=== PATIENT | female | born 1975 | race Caucasian/White ===

== ENCOUNTER 2024-03-24 14:30 | Outpatient (CLI) | payer BC, SELFPAY | END 2024-03-24 14:31 | disposition home or self-care (01) | PROVIDERS: Visit Provider Family Medicine | DX: R10.11 Right upper quadrant pain (principal) | CPT/HCPCS: 80053; 83690 ==

== ENCOUNTER 2024-03-24 15:25 | Outpatient (CLI) | payer BC, SELFPAY ==
--- NOTE | 2024-03-24 16:00 | CRLHL7_ITS ---
For Patients: As a result of the Century Cures Act, medical imaging exams and procedure reports are released immediately into your electronic medical record. You may view this report before your referring provider. If you have questions, please contact your health care provider. INDICATION: Right upper quadrant pain. TECHNIQUE: Ultrasound abdomen limited. Sonographic images of the right upper quadrant were obtained using perez-scale and color Doppler images. COMPARISON: None. FINDINGS: Technically difficult/limited exam due to bowel gas and tenderness. Liver: Mildly echogenic solid lesion in the left lobe with mass effect on the capsule measures up to 1.5 cm. Possible additional smaller echogenic lesion in the right lobe. No evidence of intrahepatic biliary ductal dilatation. Normal directional flow is present in the main portal vein. Main portal vein measures 13 mm. Gallbladder: There is a 2 mm echogenic focus associated with the wall. No shadowing stones, wall thickening or pericholecystic fluid. Common bile duct: 4 mm. Pancreas: Unremarkable as imaged. Right kidney: 10.6 cm in pole to pole length. No evidence of hydronephrosis, stone or solid mass. Vasculature: Visualized aorta and IVC are normal. No free fluid evident. IMPRESSION: 1. Left hepatic lobe 1.5 cm solid lesion is incompletely characterized. Possible additional smaller lesion in the right lobe. Follow-up MRI liver protocol is recommended for further evaluation. 2. Small (2 mm) polyp, adherent sludge ball or nonshadowing stone associated with the gallbladder wall. 3. No biliary ductal dilatation. 4. No ascites. Dictated by Rayshawn Liang MD @ 03/24/2024 4:58:32 PM Dictated by: Rayshawn Liang MD @ 03/24/2024 16:58:51 (Electronically Signed)
== END 2024-03-24 15:26 | disposition home or self-care (01) ==
LOC: US 15:27
PROVIDERS: PCP Family Medicine; Visit Provider Family Medicine
DX: R10.11 Right upper quadrant pain (principal); K76.9 Liver disease, unspecified; K82.9 Disease of gallbladder, unspecified
CPT/HCPCS: 76705; 80053; 83690

== ENCOUNTER 2024-04-01 07:44 | Outpatient (CLI) | payer BC, SELFPAY | END 2024-04-01 07:45 | disposition home or self-care (01) | LOC: MRI 07:45 | PROVIDERS: PCP Family Medicine; Visit Provider Family Medicine | DX: R16.0 Hepatomegaly, not elsewhere classified (principal); K44.9 Diaphragmatic hernia without obstruction or gangrene; R93.89 Abnormal findings on diagnostic imaging of other specified body structures; R10.11 Right upper quadrant pain | CPT/HCPCS: 74183; A9575 ==

== ENCOUNTER 2024-04-26 10:19 | Emergency (ER) | payer BC, SELFPAY ==
[2024-04-26] VITALS (13 sets, daily range): BP systolic 130–134; BP diastolic 78–93; PULSE 60–89; RESP 11–16; TEMP 36.7; O2SAT 96–100; BMI 43.1
--- NOTE | 2024-04-26 11:03 | ED.GENADULT ---
HPI - General Adult General Chief complaint: Weakness Stated complaint: leg pain, weakness Time Seen by Provider: 04/26/24 11:03 History of Present Illness HPI narrative: Pt reports 3-4 days ago noticed a heaviness in her Right leg. The next day, felt more tingling in Right leg, then more tingling in Left leg. Has a feeling of cramping now in legs and arms. Unable to sleep last night due to discomfort. Feels as if she is having pinpricks of pain throughout her body now, face, arms, etc . Reports weakness/ fatigue. Has a history of vitamin deficiencies. Pt is scheduled for gallbladder removal on May 05. Reports reduced dietary intake due to discomfort with eating. 49-year-old woman presenting to the emergency department with concern of maybe 5 days of a heaviness in her right leg. She is felt than increased tingling there are and then some tingling in her left leg. Has tingling elsewhere in her body and sensation of pinpricks rather diffusely. Increasingly just fatigued with a sense of ?malaise?. She does report history of vitamin deficiency specifically B12 for which she receives injections including yesterday and having felt similar symptoms in the past with abnormalities of potassium as well. She does not have a history of gastric bypass. Has struggled for some time with gallbladder problems and is pending cholecystectomy on May 05. This heaviness in her right leg though as the new or sensation. It has not left her discoordinated. She has had a history of low vitamin-D as well. Apparently sees provider manages various vitamin levels. With this gallbladder discomfort/pain has been decreasing oral intake and is worried that this has destabilized vitamins Seen for preop yesterday in primary care and had unremarkable lumbar spine x-ray. While being triaged began to notice a more heaviness in her chest. No noted family history of neuromuscular disorders. She does not however know her paternal side. Further questioning regarding chest pain notes that she associates this with her gallbladder discomfort. It it hurts into her shoulder blades and then causes chest discomfort. When she is arching back it is exacerbating the chest discomfort as anticipated. 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 No alcohol use. What is your current living situation?: I presently have a place to live Problems where you live: no known problems In the past 12 months, utilities in danger of being shut off: no In past 12 months, lack of transportation kept you from medical appts, meetings, work, or getting things needed for daily living: no In the past 12 mos, have been you worried that your food would run out before you had money to buy more?: never true In the past 12 mos, the food you bought just didn't last and you didn't have money to buy more?: never true Smoking Status: Unknown if ever smoked Non-prescribed substance use: denies use How often does anyone, including family, friends and others, physically hurt you: never How often does anyone, including family, friends and others, insult or talk down to you: never How often does anyone, including family, friends and others, threaten you with harm: never How often does anyone, including family, friends and others, scream or curse at you: never Exam Narrative: Exam Narrative: Pleasant. NAD. Just looks as though she does does not feel very well. Moving all extremities without difficulty. Subjectively strange heaviness though in the right leg. Sensation intact throughout. No weakness is appreciated. Intact and equal DTRs in lower extremities. Cranial nerves 2-12 are intact. Normal [id number]. Const: Vital Signs, click to edit/add: Vital Signs - 24 hr 04/26/24 10:39 04/26/24 11:04 04/26/24 11:34 Temperature 98.1 F Pulse Rate 69 64 Pulse Rate [Pulse Oximeter] 89 Respiratory Rate 16 Blood Pressure 134/91 H 134/80 Blood Pressure [Ri ght Upper Arm] 130/93 H Pulse Oximetry 96 99 98 Oxygen Delivery Me thod Room Air 04/26/24 12:01 04/26/24 13:02 04/26/24 13:03 Temperature Pulse Rate 62 62 Pulse Rate [Pulse Oximeter] Respiratory Rate 11 L 12 Blood Pressure 131/82 130/78 Blood Pressure [Ri ght Upper Arm] Pulse Oximetry 98 99 Oxygen Delivery Me thod 04/26/24 13:15 04/26/24 13:30 04/26/24 13:45 Temperature Pulse Rate 61 60 61 Pulse Rate [Pulse Oximeter] Respiratory Rate Blood Pressure Blood Pressure [Ri ght Upper Arm] Pulse Oximetry 97 99 97 Oxygen Delivery Me thod 04/26/24 14:00 04/26/24 14:01 04/26/24 14:15 Temperature Pulse Rate 69 68 73 Pulse Rate [Pulse Oximeter] Respiratory Rate 12 Blood Pressure 130/86 Blood Pressure [Ri ght Upper Arm] Pulse Oximetry 98 98 98 Oxygen Delivery Me thod 04/26/24 14:29 Temperature Pulse Rate 68 Pulse Rate [Pulse Oximeter] Respiratory Rate 16 Blood Pressure 130/86 Blood Pressure [Ri ght Upper Arm] Pulse Oximetry 100 Oxygen Delivery Me thod Room Air Documenting provider has reviewed patient's vital signs: yes Course Vital Signs Vital signs: Initial Vital Signs Temperature 98.1 F 04/26/24 10:39 Temperature Source Temporal Artery Scan 04/26/24 10:39 Pulse Rate 89 04/26/24 10:39 Respiratory Rate 16 04/26/24 10:39 Blood Pressure 130/93 H 04/26/24 10:39 Blood Pressure Mean 105 04/26/24 10:39 Blood Pressure Position Sitting 04/26/24 10:39 Pulse Oximetry 96 04/26/24 10:39 Oxygen Delivery Method Room Air 04/26/24 10:39 Vital Signs Temperature 98.1 F 04/26/24 10:39 Pulse Rate 89 04/26/24 10:39 Respiratory Rate 16 04/26/24 10:39 Blood Pressure 130/93 H 04/26/24 10:39 Pulse Oximetry 96 04/26/24 10:39 Oxygen Delivery Method Room Air 04/26/24 10:39 Temperature 98.1 F 04/26/24 10:39 Pulse Rate 68 04/26/24 14:29 Respiratory Rate 16 04/26/24 14:29 Blood Pressure 130/86 04/26/24 14:29 Pulse Oximetry 100 04/26/24 14:29 Oxygen Delivery Method Room Air 04/26/24 14:29 Medications Administered Medications: Discontinued Medications Generic Name Dose Route Start Last Admin Trade Name Stephanie PRN Reason Stop Dose Admin Aspirin 324 mg 04/26/24 11:01 04/26/24 11:05 Aspirin 81 Mg Tab.Chew PO 04/26/24 11:02 324 mg ONCE ONE Administration Sodium Chloride 1,000 mls @ 1,000 mls/hr 04/26/24 12:45 04/26/24 14:25 0.9 % Sodium Chloride 1000 Ml IV 04/26/24 13:44 Infused .Q1H ONE Infusion Ondansetron HCl 4 mg 04/26/24 11:01 04/26/24 13:43 Ondansetron 2 Mg/Ml Inj IVP 04/26/24 11:02 Not Given ONCE ONE Medical Decision Making MDM Narrative Medical decision making narrative: Prior to my seeing Ms. Dunn, Had been ordered aspirin by other provider. Limited potential to evaluate for electrolyte abnormalities. Differential does include stroke though this is markedly subacute I do not appreciate any abnormality other than just sensory at this point. Would also have concerns over potential neuromuscular disorder, MS. Does not appear to be vascular in origin. Well-perfused and without pain. Do not have ability to do MRI here today on the weekend. Her primary concern is electrolyte abnormalities given history. labs reviewed. Reassuring. elevated B12 not inconsistent with recent injection I think. TSH is normal. per concerns vitamin-D and B6 are still pending. Given IV hydration here in the ER. Monitored over time here in the emergency department without further event. Might benefit from daily aspirin. See patient discharge plan for further discussion I would continue to focus on hydration. Yes, perhaps some of your symptoms are related to an inflammatory state. Pending yet are vitamin-D and vitamin B6 levels. I would message your primary for follow-up. You may want to pursue further imaging pending improvement of symptoms. Be seen for marked increase in focal numbness but especially isolated weakness. Medical Records Medical records reviewed: Yes I reviewed the patient's medical records Lab Data Lab results reviewed: Yes I reviewed the patient's lab results Labs: Lab Results 04/26/24 04/26/24 04/26/24 Range/Units 10:51 11:07 11:30 WBC 6.97 (4.50-11.00) K/uL RBC 5.00 (4.00-5.20) m/uL Hgb 15.3 (12.0-16.0) gm/dL Hct 45.6 (33.0-51.0) % MCV 91 (80-100) fL MCH 31 (26-34) pg MCHC 34 (32-36) gm/dL RDW Coeff of Keanu 12.5 (11.5-15.5) % Plt Count 260 (140-440) K/uL Neut % (Auto) 65.9 (42.0-72.0) % Lymph % (Auto) 23.5 (20-44) % Cook % (Auto) 8.3 (0.0-11.0) % Eos % (Auto) 1.6 (0.0-7.0) % Baso % (Auto) 0.6 (0.0-3.0) % Neut # (Auto) 4.59 (1.7-7.0) K/uL Lymph # (Auto) 1.64 (0.90-2.90) K/uL Cook # (Auto) 0.60 (0.00-0.90) K/UL Eos # (Auto) 0.11 (0.00-0.50) K/uL Baso # (Auto) 0.04 (0.00-0.30) K/uL Abs Immat Gran (auto) 0.01 (0.00-0.30) K/uL Imm/Tot Granulo (auto) 0.1 % Sodium 139 (135-149) mmol/L Potassium 3.9 (3.6-5.1) mmol/L Chloride 104 (96-114) mmol/L Carbon Dioxide 27 (20-32) mmol/L Anion Gap 8 (7-15) mEq/L BUN 15 (7-30) mg/dL Creatinine 1.0 (0.5-1.5) mg/dL Estimated Creat Clear 60.56 Estimated GFR 69 ml/min Glucose 98 (60-115) mg/dL Calcium 9.3 (8.4-10.6) mg/dL Magnesium 2.3 (1.5-2.6) mg/dL Vitamin B12 > 1000 H (243-894) pg/mL 25-OH Vitamin D Total 79 (30-80) ng/mL TSH 5.410 H (0.270-4.20) uIU/mL Lab Acknowledgement Test Added POC Troponin I 0.00 L (0.01-0.04) ng/ml 04/26/24 04/26/24 Range/Units 11:31 13:04 WBC (4.50-11.00) K/uL RBC (4.00-5.20) m/uL Hgb (12.0-16.0) gm/dL Hct (33.0-51.0) % MCV (80-100) fL MCH (26-34) pg MCHC (32-36) gm/dL RDW Coeff of Keanu (11.5-15.5) % Plt Count (140-440) K/uL Neut % (Auto) (42.0-72.0) % Lymph % (Auto) (20-44) % Cook % (Auto) (0.0-11.0) % Eos % (Auto) (0.0-7.0) % Baso % (Auto) (0.0-3.0) % Neut # (Auto) (1.7-7.0) K/uL Lymph # (Auto) (0.90-2.90) K/uL Cook # (Auto) (0.00-0.90) K/UL Eos # (Auto) (0.00-0.50) K/uL Baso # (Auto) (0.00-0.30) K/uL Abs Immat Gran (auto) (0.00-0.30) K/uL Imm/Tot Granulo (auto) % Sodium (135-149) mmol/L Potassium (3.6-5.1) mmol/L Chloride (96-114) mmol/L Carbon Dioxide (20-32) mmol/L Anion Gap (7-15) mEq/L BUN (7-30) mg/dL Creatinine (0.5-1.5) mg/dL Estimated Creat Clear Estimated GFR ml/min Glucose (60-115) mg/dL Calcium (8.4-10.6) mg/dL Magnesium (1.5-2.6) mg/dL Vitamin B12 (243-894) pg/mL 25-OH Vitamin D Total (30-80) ng/mL TSH (0.270-4.20) uIU/mL Lab Acknowledgement Test Added POC Troponin I 0.00 L (0.01-0.04) ng/ml ECG Data Attestation: I personally reviewed and interpreted this ECG as follows: (Normal sinus rhythm. Generally lower amplitude. Rate 67. EKG 2. Is also in sinus at a rate of 59. Otherwise unchanged.) Discharge Plan Discharge Clinical Impression: Neuropathy, Malaise and fatigue Patient Disposition: Home w/ Parent or Adult Condition: Improved Additional Instructions: I would continue to focus on hydration. Yes, perhaps some of your symptoms are related to an inflammatory state. Pending yet are vitamin-D and vitamin B6 levels. I would message your primary for follow-up. You may want to pursue further imaging pending improvement of symptoms. Be seen for marked increase in focal numbness but especially isolated weakness. Prescriptions: No Action levothyroxine 88 mcg capsule 88 mcg PO QDAY epinephrine [EpiPen] 0.3 mg/0.3 mL auto-injector 0.3 mg IM Q5-15M PRN Rx Instructions: do not exceed 3 doses per episode Follow Up/Referrals: Veronica Estevez MD [Primary Care Provider] - Stand Alone Forms: [employer] Info Instructions
[2024-04-26] MEDS: ASPIRIN 81 MG TAB.CHEW 324 MG PO (11:05)
[2024-04-26 11:22] LABS: Basophils Absolute Auto 0.04 K/uL (0.00-0.30); Basophils Percent Auto 0.6 % (0.0-3.0); Eosinophils Absolute Auto 0.11 K/uL (0.00-0.50); Eosinophils Percent Auto 1.6 % (0.0-7.0); Hematocrit 45.6 % (33.0-51.0); Hemoglobin* 15.3 gm/dL (12.0-16.0); Immature Granulocytes Abs Auto 0.01 K/uL (0.00-0.30); Immature Granulocytes Pct Auto 0.1 %; Lymphocytes Absolute Auto 1.64 K/uL (0.90-2.90); Lymphocytes Percent Auto 23.5 % (20-44); Mean Corpuscular HGB Conc 34 gm/dL (32-36); Mean Corpuscular Hemoglobin 31 pg (26-34); Mean Corpuscular Volume 91 fL (80-100); Monocytes Percent Auto 8.3 % (0.0-11.0); Neutrophils Absolute Auto 4.59 K/uL (1.7-7.0); Neutrophils Percent Auto 65.9 % (42.0-72.0); Platelet Count* 260 K/uL (140-440); RDW Coefficient of Variation % 12.5 % (11.5-15.5); White Blood Count* 6.97 K/uL (4.50-11.00)
[2024-04-26 11:23] LABS: Slide Review Reflex No
[2024-04-26 11:32] LABS: Chloride* 104 mmol/L (96-114); Sodium* 139 mmol/L (135-149)
[2024-04-26 11:33] LABS: Potassium* 3.9 mmol/L (3.6-5.1)
[2024-04-26 11:35] LABS: Anion Gap 8 mEq/L (7-15); Blood Urea Nitrogen* 15 mg/dL (7-30); Carbon Dioxide* 27 mmol/L (20-32); Est. Creatinine Clearance* 60.56; Estimated Glomerular Filt Rate 69 ml/min
[2024-04-26 11:36] LABS: Calcium* 9.3 mg/dL (8.4-10.6); Glucose* 98 mg/dL (60-115)
--- OUTSIDE RECORDS SUMMARY | 2024-04-26 11:41 | XMS_ITS ---
Author Organization [facility] Address [address] [place] [address] Care Team Providers Care Ship/Rec/Doc Control Name Role Phone Juliocesar June Primary Care Provider Unavailab FIDEL Javed Unavailable [phone] Corine Bullard Unavailable Unavailable Allergies Allergen (clinical drug ingredient) Drug/Non Drug Allergy documented on EMR Reaction Allergy Type Onset Date Status piperacillin / tazobactam Zosyn Unknown Drug Allergy Active ciprofloxacin Ciprofloxacin Unknown Drug Allergy Active REASON FOR VISIT ENT Follow Up Medications Medication SIG (Take, Route, Frequency, Duration) Notes Start Date End Date Status Doxycycline Active Citalopram Hydrobromide Active Mometasone Furoate 50 MCG/ACT 2 sprays in each nostril Nasally Twice a day for 30 day(s) 04/11/2013 Active Social History Tobacco Use: Social History Observation Description Date Details (start date - stop date) Never Smoker NA - NA Tobacco Control (Standard) Question Answer Notes Tobacco use: Nonsmoker Encounters Encounter Location Date Provider Diagnosis [facility] [address] [place] [address] 11/08/2023 FIDEL GREENE Plan Of Treatment No Information Progress Notes * Carmelita DUNN MDOB: [birth year] (49 yo F)Acc No.[id number]:11/08/2023 Patient: Ashok Carmelita TRAORE Provider: Kathy GREENE MD :1975 A ge:48 Y S ex:Female Date:11/08/2023 Address:[address] [facility] Pcp:Juliocesar June Subjective: * Chief Complaints: * 1 . ENT Follow Up. * Medical History: C hronic rhinitis and recurrent nose sinus troubles, Low thyroid, Anxiety. * Family History: N o Family History documented.. * Social History: T obacco Use: T obacco use/smoking A re you a: nonsmoker. Tobacco Control (Standard) T obacco use: N onsmoker * Medications: T aking Doxycycline , Taking Citalopram Hydrobromide , Taking Mometasone Furoate 50 MCG/ACT Suspension 2 sprays in each nostril Nasally Twice a day , Medication List reviewed and reconciled with the patient * Allergies: Z osyn, Ciprofloxacin. Objective: * Vitals: Assessment: Plan: * Treatment: * * Electronic signature of JERRI GREENE MD on 04/26/2024 at 11:41 AM FASHION CONSULTANT Sign off status: Pending * Provider: Kathy GREENE MD Date: 0 11/08/2023 Generated for Chirag kohler/Farhat/Claraitting on: 0 04/26/2024 11:41 AM FASHION CONSULTANT
--- OUTSIDE RECORDS SUMMARY | 2024-04-26 11:41 | XMS_ITS | Patient Health Record ---
Author Organization [facility] Address [address] [place] [address] Care Team Providers Care Sash Maker Name Role Phone Juliocesar June Primary Care Provider Unavailab FIDEL Javed Unavailable [phone] Corine Bullard Unavailable Unavailable Allergies Allergen (clinical drug ingredient) Drug/Non Drug Allergy documented on EMR Reaction Allergy Type Onset Date Status piperacillin / tazobactam Zosyn Unknown Drug Allergy Active ciprofloxacin Ciprofloxacin Unknown Drug Allergy Active Reason For Referral No Information Medications Medication SIG (Take, Route, Frequency, Duration) [...] (Standard) Question Answer Notes Tobacco use: Nonsmoker Problems Problem Type SNOMED Code ICD Code Onset Dates Problem Status W/U Status Risk Notes Problem 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 Problem Nasal Raul/Perf/Ob struction/Ab scess (478.19) Active confirmed Problem Deviated nasal septum (937094171) Nasal septum, deviated, acquired (470) Active confirmed Problem Nasal polyp (60850249) Nasal polyps (471.0) Active confirmed Problem Chronic rhinitis (99763501) Rhinitis, chronic (472.0) Active confirmed Problem 491237550 Nasal polyp (J33.9) Active confirmed Problem 689740920 Left chronic serous otitis media (H65.22) Active confirmed Problem 4312950392398784 ETD (Eustachian tube dysfunction) , left (H69.92) Active confirmed Vital Signs Temperature 97.8 degrees Fahrenheit 07/17/2023 Height-cm 165.1 cm 07/17/2023 Weight-kg 108.41 kg 07/17/2023 Height 65 in 07/17/2023 Weight 239 lbs 07/17/2023 BMI 39.77 kg/m2 07/17/2023 Encounters Encounter Location Date Provider Diagnosis [facility] [place] [address] [place] [address] 07/17/2023 FIDEL GREENE Left chronic serous otitis media H65.22 ; Nasal polyp J33.9 and ETD (Eustachian tube dysfunction), left H69.92 [facility] [address] [place] [address] 07/18/2023 FIDEL GREENE Assessments Encounter Date Diagnosis (ICD Code) Assessment Notes Treatment Notes Treatment Clinical Notes Section Notes 07/17/2023 Nasal polyp (ICD-10 - J33.9) He has a long history of a nasal polyp in the right which has been present for some time. Recent CT scan was reviewed I do not see any evidence of sinusitis on the scan. Skin was not dedicated to the sinuses not complete but maxillary sinus appear to be aerated. She could have polypectomy if not improved. In office polypectomy might be the best approach. Course of prednisone should help the polyp. If she is minimally symptomatic after treatment medications can hold off on polypectomy. Recommend using Flonase daily basis to help control nasal polyps also improve Eustachian tube function. 07/17/2023 Left chronic serous otitis media (ICD-10 - H65.22) Reviewed the CT temporal bones from [facility] (images and report) and no masses, + fluid in left ear and mastoid - no evidence of CHILD WELFARE CASEWORKER mass. Recommend course of prednisone, follow up 3-4 weeks. If the fluid does not clear then will recommend placement of a PE tube at the visit. We will get an audiogram at the next visit. 07/17/2023 ETD (Eustachian tube dysfunction), left (ICD-10 - H69.92) Plan Of Treatment No Information Insurance Providers Payer Name Payer Address Payer Phone Subscriber Number Group Number Insured Name Patient Relationship to Insured Coverage Start Date Coverage End Date [facility] [address] [address] [place] [address] [id number] Carmelita Dunn Self - patient is the insured 2 Medical (General) History Medical History History ICD Code chronic rhinitis and recurrent nose sinu s troubles low thyroid anxiety
--- OUTSIDE RECORDS SUMMARY | 2024-04-26 11:41 | XMS_ITS ---
Author Organization [facility] Address [address] [place] [address] Care Team Providers Care Sterilizer Operator Name Role Phone Juliocesar June Primary Care Provider Unavailab FIDEL Javed Unavailable [phone] Corine Bullard Unavailable Unavailable Allergies Allergen (clinical drug ingredient) Drug/Non Drug Allergy documented on EMR Reaction Allergy Type Onset Date Status piperacillin / tazobactam Zosyn Unknown Drug Allergy Active ciprofloxacin Ciprofloxacin Unknown Drug Allergy Active REASON FOR VISIT Follow-up ears/nasal polyp Medications Medication SIG (Take, Route, Frequency, Duration) Notes Start Date End Date Status Mometasone Furoate 50 MCG/ACT 2 sprays in each nostril Nasally Twice a day for 30 day(s) 04/11/2013 Active Citalopram Hydrobromide Active Doxycycline Active Social History Tobacco Use: Social History Observation Description Date Details (start date - stop date) Never Smoker NA - NA Tobacco Control (Standard) Question Answer Notes Tobacco use: Nonsmoker Encounters Encounter Location Date Provider Diagnosis [facility] [address] [place] [address] 10/18/2023 FIDEL GREENE Plan Of Treatment No Information Progress Notes * Carmelita DUNN MDOB: [birth year] (49 yo F)Acc No.[id number]:10/18/2023 Patient: Ashok Carmelita TRAORE Provider: Kathy GREENE MD :1975 A ge:48 Y S ex:Female Date:10/18/2023 Address:[facility] [address] [facility] Pcp:Juliocesar June Subjective: * Chief Complaints: * 1 . Follow-up ears/nasal polyp. * Medical History: C hronic rhinitis and [...] GREENE MD on 04/26/2024 at 11:41 AM PROFESSOR OF SURGERY Sign off status: Pending * Provider: Kathy GREENE MD Date: 0 10/18/2023 Generated for Chirag kohler/Farhat/Claraitting on: 0 04/26/2024 11:41 AM PROFESSOR OF SURGERY
--- OUTSIDE RECORDS SUMMARY | 2024-04-26 11:42 | XMS_ITS | Encounter Summary ---
Author Organization [facility] Address [address] [place] [address] Care Team Providers Care Gold Assayer Name Role Phone Robert Hatch MD Primary Care Provider [phone] [facility] Primary Care Provid er Unavailable Corine Bullard PA-C Primary Care Provider + [phone] Corine Bullard PA-C Unavailable [phone] Corine Bullard-Leo Unavailable [phone] Mery Reyna RN Unavailable Unavailable Tiffany Dinero MD Unavailable + Juliocesar June MD Primary Care Provider [phone] Tiffany Dinero MD Unavailable + Tiffany Dinero MD Unavailable + Indiana Rangel MD Unavailable [phone] Encounter Details Date Type Department Care Team (Late st Contact Info) Description 05/03/2009 [facility] [address] [phone] [place] [address] [place] [address] Social History Tobacco Use Types Packs/Day Years Used Date Smoking Tobacco: Never Alcohol Use Standard Drinks/Week Comments Not Asked 0 (1 standard drink = 0.6 oz pur e alcohol) Comments No Sex and Gender Information Value Date Recorded Sex Assigned at Female 05/15/2020 4:50 PM CDT Legal Sex Female 4:19 AM CUSTOMER SALES DISTRIBUTOR Gender Identity Female 05/15/2020 4:50 PM CDT Sexual Orientation Straight 05/15/2020 4: 50 PM CDT documented as of this encounter Plan of Treatment Not on file documented as of this encounter Visit Diagnoses Not on filedocumented in this encounter Additional Health Concerns Infection Onset Date Last Indicated Resolved Time Rule Out COVID-19 09/16/2019 09/16/2019 09/18/2019 1:55 PM CDT Rule Out COVID-19 04/10/2020 04/10/2020 04/11/2020 3:27 PM CUSTOMER SALES DISTRIBUTOR Rule Out COVID-19 06/14/2021 06/14/2021 06/14/2021 10:34 PM CDT Rule Out COVID-19 11/15/2022 11/15/2022 11/15/2022 6:00 PM CDT Rule Out COVID-19 01/16/2023 01/16/2023 01/16/2023 5:19 PM CUSTOMER SALES DISTRIBUTOR Rule Out COVID-19 02/14/2023 02/14/2023 02/14/2023 6:41 PM CUSTOMER SALES DISTRIBUTOR Rule Out COVID-19 02/27/2023 02/27/2023 02/28/2023 12:40 AM CUSTOMER SALES DISTRIBUTOR COVID-19 02/27/2023 02/27/2023 03/20/2023 11:3 9 PM CUSTOMER SALES DISTRIBUTOR Rule Out COVID-19 08/22/2023 08/22/2023 08/22/2023 1:50 PM CDT documented as of this encounter Care Teams Gold Assayer Relationship Specialty [place] [address] [place] [address] PCP - General 08/31/01 03/13/13 [facility] PCP - General 11/19/13 10/07/14 Corine Bullard PA-C PCP - General Physician Maori Liaison Adviser 10/08/14 11/14/22 Corine Bullard PA-C [address] [place] [address] [place] [address] PCP - Assigned PCP 07/29/17 04/23/18 Juliocesar June MD [address] [place] [address] PCP - General Internal Medicine 11/15/22 Corine Bullard PA-C Assigned PCP 07/29/17 08/11/23 Mery Reyna, BRY Personal Advocate & Liaison (PAL) Nurse 05/24/20 06/28/20 Tiffany Dinero MD [address] [place] [address] [place] [address] Assigned OBGYN Provider 09/24/21 2 4 Tiffany Dinero MD [address] [place] [address] [place] [address] inspector glass or mirror 08/13/23 Tiffany Dinero MD [address] [place] [address] [place] [address] Assigned OBGYN Provider 09/11/23 Indiana Rangel MD [address] [place] [address] [place], [place] [id number] Assigned PCP 02/11/24 documented as of this encounter
--- OUTSIDE RECORDS SUMMARY | 2024-04-26 11:42 | XMS_ITS | Encounter Summary ---
Author Organization [facility] Address [address] [place] [address] Care Team Providers Care Aids Counselor Name Role Phone Robert Hatch MD Primary Care Provider [phone] [facility] Primary Care Provid er Unavailable Corine Bullard PA-C Primary Care Provider + [phone] Corine Bullard-Leo Unavailable [phone] Corine Bullard-Leo Unavailable [phone] Mery Reyna RN Unavailable Unavailable Tiffany Dinero MD Unavailable + Juliocesar June MD Primary Care Provider [phone] Tiffany Dinero MD Unavailable + Tiffany Dinero MD Unavailable + Indiana Rangel MD Unavailable [phone] Reason for Visit * Reason Onset Date Comments Health Maintenance 03/13/2011 phs done else where Encounter Details Date Type Department Care Team (Late st Contact Info) Description 03/13/[address] [address] [place] [address] [place] [address] Health Maintenance (phs done elsewhere) Social History Tobacco Use Types Packs/Day Years Used Date Smoking Tobacco: Never Smokeless Tobacco: Never Alcohol Use Standard Drinks/Week Comments Yes 0 (1 standard drink = 0.6 oz pur e alcohol) 1-2 x/year Comments No Sex and Gender Information Value Date Recorded Sex Assigned at Female 05/15/2020 4:50 PM CDT Legal Sex Female 4:19 AM INSTRUMENT INSTALLER Gender Identity Female 05/15/2020 4:50 PM CDT Sexual Orientation Straight 05/15/2020 4: 50 PM CDT documented as of this encounter Miscellaneous Notes * Telephone Encounter - Monica Godwin - 03/13/2011 1:40 PM CST Please abstract the following data from this visit with this patient into the appropriate field in Epic: Pap smear done on this date: 02/23/11, by this group: [facility], results were normal. RUMENT INSTALLER documented in this encounter Plan of Treatment Not on file documented as of this encounter Visit Diagnoses Not on filedocumented in this encounter Additional Health Concerns Infection Onset Date Last Indicated Resolved Time Rule Out COVID-19 09/16/2019 09/16/2019 09/18/2019 1:55 PM CDT Rule Out COVID-19 04/10/2020 04/10/2020 04/11/2020 3:27 PM INSTRUMENT INSTALLER Rule Out COVID-19 06/14/2021 06/14/2021 06/14/2021 10:34 PM CDT Rule Out COVID-19 11/15/2022 11/15/2022 11/15/2022 6:00 PM CDT Rule Out COVID-19 01/16/2023 01/16/2023 01/16/2023 5:19 PM INSTRUMENT INSTALLER Rule Out COVID-19 02/14/2023 02/14/2023 02/14/2023 6:41 PM INSTRUMENT INSTALLER Rule Out COVID-19 02/27/2023 02/27/2023 02/28/2023 12:40 AM INSTRUMENT INSTALLER COVID-19 02/27/2023 02/27/2023 03/20/2023 11:3 9 PM INSTRUMENT INSTALLER Rule Out COVID08/22/2023 08/22/2023 08/22/2023 1:50 PM CDT documented as of this encounter Care Teams Aids Counselor Relationship Specialty [place] [address] [place] [address] PCP - General 08/31/01 03/13/13 [facility] PCP - General 11/19/13 10/07/14 Corine Bullard PA-C PCP - General Physician Correspondence Section Supervisor 10/08/14 11/14/22 Corine Bullard PA-C [address] [place] [address] [place] [address] PCP - Assigned PCP 07/29/17 04/23/18 Juliocesar June MD [address] [place] [id number] PCP - General Internal Medicine 11/15/22 Corine Bullard PA-C Assigned PCP 07/29/17 08/11/23 Mery Reyna, BRY Personal Advocate & Liaison (PAL) Nurse 05/24/20 06/28/20 Tiffany Dinero MD [address] [place] [address] [place] [id number] Assigned OBGYN Provider 09/24/21 4 Tiffany Dinero MD [address] [place] [address] [place] [id number] leach cell operator 08/13/23 Tiffany Dinero MD [facility] [facility] 100 [place] [address] Assigned OBGYN Provider 09/11/23 [place] Rangel MD [address] [facility] 275 [place] [address] Assigned PCP 02/11/24 documented as of this encounter
--- OUTSIDE RECORDS SUMMARY | 2024-04-26 11:42 | XMS_ITS | Encounter Summary ---
Author Organization [facility] Address [address] [place] [address]. [place] [address] Care Team Providers Care Accounting Specialist Name Role Phone Corine Bullard PA-C Primary Care Provider + [phone] Coirne Bullard PA-C Unavailable [phone] Mery Reyna RN Unavailable Unavailable Tiffany Dinero MD Unavailable + Juliocesar June MD Primary Care Provider [phone] Tiffany Dineor MD Unavailable + Tiffany Dinero MD Unavailable + Indiana Rangel MD Unavailable [phone] Reason for Visit * Reason Comments Medication Refill Encounter Details Date Type Department Care Team (Late st Contact Info) Description 06/23/[address] [address] Corine Bullard PA-C [address] [address] Medication Refill Social History Tobacco Use Types Packs/Day Years Used Date Smoking Tobacco: Never Smokeless Tobacco: Never Alcohol Use Standard Drinks/Week Comments No 0 (1 standard drink = 0.6 oz pur e alcohol) PHQ-2 Answer Date Recorded PHQ-2 Score 0 06/23/2020 Comments No Sex and Gender Information Value Date Recorded Sex Assigned at Female 05/15/2020 4:50 PM CDT Legal Sex Female 4:19 AM FEEDLOT MANAGER Gender Identity Female 05/15/2020 4:50 PM CDT Sexual Orientation Straight 05/15/2020 4: 50 PM CDT COVID-19 Exposure Response Date Recorded In the last month, have you been in contact with someone who was confirmed or suspected to have Coronavirus / COVID-19? No / Unsure 06/10/2020 1:03 PM CDT documented as of this encounter Miscellaneous Notes * Telephone Encounter - Rich Baxter RN - 06/24/2020 12:41 PM CDT Routing to PCP, notification offering Priair Respiclick as preferred alternative through patients insurance plan, please sign if applicable, can refuse if not Rich Baxter RN documented in this encounter Plan of Treatment Not on file documented as of this encounter Visit Diagnoses Diagnosis SOB (shortness of breath) Shortness of breath documented in this encounter Additional Health Concerns Infection Onset Date Last Indicated Resolved Time Rule Out COVID-19 06/14/2021 06/14/2021 06/14/2021 10:34 PM CDT Rule Out COVID-19 11/15/2022 11/15/2022 11/15/2022 6:00 PM CDT Rule Out COVID-19 01/16/2023 01/16/2023 01/16/2023 5:19 PM FEEDLOT MANAGER Rule Out COVID-19 02/14/2023 02/14/2023 02/14/2023 6:41 PM FEEDLOT MANAGER Rule Out COVID-19 02/27/2023 02/27/2023 02/28/2023 12:40 AM FEEDLOT MANAGER COVID-19 02/27/2023 02/27/2023 03/20/2023 11:3 9 PM FEEDLOT MANAGER Rule Out COVID-19 08/22/2023 08/22/2023 08/22/2023 1:50 PM CDT Assessment Noted Time PHQ-9 Depression Total Score: 3 06/12/19 21 7:03 AM CDT documented as of this encounter Care Teams Accounting Specialist Relationship Specialty Start Date End Date Corine Bullard PA-C PCP - General Physician Chronometer Adjuster 10/08/14 11/14/22 Juliocesar June MD [address] [place] [id number] PCP - General Internal Medicine 11/15/22 Corine Bullard PA-C Assigned PCP 07/29/17 08/11/23 Mery Reyna, BRY Personal Advocate & Liaison (PAL) Nurse 05/24/20 06/28/20 Tiffany Dinero MD [address] [place] [address] [place] [address] Assigned OBGYN Provider 09/24/21 4 Tiffany Dinero MD [address] [place] [address] [place] [address] toolroom keeper 08/13/23 Tiffany Dinero MD [address] [place] [address] [place] [address] Assigned OBGYN Provider 09/11/23 Indiana Rangel MD [address] [place] [address] [place] [address] Assigned PCP 02/11/24 documented as of this encounter
--- OUTSIDE RECORDS SUMMARY | 2024-04-26 11:42 | XMS_ITS | Encounter Summary ---
Author Organization [facility] Address [address] [place] [address] Care Team Providers Care Fur Buyer Name Role Phone Juliocesar June MD Primary Care Provider [phone] Tiffany Dinero MD Unavailable + Tiffany Dinero MD Unavailable + Indiana Rangel MD Unavailable [phone] Encounter Details Date Type Department Care Team (Late st Contact Info) Description 01/25/2024 [facility] [address], [address] [place] [address] Indiana Rangel MD [address] [facility] [place] [address] [place] [address] Social History Tobacco Use Types Packs/Day Years Used Date Smoking Tobacco: Never Smokeless Tobacco: Never Alcohol Use Standard Drinks/Week Comments No 0 (1 standard drink = 0.6 oz pur e alcohol) PHQ-2 Answer Date Recorded PHQ-2 Score 0 10/11/2023 Adolescent Education Answer Date Record ed Getting School Help Needed Not on file 11/11 Comments No Sex and Gender Information Value Date Recorded Sex Assigned at Female 05/15/2020 4:50 PM CDT Legal Sex Female 4:19 AM WOODWORK TEACHER Gender Identity Female 05/15/2020 4:50 PM CDT Sexual Orientation Straight 05/15/2020 4: 50 PM CDT documented as of this encounter Miscellaneous Notes * Telephone Encounter - Joslyn Mills, RN - 01/25/2024 2:53 PM CST FS, Please see below MyChart message Patient attached pictures related to triage encounter from today Joslyn Herrmann RN WORK TEACHER documented in this encounter Plan of Treatment Not on file documented as of this encounter Visit Diagnoses Not on filedocumented in this encounter Additional Health Concerns Assessment Noted Time PHQ-9 Depression Total Score: 1 09/21/19 22 11:46 AM CDT documented as of this encounter Care Teams Fur Buyer Relationship Specialty Start Date End Date Juliocesar June MD [address] [place] [address] PCP - General Internal Medicine 11/15/22 Tiffany Dinero MD [address] [address] [place] [address] combat control manager 08/13/23 Tiffany Dinero MD [address] [address] [place] [address] Assigned OBGYN Provider 09/11/23 Indiana Rangel MD [address] [place] [address] [place] [address] Assigned PCP 02/11/24 documented as of this encounter
--- OUTSIDE RECORDS SUMMARY | 2024-04-26 11:42 | XMS_ITS | Clinical Summary ---
Author Organization [facility] Address [address] [place] [address] Care Team Providers Care Custodial Services Manager Name Role Phone Pcp, No Primary Care Provider Unavailabl e Allergies Active Allergy Reactions Criticality Noted Date Comments Ciprofloxacin Other - Describe In Comment Field 11/20/2022 Other Reaction(s): Headache, Joint/tendon pain Piperacillin-Tazobactam Hives 11/17/2017 Pt became very anxious and had a couple of hives. Shrimp Throat Swelling/Closing High 11/20/2022 Other Reaction(s): Itchy throat. Medications levothyroxine (SYNTHROID) 88 mcg tablet Take by mouth. 09/27/19 23 Active EPINEPHrine (EPIPEN) 0.3 mg/0.3 mL auto-injector ADMINISTER 0.3 ML INTRAMUSCULARLY NEEDED 02/15/20 23 Active albuterol HFA (PRO-AIR; VENTOLIN; PROVENTIL) 90 mcg/actuation inhalerIndicat ions:Viral URI with cough Inhale 1-2 Puffs by mouth every 4 hours if needed for Shortness Of Breath or Wheezing. 3 Each 3 12/30/19 24 Active methylPREDNISo lone (Medrol, Hernan,) 4 mg tabletIndicati ons:Acute midline low back pain with right-sided sciatica Take by mouth as instructed per packaging. 21 Tablet 02/27/19 25 Active cyclobenzaprin e (FLEXERIL) 5 mg tabletIndicati ons:Acute midline low back pain with right-sided sciatica,Flank pain Take 1 Tablet (5 mg) by mouth three times daily. 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 Provider to review Chest pain 08/11/2005 Overview (09/26/2021): Problem list name updated by automated process. Provider to review Encounters Date Type Department Care Team Description 03/01/2024 Telephone [facility] [address] [place] [address] Sabine Mejia, SCHOOL BUS DRIVER/CUSTODIAN Results 02/28/2024 1:50 PM PROP ATTENDANT Office Visit [facility] [address] [place] [address] Rocky Rodriguez MD Back Pain 02/28/2024 Travel 02/28/2024 Nurse Triage [facility] Centralized Nurse Triage Pcp, No Back Pain from Last 3 Months Immunizations Immunization Administration Dates Next Due Hepatitis B (Adult) 12/06/1998,11/04/1998 Td (Age >=7 Years) 11/04/1998 Tdap 08/11/2011,04/29/2009 Social History Tobacco Use Types Packs/Day Years Used Date Smoking Tobacco: Never Smokeless Tobacco: Never Alcohol Use Standard Drinks/Week Comments No 0 (1 standard drink = 0.6 oz pur e alcohol) Social Connections Answer Date Recorded Do you often feel lonely or isolated from those around you? 0 05/06/2023 Financial Resource Strain Answer Date R ecorded Difficulty of Paying Living Expenses 3 03/22/2024 Difficulty of Paying Living Expenses Not on file 03/22/2024 Food Insecurity Answer Date Recorded Do you worry your food will run out before you are able to buy more? 1 05/06/2023 Transportation Needs Answer Date Record ed Does lack of transportation keep you from medica l appointments? 1 05/06/2023 Does lack of transportation keep you from work, meetings or getting things that you need? 1 05/06/2023 Housing Stability Answer Date Recorded What is your housing situation today? 1 05/06/2023 Interpersonal Safety Answer Date Record ed Are you being hit, kicked, p ushed or yelled at (see row info)? No 10/02/2023 Interpersonal Safety Abuse 12 - 18 Not on file 10/02/2023 Interpersonal Safety Ambulatory Vulnerability No t on file 10/02/2023 Utilities Answer Date Recorded Do you have trouble paying f or utilities (for example, heat, electricity, water, phone)? 1 05/06/2023 Comments No Sex and Gender Information Value Date Recorded Sex Assigned at Not on file Legal Sex Female 8:25 AM PROP ATTENDANT Gender Identity Not on file Sexual Orientation Not on file Obstetrics History Para Term AB IAB SAB Ectopic Multiple Livin g Live Births 2 1 1 Date Outcome GA Total Labor Labor/2nd/3rd Weight Sex Type Anes PTL Blanca A1 A5 Name Clin Comments:System Genera kade. Please review and update details. 0 IAB 8w0 d Last Filed Vital Signs Vital Sign Reading Time Taken Comments Blood Pressure 123/81 02/28/2024 2:09 PM PROP ATTENDANT Pulse 84 02/28/2024 2:09 PM PROP ATTENDANT Temperature 36.7 C (98 F) 02/28/2024 2:09 PM PROP ATTENDANT Respiratory Rate 18 12/30/2023 12:50 PM PROP ATTENDANT Oxygen Saturation 96% 02/28/2024 2:09 PM PROP ATTENDANT Inhaled Oxygen Concentration - - Weight 117.5 kg (259 lb) 02/28/2024 2:09 PM PROP ATTENDANT Height 175.3 cm (5' 9) 10/02/2023 6:52 PM CDT Body Mass Index 38.25 10/02/2023 6:52 PM CDT Plan of Treatment Health Maintenance Due Date Last Done Comments Depression screening for age 12+ 1986 HIV for age 15-65 1989 Hepatitis C screening for age 18-79 01/30/1992 Pap test for age 21-65 1995 Colonoscopy through age 75 2019 Lipids for age 45-75 2019 Mammogram for age 45-75 2019 Tetanus booster 08/10/2021 08/11/2011, 04/19, 11/04/1998 BMI (ht and wt on same day) for age 18+ 09/26/2022 09/26/2021, 06/18/2018, 06/04/2017 COVID-19 vaccine series (2 - season) 2023 06/02/2020 (IA) Influenza for age 50-64 01/30/2024 Pneumococcal series for age 50+ (1 of 1 - PCV) 01/30/2024 Zoster (shingles) series for age 50+ (1 of 2) 01/30/2024 Tdap Completed 08/11/2011, 04/29/2009 Procedures Procedure Name Priority Date/Time Associated Diagnosis Comments URINE CULTURE Routine 02/28/2024 2:19 PM PROP ATTENDANT Flank pain UA W/ SEDIMENT EXAM REFLEXED PER CRITERIA STAT 02/28/2024 2:19 PM PROP ATTENDANT Flank pain from Last 3 Months Results * URINE CULTURE [16187.2] (02/28/2024 2:19 PM PROP ATTENDANT) CULTURE 50,000-100,000 CFU/mL of multiple organisms, probable contaminants 02/29/2024 8:16 PM PROP ATTENDANT [facility] Urine URINE SPECIMEN / Unknown Non-Blood / Unknown 02/28/2024 2:19 PM PROP ATTENDANT 02/28/2024 2:19 PM PROP ATTENDANT us Rocky Rodriguez MD MICROBIOLOGY Final Result [facility] [address] [place] [address], [place] * UA W/ SEDIMENT EXAM REFLEXED PER CRITERIA [30457.2] (02/28/2024 2:19 PM PROP ATTENDANT) COLOR YELLOW YELLOW [facility] (U APPEARANCE CLEAR CLEAR [facility] (U SPECIFIC GRAVITY 1.020 1.001 - 1.035 [facility] (U PH 6.5 5.0 - 8.0 [facility] (U GLUCOSE NEGATIVE NEGATIVE [facility] (U BILIRUBIN NEGATIVE NEGATIVE [facility] (U KETONES NEGATIVE NEGATIVE [facility] (U OCCULT BLOOD NEGATIVE NEGATIVE [facility] ([facility] PROTEIN NEGATIVE NEGATIVE [facility] (U NITRITE NEGATIVE NEGATIVE [facility] (U LEUKOCYTE ESTERASE NEGATIVE NEGATIVE [facility] (U Urine URINE SPECIMEN / Unknown 02/28/2024 2:19 PM PROP ATTENDANT 02/28/2024 2:20 PM PROP ATTENDANT Rocky Rodriguez MD URINE Final Result [facility] [address] [place] [address], [facility] (U [address] [place] [address] from Last 3 Months Insurance [facility] Advance Directives * Full Code (Latest Code Status on File) Date Activated Date Inactivated Comments 08/08/2011 5:17 PM 08/09/2011 2:34 PM * Full Code Date Activated Date Inactivated Comments 08/08/2011 4:57 PM 08/08/2011 5:17 PM * Full Code Date Activated Date Inactivated Comments 07/27/2011 12:18 PM 07/27/2011 6:13 PM Care Teams Custodial Services Manager Relationship Specialty Start Date End Date Pcp, No . PCP - General 06/29/23
--- OUTSIDE RECORDS SUMMARY | 2024-04-26 11:42 | XMS_ITS | Encounter Summary ---
Author Organization [place] Address [address] [place] [address] Care Team Providers Care Hook And Eye Attacher Name Role Phone Corine Bullard PA-C Primary Care Provider + [phone] Corine Bullard PA-C Unavailable +[phone] Tiffany Dinero MD Unavailable + Juliocesar June MD Primary Care Provider [phone] Tiffany Dinero MD Unavailable + Tiffany Dinero MD Unavailable + [place] Rangel MD Unavailable +[phone] Encounter Details Date Type Department Care Team (Late st Contact Info) Description 11/04/2020 Documentation Only INTERFACED REPORT Unknown, Provider Social History Tobacco Use Types Packs/Day Years Used Date Smoking Tobacco: Never Smokeless Tobacco: Never Alcohol Use Standard Drinks/Week Comments No 0 (1 standard drink = 0.6 oz pur e alcohol) PHQ-2 Answer Date Recorded PHQ-2 Score 0 06/23/2020 Comments No Sex and Gender Information Value Date Recorded Sex Assigned at Female 05/15/2020 4:50 PM CDT Legal Sex Female 4:19 AM FENCE INSTALLER FOREMAN Gender Identity Female 05/15/2020 4:50 PM CDT Sexual Orientation Straight 05/15/2020 4: 50 PM CDT COVID-19 Exposure Response Date Recorded In the last month, have you been in contact with someone who was confirmed or suspected to have Coronavirus / COVID-19? No / Unsure 11/04/2020 4:52 PM CDT documented as of this encounter Plan of Treatment Not on file documented as of this encounter Visit Diagnoses Not on filedocumented in this encounter Additional Health Concerns Infection Onset Date Last Indicated Resolved Time Rule Out COVID-19 06/14/2021 06/14/2021 06/14/2021 10:34 PM CDT Rule Out COVID-19 11/15/2022 11/15/2022 11/15/2022 6:00 PM CDT Rule Out COVID-19 01/16/2023 01/16/2023 01/16/2023 5:19 PM FENCE INSTALLER FOREMAN Rule Out COVID-19 02/14/2023 02/14/2023 02/14/2023 6:41 PM FENCE INSTALLER FOREMAN Rule Out COVID-19 02/27/2023 02/27/2023 02/28/2023 12:40 AM FENCE INSTALLER FOREMAN COVID-19 02/27/2023 02/27/2023 03/20/2023 11:3 9 PM FENCE INSTALLER FOREMAN Rule Out COVID-19 08/22/2023 08/22/2023 08/22/2023 1:50 PM CDT Assessment Noted Time PHQ-9 Depression Total Score: 3 06/12/19 21 7:03 AM CDT documented as of this encounter Care Teams Hook And Eye Attacher Relationship Specialty Start Date End Date Corine Bullard PA-C PCP - General Physician Program Management Intern 10/08/14 11/14/22 Juliocesar June MD [address] [place] [id number] PCP - General Internal Medicine 11/15/22 Corine Bullard PA-C Assigned PCP 07/29/17 08/11/23 Tiffany Dinero MD [address] [place] [address] [place] [address] Assigned OBGYN Provider 09/24/21 4 Tiffany Dinero MD [address] [facility] [address] [place] [address] oim consultant 08/13/23 Tiffany Dinero MD [address] [facility] [address] [place] [address] Assigned OBGYN Provider 09/11/23 [place] Rangel MD [address] [facility] [address] [place] [address] Assigned PCP 02/11/24 documented as of this encounter
--- OUTSIDE RECORDS SUMMARY | 2024-04-26 11:42 | XMS_ITS | Encounter Summary ---
Author Organization [facility] Address [address] [place] [address] Care Team Providers Care Lead Vulcanizing Operator Name Role Phone Corine Bullard PA-C Primary Care Provider + [phone] Corine Bullard PA-C Unavailable +[phone] Tiffany Dinero MD Unavailable + Juliocesar June MD Primary Care Provider +[phone]- [phone] Tiffany Dinero MD Unavailable + Tiffany Dinero MD Unavailable + [place] Rangel MD Unavailable +[phone] Encounter Details Date Type Department Care Team (Late st Contact Info) Description 06/15/2021 [facility] Medical Advice [address] [address] Chel Santoyo, [facility] Social History Tobacco Use Types Packs/Day Years Used Date Smoking Tobacco: Never Smokeless Tobacco: Never Alcohol Use Standard Drinks/Week Comments No 0 (1 standard drink = 0.6 oz pur e alcohol) PHQ-2 Answer Date Recorded PHQ-2 Score 0 06/23/2020 Comments No Sex and Gender Information Value Date Recorded Sex Assigned at Female 05/15/2020 4:50 PM CDT Legal Sex Female 4:19 AM DIRECTOR HEART Gender Identity Female 05/15/2020 4:50 PM CDT Sexual Orientation Straight 05/15/2020 4: 50 PM CDT COVID-19 Exposure Response Date Recorded In the last 10 days, have yo u been in contact with someone who was confirmed or suspected to have Coronavirus/COVID-19? No / Unsure 06/14/2021 8:44 PM CDT documented as of this encounter Plan of Treatment Not on file documented as of this encounter Visit Diagnoses Not on filedocumented in this encounter Additional Health Concerns Infection Onset Date Last Indicated Resolved Time Rule Out COVID-19 11/15/2022 11/15/2022 11/15/2022 6:00 PM CDT Rule Out COVID-19 01/16/2023 01/16/2023 01/16/2023 5:19 PM DIRECTOR HEART Rule Out COVID-19 02/14/2023 02/14/2023 02/14/2023 6:41 PM DIRECTOR HEART Rule Out COVID-19 02/27/2023 02/27/2023 02/28/2023 12:40 AM DIRECTOR HEART COVID-19 02/27/2023 02/27/2023 03/20/2023 11:3 9 PM DIRECTOR HEART Rule Out COVID-19 08/22/2023 08/22/2023 08/22/2023 1:50 PM CDT Assessment Noted Time PHQ-9 Depression Total Score: 3 06/12/19 21 7:03 AM CDT documented as of this encounter Care Teams Lead Vulcanizing Operator Relationship Specialty Start Date End Date Corine Bullard PA-C PCP - General Physician Traffic Checker 10/08/14 11/14/22 Juliocesar June MD [address] [place] [address] PCP - General Internal Medicine 11/15/22 Corine Bullard PA-C Assigned PCP 07/29/17 08/11/23 Tiffany Dinero MD [address] [place] [address] [place] [address] Assigned OBGYN Provider 09/24/21 4 Tiffany Dinero MD [address] [facility] [address] [place] [address] regional planner 08/13/23 Tiffany Dinero MD [address] [facility] [address] [place] [address] Assigned OBGYN Provider 09/11/23 [place] Rangel MD [address] [id number] Assigned PCP 02/11/24 documented as of this encounter
--- OUTSIDE RECORDS SUMMARY | 2024-04-26 11:42 | XMS_ITS | Encounter Summary ---
Author Organization [place] Address [address] [place] [address]. [place] [address] Care Team Providers Care Management Lecturer Name Role Phone Corine Bullard PA-C Primary Care Provider + [phone] Corine Bullard PA-C Unavailable +[phone] Mery Reyna RN Unavailable Unavailable Tiffany Dinero MD Unavailable + Juliocesar June MD Primary Care Provider [phone] Tiffany Dinero MD Unavailable + Tiffany Dinero MD Unavailable + [place] Rangel MD Unavailable +[phone] Encounter Details Date Type Department Care Team (Late st Contact Info) Description 05/09/2020 [facility] Medical Advice [address] [address] Corine Bullard PA-C [address] [facility] [address] [place], [place] [id number] Social History Tobacco Use Types Packs/Day Years Used Date Smoking Tobacco: Never Smokeless Tobacco: Never Alcohol Use Standard Drinks/Week Comments No 0 (1 standard drink = 0.6 oz pur e alcohol) PHQ-2 Answer Date Recorded PHQ-2 Score 0 02/27/2018 Comments No Sex and Gender Information Value Date Recorded Sex Assigned at Female 05/15/2020 4:50 PM CDT Legal Sex Female 4:19 AM DRUM CLEANER Gender Identity Female 05/15/2020 4:50 PM CDT Sexual Orientation Straight 05/15/2020 4: 50 PM CDT COVID-19 Exposure Response Date Recorded In the last month, have you been in contact with someone who was confirmed or suspected to have Coronavirus / COVID-19? No / Unsure 04/10/2020 12:07 PM DRUM CLEANER documented as of this encounter Plan of Treatment Not on file documented as of this encounter Visit Diagnoses Not on filedocumented in this encounter Additional Health Concerns Infection Onset Date Last Indicated Resolved Time Rule Out COVID-19 06/14/2021 06/14/2021 06/14/2021 10:34 PM CDT Rule Out COVID-19 11/15/2022 11/15/2022 11/15/2022 6:00 PM CDT Rule Out COVID-19 01/16/2023 01/16/2023 01/16/2023 5:19 PM DRUM CLEANER Rule Out COVID-19 02/14/2023 02/14/2023 02/14/2023 6:41 PM DRUM CLEANER Rule Out COVID-19 02/27/2023 02/27/2023 02/28/2023 12:40 AM DRUM CLEANER COVID-19 02/27/2023 02/27/2023 03/20/2023 11:3 9 PM DRUM CLEANER Rule Out COVID-19 08/22/2023 08/22/2023 08/22/2023 1:50 PM CDT Assessment Noted Time PHQ-9 Depression Total Score: 2 01/26/20 19 8:04 AM DRUM CLEANER documented as of this encounter Care Teams Management Lecturer Relationship Specialty Start Date End Date Corine Bullard PA-C PCP - General Physician Pharm Spec 10/08/14 11/14/22 Juliocesar June MD [address] [facility] [address] [place] [address] PCP - General Internal Medicine 11/15/22 Corine Bullard PA-C Assigned PCP 07/29/17 08/11/23 Mery Reyna, RN Personal Advocate & Liaison (PAL) Nurse 05/24/20 06/28/20 Tiffany Dinero MD [address] [facility] [address] [place] [phone] Assigned OBGYN Provider 09/24/21 4 Tiffany Dinero MD [address] [facility] [address] [place] [address] garage hand 08/13/23 Tiffany Dinero MD [address] [facility] [address] [place] [address] Assigned OBGYN Provider 09/11/23 Indiana Rangel MD [address] [facility] [address] [place] [address] Assigned PCP 02/11/24 documented as of this encounter
--- OUTSIDE RECORDS SUMMARY | 2024-04-26 11:42 | XMS_ITS | Encounter Summary ---
Author Organization [facility] [place] Address [address] [place] [address] Care Team Providers Care Personal Injury Litigation Paralegal Name Role Phone Corine Bullard PA-C Primary Care Provider + [phone] Corine Bullard PA-C Unavailable [phone] Mery Reyna RN Unavailable Unavailable Tiffany Dinero MD Unavailable + Juliocesar June MD Primary Care Provider [phone] Tiffany Dinero MD Unavailable + Tiffany Dinero MD Unavailable + [place] Rangel MD Unavailable +[phone] Encounter Details Date Type Department Care Team (Late st Contact Info) Description 06/03/2020 Documentation Only INTERFACED REPORT Unknown, Provider Social [...] PM CDT Legal Sex Female 4:19 AM PLANT PACKER Gender Identity Female 05/15/2020 4:50 PM CDT Sexual Orientation Straight 05/15/2020 4: 50 PM CDT COVID-19 Exposure Response Date Recorded In the last month, have you been in contact with someone who was confirmed or suspected to have Coronavirus / COVID-19? No / Unsure 05/21/2020 11:50 AM CDT documented as of this encounter Plan of Treatment Not on file documented as of this encounter Visit Diagnoses Not on filedocumented in this encounter Additional Health Concerns Infection Onset Date Last Indicated Resolved Time Rule Out COVID-19 06/14/2021 06/14/2021 06/14/2021 10:34 PM CDT Rule Out COVID-19 11/15/2022 11/15/2022 11/15/2022 6:00 PM CDT Rule Out COVID-19 01/16/2023 01/16/2023 01/16/2023 5:19 PM PLANT PACKER Rule Out COVID-19 02/14/2023 02/14/2023 02/14/2023 6:41 PM PLANT PACKER Rule Out COVID-19 02/27/2023 02/27/2023 02/28/2023 12:40 AM PLANT PACKER COVID-19 02/27/2023 02/27/2023 03/20/2023 11:3 9 PM PLANT PACKER Rule Out COVID-19 08/22/2023 08/22/2023 08/22/2023 1:50 PM CDT Assessment Noted Time PHQ-9 Depression Total Score: 2 01/26/20 19 8:04 AM PLANT PACKER documented as of this encounter Care Teams Personal Injury Litigation Paralegal Relationship Specialty Start Date End Date Corine Bullard PA-C PCP - General Physician Compounding Scaler 10/08/14 11/14/22 Juliocesar June MD [address] [place] [address] PCP - General Internal Medicine 11/15/22 Corine Bullard PA-C Assigned PCP 07/29/17 08/11/23 Mery Reyna, BRY Personal Advocate & Liaison (PAL) Nurse 05/24/20 06/28/20 Tiffany Dinero MD [address] [facility] [address] [place] [address] Assigned OBGYN Provider 09/24/21 4 Tiffany Dinero MD [address] [facility] [address] [place] [address] glove machine operator 08/13/23 Tiffany Dinero MD [address] [facility] [address] [place] [address] Assigned OBGYN Provider 09/11/23 Indiana Rangel MD [address] [facility] [address] [place] [address] Assigned PCP 02/11/24 documented as of this encounter
--- OUTSIDE RECORDS SUMMARY | 2024-04-26 11:42 | XMS_ITS | Clinical Summary ---
Author Organization [facility] Address [address] [place] [address] Care Team Providers Care Atmospheric Drier Tender Name Role Phone Juliocesar June MD Primary Care Provider [phone] Tiffany Dinero MD Unavailable + Tiffany Dinero MD Unavailable + [place] Rangel MD Unavailable [phone] Allergies Active Allergy Reactions Criticality Noted Date Comments Ciprofloxacin 11/20/2022 Other Reaction(s): Headache, Joint/tendon pain Piperacillin Sod-Tazobactam So Hives 11/17/2017 Pt became very anxious and had a couple of hives. Piperacillin-Tazobactam In Dex Hives 11/17/2017 Pt became very anxious and had a couple of hives. Shrimp Medium 11/20/2022 Other Reaction(s): Itchy throat. Medications folic acid (FOLVITE) 1 MG tablet Take 1 mg by mouth daily 06/01/2021 Active levothyroxine (SYNTHROID/LEVOT HROID) 88 MCG tablet Take 88 mcg by mouth daily 04/06/2023 Active cyanocobalamin (CYANOCOBALAMIN) 1000 MCG/ML injection Inject 1 mL into the muscle once a week on Sunday08/12/2022 Active cholecalciferol (VITAMIN D3) 1250 mcg (88836 units) capsule Take 1,250 mcg by mouth every 7 days on Sunday. Active ferrous sulfate (FE TABS) 325 (65 Fe) MG EC tablet Take 325 mg by mouth daily Active zinc gluconate 30 MG TABS Take 30 mg by mouth daily Active CALCIUM-VITAMIN D PO Take 1 tablet by mouth daily Active Menatetrenone (VITAMIN K2) 100 MCG TABS 08/11/2022 Active Active Problems Problem Noted Date Diagnosed Date Chest pain, unspecified type 04/11/2023 ASCUS of cervix with negative high risk HPV 08/0 03/2021 Overview (09/26/2021): 2011 NIL pap [gap in records] 09/20/21 ASCUS pap, neg HR HPV. Plan 3 year cotest Morbid obesity 06/10/2020 Fever 11/17/2017 Nasal polyp 07/25/2017 Onychomycosis of toenail 07/25/2017 Endometritis following delivery 08/16/2011 Retained products of conception, 07/21 Abnormal findings on screening 012 Advanced maternal age in 06/16/2011 Monochorionic diamniotic twin gestation 06/16/19 12 Hypothyroidism 09/28/2010 Seasonal allergic rhinitis 07/22/2010 Recurrent sinus infections 07/22/2010 CARDIOVASCULAR SCREENING; LDL GOAL LESS THAN 160 12/19/2009 Chest pain 08/11/2005 Overview (11/19/2014): Problem list name updated by automated process. Provider to review Anxiety state 08/11/2005 Overview (11/19/2014): Problem list name updated by automated process. Provider to review Encounters Date Type Department Care Team Description 01/28/2024 10:30 AM FIRE PROTECTION DESIGNER Office Visit [address] [address] Chely Henderson, PAJacquelineC Acute recurrent maxillary sinusitis (Primary Dx); Acute bacterial conjunctivitis of both eyes 01/28/2024 Travel from Last 3 Months Immunizations Name Administration Dates Next Due COVID-19 MONOVALENT 12+ (Pfizer) 06/02/2020 Hepatitis B, Adult 12/06/1998,11/04/1998 TDAP Vaccine (Adacel) 08/11/2011,04/29/2009 Td (Adult), Adsorbed 11/04/1998 Family History Medical History Relation Comments Unknown/Adopted Father Cancer Maternal Grandmother lung Hypertension Maternal Grandmother Respiratory Mother COPD and smokes Unknown/Adopted Paternal Grandfather Unknown/Adopted Paternal Grandmother Cerebrovascular Disease Sister stroke 2 023 Relation Status Comments Father Other Maternal Grandfather Alive Maternal Grandmother Mother Paternal Grandfather Other Paternal Grandmother Other Sister Social History Tobacco Use Types Packs/Day Years Used Date Smoking Tobacco: Never Smokeless Tobacco: Never Tobacco Cessation:Counseling Given: Not Answered Alcohol Use Standard Drinks/Week Comments No 0 (1 standard drink = 0.6 oz pur e alcohol) PHQ-2 Answer Date Recorded PHQ-2 Score 0 10/11/2023 Adolescent Education Answer Date Record ed Getting School Help Needed Not on file 11/11 Comments No Sex and Gender Information Value Date Recorded Sex Assigned at Female 05/15/2020 4:50 PM CDT Legal Sex Female 4:19 AM FIRE PROTECTION DESIGNER Gender Identity Female 05/15/2020 4:50 PM CDT Sexual Orientation Straight 05/15/2020 4: 50 PM CDT Last Filed Vital Signs Vital Sign Reading Time Taken Comments Blood Pressure 119/80 01/28/2024 10:15 AM FIRE PROTECTION DESIGNER Pulse 78 01/28/2024 10:15 AM FIRE PROTECTION DESIGNER Temperature 36.3 C (97.4 F) 01/28/2024 10:15 AM FIRE PROTECTION DESIGNER Respiratory Rate 15 01/28/2024 10:15 AM FIRE PROTECTION DESIGNER Oxygen Saturation 95% 01/28/2024 10:15 AM FIRE PROTECTION DESIGNER Inhaled Oxygen Concentration - - Weight 115.2 kg (254 lb) 01/28/2024 10:15 AM FIRE PROTECTION DESIGNER Height 165.1 cm (5' 5) 01/28/2024 10:15 AM FIRE PROTECTION DESIGNER Body Mass Index 42.27 01/28/2024 10:15 AM FIRE PROTECTION DESIGNER Plan of Treatment Health Maintenance Due Date Last Done Comments ADVANCE CARE PLANNING 1974 CT COLONOGRAPHY 1974 FIT 1974 FLEX SIG 1974 sDNA (Cologuard) 1974 HEPATITIS B IMMUNIZATION (3 of 3 - 19+ 3-dose series) 05/05/1999 12/06/1998, 11/04/1998 DTAP/TDAP/TD IMMUNIZATION (4 - Td or Tdap) 08/10/2021 08/11/2011, 04/29/2009, 11/04/1998 YEARLY PREVENTIVE VISIT 09/20/2022 09/20/2021, 03/21 COVID-19 Vaccine (2 - season) 2023 06/02/2020 INFLUENZA VACCINE (#1) 2023 Pneumococcal Vaccine: 50+ Years (1 of 1 - PCV) 01/30/2024 ZOSTER IMMUNIZATION (1 of 2) 01/30/2024 PHQ-2 (once per calendar year) 2024 10/11/2023, 08/30/2023, 08/20/2023, Additional history exists TSH W/FREE T4 REFLEX 08/21/2024 08/22/2023, 01/16/2023, 05/20/2020, Additional history exists HPV FOLLOW-UP 09/20/2024 09/20/2021 PAP FOLLOW-UP 09/20/2024 09/20/2021, 02/23/2011 ANNUAL REVIEW OF HM ORDERS 01/22/2025 01/23/2024, MAMMO SCREENING 04/22/2025 04/23/2023, 06/0 09/2021, 12/15/2019, Additional history exists LIPID 05/20/2025 05/20/2020, 03/21/2013 GLUCOSE 08/28/2026 08/29/2023, 07/0 04/2023, 07/06/2023, Additional history exists COLONOSCOPY 04/16/2033 04/16/2023 COLORECTAL CANCER SCREENING 04/16/2033 HEPATITIS C SCREENING Completed 05/20/2020 HIV SCREENING Completed 05/20/2020 PAP Discontinued 09/20/2021, 02/23/2011 HPV IMMUNIZATION Aged Out No longer e ligible based on patient's age to complete this topic MENINGITIS IMMUNIZATION Aged Out No l onger eligible based on patient's age to complete this topic Procedures Procedure Name Priority Date/Time Associated Diagnosis Comments COMPREHENSIVE METABOLIC PANEL STAT 08/29/2023 8:50 PM CDT TSH WITH FREE T4 REFLEX STAT 08/22/2023 12:29 PM CDT MA SCREENING BILATERAL W/ RANJIT Routine 04/23/2023 3:04 PM FIRE PROTECTION DESIGNER Encounter for screening mammogram for malignant neoplasm of breast COLONOSCOPY - HIM SCAN Routine 04/16/2023 HPV HIGH RISK TYPES DNA CERVICAL Routine 09/20/2021 11:34 AM CDT Screening for cervical cancer GYNECOLOGIC CYTOLOGY Routine 09/20/2021 11:34 AM CDT Screening for cervical cancer HIV ANTIGEN ANTIBODY COMBO Routine 05/20/2020 1:29 PM CDT Screening for HIV (human immunodeficiency virus) Need for hepatitis C screening test Screening for hyperlipidemia HEPATITIS C SCREEN REFLEX TO HCV RNA QUANT AND GENOTYPE Routine 05/20/2020 1:29 PM CDT Screening for HIV (human immunodeficiency virus) Need for hepatitis C screening test Screening for hyperlipidemia LIPID REFLEX TO DIRECT LDL PANEL Routine 05/20/2020 1:29 PM CDT Screening for HIV (human immunodeficiency virus) Need for hepatitis C screening test Screening for hyperlipidemia from Last 3 Months or Most Recently Relevant to Health Maintenance Results * (ABNORMAL) Comprehensive metabolic panel (08/29/2023 8:50 PM CDT) Sodium 139 135 - 145 mmol/L 08/29/2023 9:15 PM CDT [facility] Potassium 4.1 3.4 - 5.3 mmol/L 08/29/2023 9:15 PM CDT [facility] Carbon Dioxide (CO2) 24 22 - 29 mmol/L 08/29/2023 9:15 PM CDT [facility] Anion Gap 12 7 - 15 mmol/L 08/29/2023 9:15 PM CDT [facility] Urea Nitrogen 11.7 6.0 - 20.0 mg/dL 08/29/2023 9:15 PM CDT [facility] Creatinine 1.16(H) 0.51 - 0.95 mg/dL 08/29/2023 9:15 PM CDT [facility] GFR Estimate 58(L) >60 mL/min/1. 73m2 08/29/2023 9:15 PM CDT [facility] Comment:eGFR calculated usin 2020 CKD-EPI equation. Calcium 9.4 8.6 - 10.0 mg/dL 08/29/2023 9:15 PM CDT [facility] Chloride 103 98 - 107 mmol/L 08/29/2023 9:15 PM CDT [facility] Glucose 91 70 - 99 mg/dL 08/29/2023 9:15 PM CDT [facility] Alkaline Phosphatase 91 40 - 150 U/L 08/29/2023 9:15 PM CDT [facility] AST 20 0 - 45 U/L 08/29/2023 9:15 PM CDT [facility] Comment:Reference intervals for this test were updated on 07/31/2022 to more accurately reflect our healthy population. There may be differences in the flagging of prior results with similar values performed with this method. Interpretation of those prior results can be made in the context of the updated reference intervals. ALT 14 0 - 50 U/L 08/29/2023 9:15 PM CDT [facility] Comment:Reference intervals for this test were updated on 07/31/2022 to more accurately reflect our healthy population. There may be differences in the flagging of prior results with similar values performed with this method. Interpretation of those prior results can be made in the context of the updated reference intervals. Protein Total 7.5 6.4 - 8.3 g/dL 08/29/2023 9:15 PM CDT [facility] Albumin 4.1 3.5 - 5.2 g/dL 08/29/2023 9:15 PM CDT [facility] Bilirubin Total 0.7 <=1.2 mg/dL 08/29/2023 9:15 PM CDT [facility] Blood BLOOD SPECIMEN / Unknown Venipuncture / Unknown 08/29/2023 8:50 PM CDT 08/29/2023 8:56 PM CDT us Umu Gallegos MD LAB - BLOOD ORDERABLES Final Res ult LABORATORY [facility] [address] [facility] Lab (1st floor, no room number) [place] [address], [facility] * TSH with free T4 reflex (08/22/2023 12:29 PM CDT) TSH 3.71 0.30 - 4.20 uIU/mL 08/22/2023 1:13 PM CDT LABORATORY Blood BLOOD SPECIMEN / Unknown Venipuncture / Unknown 08/22/2023 12:29 PM CDT 08/22/2023 12:40 PM CDT us Umu Gallegos MD LAB - BLOOD ORDERABLES Final Res ult LABORATORY [facility] [address] Lab (1st floor, no room number) [place] [address] * MA Screen Bilateral w/Ranjit (04/23/2023 3:04 PM FIRE PROTECTION DESIGNER) Anatomical Region Laterality Modality Breast Bilateral Mammography Impressions 04/23/2023 3:21 PM FIRE PROTECTION DESIGNER IMPRESSION: ACR BI-RADS Category 1: Negative BREAST CANCER SCREENING RECOMMENDATION: Routine yearly mammography beginning at age 40 or as discussed with your provider. The results and recommendations of this examination will be communicated to the patient. Blue Kosta Sylvia Narrative 04/23/2023 3:21 PM FIRE PROTECTION DESIGNER BILATERAL FULL FIELD DIGITAL SCREENING MAMMOGRAM WITH TOMOSYNTHESIS Performed on: 04/23/23 Compared to: 07/27/2021 and 12/15/2019 Technique: This study was evaluated with the assistance of Computer-Aided Detection. Breast Tomosynthesis was used in interpretation. Findings: The breasts have scattered areas of fibroglandular density. There is no radiographic evidence of malignancy. us Juliocesar June MD IMG MAMMOGRAPHY ORDERABLES Final Result * Colonoscopy - HIM Scan (04/16/2023) Narrative Ladan Liu - 04/16/2023 See encounter dated - 01/23/2024 us Patient Reported PROCEDURES Final Result * (ABNORMAL) Pap thin layer screen with HPV - recommended age 30 - 65 years (09/20/2021 11:34 AM CDT) Interpretation Atypical squamous cells of undetermined significance (ASC-US)(A) 09/22/2021 5:27 PM CDT [facility] Comment Papanicolaou Test Limitations: Cervical cytology is a screening test with limited sensitivity, and regular screening is critical for cancer prevention. Pap tests are primarily effective for the diagnosis/preven tion of squamous cell carcinoma, not adenocarcinoma or other cancers. 09/22/2021 5:27 PM CDT [facility] Specimen Adequacy Satisfactory for evaluation, endocervical/tra nsformation zone component present 09/22/2021 5:27 PM CDT [facility] Clinical Information none 09/22/2021 5:27 PM CDT [facility] Reflex Testing Yes regardless of result 09/22/2021 5:27 PM CDT [facility] Previous Abnormal? No 09/22/2021 5:27 PM CDT [facility] Performing Labs The technical component of this testing was completed at [facility] 09/22/2021 5:27 PM CDT [facility] Brushing CERVIX UTERI STRUCTURE / Unknown Non-blood Collection / Unknown 09/20/2021 11:34 AM CDT 09/20/2021 12:10 PM CDT Tiffany [place] [facility] Result [facility] Specialty Lab [address] [facility], [address] [address], [facility] [phone] * HPV High Risk Types DNA Cervical (09/20/2021 11:34 AM CDT) Other HR HPV Negative Negative 09/26/2021 2:33 PM CDT [facility] HPV16 DNA Negative Negative 09/26/2021 2:33 PM CDT [facility] HPV18 DNA Negative Negative 09/26/2021 2:33 PM CDT [facility] FINAL DIAGNOSIS This patient's sample is negative for HPV DNA. This test was developed and its performance characteristics determined by the [facility], Molecular Diagnostics Laboratory. It has not been cleared or approved by the FDA. The laboratory is regulated under CLIA as qualified to perform high-complexity testing. This test is used for clinical purposes. It should not be regarded as investigational or for research. METHODOLOGY: The Nick Trent 4800 system uses automated extraction, simultaneous amplification of HPV (L1 region) and beta-globin, followed by real time detection of fluorescent labeled HPV and beta globin using specific oligonucleotide probes. The test specifically identified types HPV 16 DNA and HPV 18 DNA while concurrently detecting the rest of the high risk types (31, 33, 35, 39, 45, 51, 52, 56, 58, 59, 66 or 68). COMMENTS: This test is not intended for use as a screening device for woman under age 30 with normal cervical cytology. Results should be correlated with cytologic and histologic findings. Close clinical followup is recommended. 09/26/2021 2:33 PM CDT [facility] Brushing CERVIX UTERI STRUCTURE / Unknown Non-blood Collection / Unknown 09/20/2021 11:34 AM CDT 09/23/2021 9:57 AM CDT Tiffany Dinero MD LAB - BLOOD ORDERA BLES Final Result [facility] Molecular Diagnostics [address] [facility], [address] [address], [facility] [phone] * HIV Antigen Antibody Combo (05/20/2020 1:29 PM CDT) HIV Antigen Antibody Combo Nonreactive NR^Nonrea ctive 05/21/2020 11:[address] [facility] Comment:HIV-1 p24 Ag & HIV-1 /HIV-2 Ab Not Detected Blood 05/20/2020 1:29 PM CDT 05/20/2020 1:30 PM CDT Corine Bullard PA-C LAB - BLOOD ORDERABLES Fin al Result [facility] [address] [place] [address] * Hepatitis C Screen Reflex to HCV RNA Quant and Genotype (05/20/2020 1:29 PM CDT) Hepatitis C Antibody Nonreactive NR^Nonre active 05/20/2020 7:[address] [facility] Comment: Assay performance characteristics have not been established for newborns, infants, and children Blood 05/20/2020 1:29 PM CDT 05/20/2020 1:30 PM CDT Corine Bullard PA-C LAB - BLOOD ORDERABLES Fin al Result [facility] [address] [place] [address] * (ABNORMAL) Lipid panel reflex to direct LDL Fasting (05/20/2020 1:29 PM CDT) Cholesterol 164 <200 mg/dL 05/20/2020 6:02 PM CDT [facility] Triglycerides 176(H) <150 mg/dL 05/20/2020 5:59 PM CDT [facility] Comment: Borderline high: 150-199 mg/dl High: 200-499 mg/dl Very high: >499 mg/dl Non Fasting HDL Cholesterol 39(L) >49 mg/dL 6:03 PM CDT [facility] LDL Cholesterol Calculated 90 <100 mg/dL 05/20/2020 6:03 PM CDT [facility] Comment:Desirable: <100 mg/d l Non HDL Cholesterol 125 <130 mg/dL 05/20/2020 6:03 PM CDT [facility] Blood 05/20/2020 1:29 PM CDT 05/20/2020 1:30 PM CDT Corine Bullard PA-C LAB - BLOOD ORDERABLES Dago al Result Performing Organization Address City/[facility]/ZIP Co de Phone Number [facility] [address] [place] [address], [facility] [phone] from Last 3 Months or Most Recently Relevant to Health Maintenance [place]ives For more information, please contact: [phone] * Full Code (Latest Code Status on File) Date Activated Date Inactivated Comments 04/12/2023 11:17 AM 07/06/2023 4:46 PM Question Answer Comments Code status determined by: Discussion with patie nt/ legal decision maker * Full Code Date Activated Date Inactivated Comments 04/11/2023 9:54 PM 04/12/2023 11:17 AM All basic a nd advanced life-sustaining interventions are performed as appropriate Question Answer Comments Code status determined by: Unable to dis cuss and no AD/POLST on file; continue PREVIOUSLY ORDERED code status * Full Code Date Activated Date Inactivated Comments 11/17/2017 3:53 AM 11/21/2017 1:04 PM Question Answer Comments Code status determined by: Discussion with melisa nt/legal decision maker Care Teams Atmospheric Drier Tender Relationship Specialty Start Date End Date Juliocesar June MD [address] [place], [place] [address] PCP - General Internal Medicine 11/15/22 Tiffany Dinero MD [address] [place] [address] heel painter 08/13/23 Tiffany Dinero MD [address] [place] [address] Assigned OBGYN Provider 09/11/23 [place] Rangel MD [address] [place] [address] Assigned PCP 02/11/24
--- OUTSIDE RECORDS SUMMARY | 2024-04-26 11:42 | XMS_ITS | Encounter Summary ---
Author Organization [facility] Address [address] [place] [address] Care Team Providers Care Slip Operator Name Role Phone Robert Hatch MD Primary Care Provider [facility] Primary Care Provid er Unavailable Corine Bullard PA-C Primary Care Provider + [phone] Corine Bullard PA-C Unavailable [phone] Corine Bullard-Leo Unavailable [phone] Mery Reyna RN Unavailable Unavailable Tiffany Dinero MD Unavailable + Juliocesar June MD Primary Care Provider [phone] Tiffany Dinero MD Unavailable + Tiffany Dinero MD Unavailable + [place] Rangel MD Unavailable [phone] Encounter Details Date Type Department Care Team (Late st Contact Info) Description 05/10/2010 [facility] [address] [address] Cristy Kraft Social History Tobacco Use Types Packs/Day Years Used Date Smoking Tobacco: Never Alcohol Use Standard Drinks/Week Comments Not Asked 0 (1 standard drink = 0.6 oz pur e alcohol) Comments No Sex and Gender Information Value Date Recorded Sex Assigned at Female 05/15/2020 4:50 PM CDT Legal Sex Female 4:19 AM AUTOMATED WEAVER Gender Identity Female 05/15/2020 4:50 PM CDT [...] Out COVID-19 04/10/2020 04/10/2020 04/11/2020 3:27 PM AUTOMATED WEAVER Rule Out COVID-19 06/14/2021 06/14/2021 06/14/2021 10:34 PM CDT Rule Out COVID-19 11/15/2022 11/15/2022 11/15/2022 6:00 PM CDT Rule Out COVID-19 01/16/2023 01/16/2023 01/16/2023 5:19 PM AUTOMATED WEAVER Rule Out COVID-19 02/14/2023 02/14/2023 02/14/2023 6:41 PM AUTOMATED WEAVER Rule Out COVID-19 02/27/2023 02/27/2023 02/28/2023 12:40 AM AUTOMATED WEAVER COVID-19 02/27/2023 02/27/2023 03/20/2023 11:3 9 PM AUTOMATED WEAVER Rule Out COVID-19 08/22/2023 08/22/2023 08/22/2023 1:50 PM CDT documented as of this encounter Care Teams Slip Operator Relationship Specialty [place] [address] [place] [address] PCP - General 08/31/01 03/13/13 [facility] PCP - General 11/19/13 10/07/14 Corine Bullard PA-C PCP - General Physician Family Practice Physician 10/08/14 11/14/22 Corine Bullard PA-C [address] [place] [address] PCP - Assigned PCP 07/29/17 04/23/18 Juliocesar June MD [address] [place] [address] PCP - General Internal Medicine 11/15/22 Corine Bullard PA-C Assigned PCP 07/29/17 08/11/23 Mery Reyna, BRY Personal Advocate & Liaison (PAL) Nurse 05/24/20 06/28/20 Tiffany Dinero MD [address] [place] [address] Assigned OBGYN Provider 09/24/21 2 4 Tiffany Dinero MD [address] [place] [address] hair clipper power 08/13/23 Tiffany Dinero MD [address] [place] [address] Assigned OBGYN Provider 09/11/23 [place] Rangel MD [address] [place] [address] Assigned PCP 02/11/24 documented as of this encounter
--- OUTSIDE RECORDS SUMMARY | 2024-04-26 11:42 | XMS_ITS | Encounter Summary ---
Author Organization [facility] Address [address] [place] [address]. [place] [address] Care Team Providers Care Prosthetic Makeup Designer Name Role Phone Corine Bullard PA-C Primary Care Provider + [phone] Corine Bullard PA-C Unavailable [phone] Mery Reyna RN Unavailable Unavailable Tiffany Dinero MD Unavailable + Juliocesar June MD Primary Care Provider [phone] Tiffany Dinero MD Unavailable + Tiffany Dinero MD Unavailable + [place] Rangel MD Unavailable [phone] Reason for Visit * Reason Onset Date Comments Medication Question 06/14/2020 Encounter Details Date Type Department Care Team (Late st Contact Info) Description 06/14/2020 [facility] [address] [address] Corine Bullard PA-C [address] [id number] Medication Question Social History Tobacco Use Types Packs/Day Years Used Date Smoking Tobacco: Never Smokeless Tobacco: Never Alcohol Use Standard Drinks/Week Comments No 0 (1 standard drink = 0.6 oz pur e alcohol) PHQ-2 Answer Date Recorded PHQ-2 Score 0 02/27/2018 Comments No Sex and Gender Information Value Date Recorded Sex Assigned at Female 05/15/2020 4:50 PM CDT Legal Sex Female 4:19 AM BARIATRIC PHYSICIAN Gender Identity Female 05/15/2020 4:50 PM CDT Sexual Orientation Straight 05/15/2020 4: 50 PM CDT COVID-19 Exposure Response Date Recorded In the last month, have you been in contact with someone who was confirmed or suspected to have Coronavirus / COVID-19? No / Unsure 06/10/2020 1:03 PM CDT documented as of this encounter Miscellaneous Notes * Telephone Encounter - Ruby Mancini - 06/14/2020 9:28 AM CDT Routed to Triage / Ruby Mancini/EMT-B documented in this encounter Plan of Treatment Not on file documented as of this encounter Visit Diagnoses Not on filedocumented in this encounter Additional Health Concerns Infection Onset Date Last Indicated Resolved Time Rule Out COVID-19 06/14/2021 06/14/2021 06/14/2021 10:34 PM CDT Rule Out COVID-19 11/15/2022 11/15/2022 11/15/2022 6:00 PM CDT Rule Out COVID-19 01/16/2023 01/16/2023 01/16/2023 5:19 PM BARIATRIC PHYSICIAN Rule Out COVID-19 02/14/2023 02/14/2023 02/14/2023 6:41 PM BARIATRIC PHYSICIAN Rule Out COVID-19 02/27/2023 02/27/2023 02/28/2023 12:40 AM BARIATRIC PHYSICIAN COVID-19 02/27/2023 02/27/2023 03/20/2023 11:3 9 PM BARIATRIC PHYSICIAN Rule Out COVID-19 08/22/2023 08/22/2023 08/22/2023 1:50 PM CDT Assessment Noted Time PHQ-9 Depression Total Score: 3 06/12/19 21 7:03 AM CDT documented as of this encounter Care Teams Prosthetic Makeup Designer Relationship Specialty Start Date End Date Corine Bullard PA-C PCP - General Physician It Service Technician 10/08/14 11/14/22 Juliocesar June MD [address] [place] [address] PCP - General Internal Medicine 11/15/22 Corine Bullard PA-C Assigned PCP 07/29/17 08/11/23 Mery Reyna, BRY Personal Advocate & Liaison (PAL) Nurse 05/24/20 06/28/20 Tiffany Dinero MD [address] [place] [address] Assigned OBGYN Provider 09/24/21 4 Tiffany Dinero MD [address] [place] [address] communication skills instructor 08/13/23 Tiffany Dinero MD [address] [place] [address] Assigned OBGYN Provider 09/11/23 [place] Rangel MD [address] [place] [address] Assigned PCP 02/11/24 documented as of this encounter
--- OUTSIDE RECORDS SUMMARY | 2024-04-26 11:42 | XMS_ITS ---
Author Organization [facility] Address [address] [place] [address] Care Team Providers Care Aquatic Habitat Biologist Name Role Phone Juliocesar June Primary Care Provider Unavailab FIDEL Javed Unavailable [phone] Corine Bullard Unavailable Unavailable REASON FOR VISIT Prednisone no call back Encounters Encounter Location Date Provider Diagnosis [facility] [address] [place] [address] 07/18/2023 FIDEL GREENE Plan Of Treatment No Information Progress Notes * Carmelita DUNN MDOB: [birth year] (48 yo F)Acc No.[id number]:07/18/2023 Patient: Carmelita SELLERS :1975 A ge:48 Y S ex:Female Address:[address] [place] [address] * true * Date: Generated for Printi ng/Faxing/eTransmitting on: 0 04/26/2024 11:41 AM TRANSFER TABLE OPERATOR HELPER
--- OUTSIDE RECORDS SUMMARY | 2024-04-26 11:42 | XMS_ITS | Encounter Summary ---
Author Organization [place] Address [address] [place] [address]. [place] [address] Care Team Providers Care Venetian Blind Maker Name Role Phone Corine Bullard PA-C Primary Care Provider + [phone] Corine Bullard PA-C Unavailable [phone] Mery Reyna RN Unavailable Unavailable Tiffany Dinero MD Unavailable + Juliocesar June MD Primary Care Provider [phone] Tiffany Dinero MD Unavailable + Tiffany Dinero MD Unavailable + [place] Rangel MD Unavailable [phone] Reason for Visit * Reason Comments Medication Refill Encounter Details Date Type Department Care Team (Late st Contact Info) Description 09/01/[address] [address] Corine Bullard PA-C [address] [address] Medication Refill Social History Tobacco [...] PM CDT Legal Sex Female 4:19 AM MEDICAL COLLECTIONS SPECIALIST Gender Identity Female 05/15/2020 4:50 PM CDT Sexual Orientation Straight 05/15/2020 4: 50 PM CDT documented as of this encounter Miscellaneous Notes * Telephone Encounter - Noreen Vasques RN - 09/02/2019 8:07 AM CDT Prescription approved per [facility] Refill Protocol. Noreen Vasques RN on 09/02/2019 at 8:07 AM documented in this encounter Plan of Treatment Not on file documented as of this encounter Visit Diagnoses Diagnosis Anxiety state Anxiety state, unspecified documented in this encounter Additional Health Concerns Infection Onset Date Last Indicated Resolved Time Rule Out COVID-19 09/16/2019 09/16/2019 09/18/2019 1:55 PM CDT Rule Out COVID-19 04/10/2020 04/10/2020 04/11/2020 3:27 PM MEDICAL COLLECTIONS SPECIALIST Rule Out COVID-19 06/14/2021 06/14/2021 06/14/2021 10:34 PM CDT Rule Out COVID-19 11/15/2022 11/15/2022 11/15/2022 6:00 PM CDT Rule Out COVID-19 01/16/2023 01/16/2023 01/16/2023 5:19 PM MEDICAL COLLECTIONS SPECIALIST Rule Out COVID-19 02/14/2023 02/14/2023 02/14/2023 6:41 PM MEDICAL COLLECTIONS SPECIALIST Rule Out COVID-19 02/27/2023 02/27/2023 02/28/2023 12:40 AM MEDICAL COLLECTIONS SPECIALIST COVID-19 02/27/2023 02/27/2023 03/20/2023 11:3 9 PM MEDICAL COLLECTIONS SPECIALIST Rule Out COVID-19 08/22/2023 08/22/2023 08/22/2023 1:50 PM CDT Assessment Noted Time PHQ-9 Depression Total Score: 2 01/26/20 19 8:04 AM MEDICAL COLLECTIONS SPECIALIST documented as of this encounter Care Teams Venetian Blind Maker Relationship Specialty Start Date End Date Corine Bullard PA-C PCP - General Physician Piccoloist 10/08/14 11/14/22 Juliocesar June MD [address] [place] [address] PCP - General Internal Medicine 11/15/22 Corine Bullard PA-C Assigned PCP 07/29/17 08/11/23 Mery Reyna, BRY Personal Advocate & Liaison (PAL) Nurse 05/24/20 06/28/20 Tiffany Dinero MD [address] [address] [place] [address] Assigned OBGYN Provider 09/24/21 4 Tiffany Dinero MD [address] [place] [address] [place] [address] stablehand 08/13/23 Tiffany Dinero MD [address] [address] [place] [address] Assigned OBGYN Provider 09/11/23 Indiana Rangel MD [address] [place] [address] Assigned PCP 02/11/24 documented as of this encounter
--- OUTSIDE RECORDS SUMMARY | 2024-04-26 11:42 | XMS_ITS | Encounter Summary ---
Author Organization [place] Address [address] [place] [address] Care Team Providers Care Radio Station Operator Name Role Phone Corine Bullard PA-C Primary Care Provider + [phone] Corine Bullard PA-C Unavailable [phone] Tiffany Dinero MD Unavailable + Juliocesar June MD Primary Care Provider [phone] Tiffany Dinero MD Unavailable + Tiffany Dinero MD Unavailable + [place] Rangel MD Unavailable [phone] Encounter Details Date Type Department Care Team (Late st Contact Info) Description 09/24/2020 [facility] M [address] [address] Manjula Carcamo, [facility] Social History Tobacco Use Types Packs/Day Years Used Date Smoking Tobacco: Never Smokeless Tobacco: Never Alcohol Use Standard Drinks/Week Comments No 0 (1 standard drink = 0.6 oz pur e alcohol) PHQ-2 Answer Date Recorded PHQ-2 Score 0 06/23/2020 Comments No Sex and Gender Information Value Date Recorded Sex Assigned at Female 05/15/2020 4:50 PM CDT Legal Sex Female 4:19 AM R&D ENGINEER Gender Identity Female 05/15/2020 4:50 PM CDT Sexual Orientation Straight 05/15/2020 4: 50 PM CDT COVID-19 Exposure Response Date Recorded In the last month, have you been in contact with someone who was confirmed or suspected to have Coronavirus / COVID-19? No / Unsure 08/26/2020 1:08 PM CDT documented as of this encounter Plan of Treatment Not on file documented as of this encounter Visit Diagnoses Not on filedocumented in this encounter Additional Health Concerns Infection Onset Date Last Indicated Resolved Time Rule Out COVID-19 06/14/2021 06/14/2021 06/14/2021 10:34 PM CDT Rule Out COVID-19 11/15/2022 11/15/2022 11/15/2022 6:00 PM CDT Rule Out COVID-19 01/16/2023 01/16/2023 01/16/2023 5:19 PM R&D ENGINEER Rule Out COVID-19 02/14/2023 02/14/2023 02/14/2023 6:41 PM R&D ENGINEER Rule Out COVID-19 02/27/2023 02/27/2023 02/28/2023 12:40 AM R&D ENGINEER COVID-19 02/27/2023 02/27/2023 03/20/2023 11:3 9 PM R&D ENGINEER Rule Out COVID-19 08/22/2023 08/22/2023 08/22/2023 1:50 PM CDT Assessment Noted Time PHQ-9 Depression Total Score: 3 06/12/19 21 7:03 AM CDT documented as of this encounter Care Teams Radio Station Operator Relationship Specialty Start Date End Date Corine Bullard PA-C PCP - General Physician Lead C Developer 10/08/14 11/14/22 Juliocesar June MD [address] [facility] [address] [place] [address] PCP - General Internal Medicine 11/15/22 Corine Bullard PA-C Assigned PCP 07/29/17 08/11/23 Tiffany Dinero MD [address] [facility] [address] [place] [address] Assigned OBGYN Provider 09/24/21 4 Tiffany Dinero MD [address] [facility] [address] [place] [address] manager proposal 08/13/23 Tiffany Dinero MD [address] [facility] [address] [place] [address] Assigned OBGYN Provider 09/11/23 Indiana Rangel MD [address] [address] Assigned PCP 02/11/24 documented as of this encounter
--- OUTSIDE RECORDS SUMMARY | 2024-04-26 11:43 | XMS_ITS | Continuity of Care Document ---
Author Organization [facility] Address [address] , [address] [place] [address] Phone [phone] Care Team Providers Care Online Advertising Director Name Role Phone Juliocesar June MD Care Team Information Receiv er Unavailable [facility]ne[facility] Care Team In formation [employer] [phone] Social History Type Date Description Comments Sex Female Marital Status Legal Status: Tobacco Use Start: Unknown Never Smoked Cigarettes ETOH Use Rarely consumes alcohol Tobacco Use Start: Unknown Patient has never smoked Allergies and adverse reactions Active Allergies Criticality Reaction Severity Comments Date Zosyn Unable to assess criticality Hives 07/06/2020 Seasonal Allergies Unable to assess criticality 07/06/2020 Shrimp Unable to assess criticality Itchy throat. Moderate 07/12/2020 Ciprofloxacin Unable to assess criticality Headache, Joint/tendon pain 11/17/2022 Medications Active Medications SIG Qnty Indications Order ing Provider Date Valacyclovir HCL1gm Tablets take 1 tablet by mouth 3 times per day for 7 days for varicella infection 21tabs B02.9 Juliocesar June MD 06/18/2023 Nitroglycerin0.3mg Tablets Sub 1 sublingual tablet by 5-10 minutes before each large meal to treat esophageal dysmotility. 100tabs R07.9 Juliocesar June MD 04/17/2023 Albuterol Sulfate [id number](90Base) mcg/Act Aerosol Inhale 1 To 2 Puffs Into The Lungs Every 4 Hours as Needed For Shortness Of Breath Or Difficult Breathing 20.1gm Juliocesar June MD 02/16/2023 Levothyroxine [id number] Tablets Take 1 Tablet By Mouth Daily In The Morning On An Empty Stomach For Thyroid 90tabs Juliocesar June MD 09/26/2022 Calcium 1000 + [id number] Tablets 1 tablet every day with meals for bone and breast health, may take up to 1000 mg of calcium with k2 per day. E55.9 Juliocesar June MD 08/11/2022 [facility] Brand:Iron+Vitamin C TabletsTablets 1 tab by mouth every morning with vitamin c supplement and from dairy by at least 1-2 hours. E61.1 Juliocesar June MD 08/11/2022 [facility] Brand: Vit-K2 100 MG [id number] Capsules take 1 capsule daily and with vitamin d to help with its absorption. E55.9 Juliocesar June MD 08/11/2022 Pvjgin8-0-59.5LF-mcg /0.5 Suspension administer half a milliliters intramuscularly one time for diphtheria, tetanusand whooping cough prevention .500ml Z28.39 Juliocesar June MD 07/13/2021 Vitamin D31.25mg (86933 Ut) Capsules Take 1 Capsule By Mouth Once A Week With K2 And A Fatty Meal. 60caps E55.9 Juliocesar June MD 06/20/2021 Clonazepam0.5mg Tablets Take 1 tablet by mouth up to twice daily for panic disorder. Please be aware that you cannot drive or operate machinery or make any importa 30tabs F40.9 Juliocesar June MD 11/03/2020 [id number] g/ML Solution 1000 mcg subcutaneously once a week 12ml E53.8 Juliocesar June MD 07/28/2020 Epinephrine0.3mg/0.3 ML Solution Auto-Inject administer 0.3 milliliters intramuscularly as needed 2units T50.905A Juliocesar June MD 07/28/2020 Vitamin C Dvpugohd4P Per Teaspoon Powder 0.5 teaspoon daily dissolved in 4 ounces of water or citrus juice and taken with your iron supplements-otc E61.1 Juliocesar June MD 07/12/2020 Folic Zksu5qa Tablets Take 2 Tablets By Mouth Daily. Needs Office Visit For Follow Up 180tabs E53.8 Juliocesar June MD 07/12/2020 Zinc Oxide 30 MG30mg Tablets 1 tablet every day taken with calcium supplement for zinc supplementation-otc 90tabs E60 Juliocesar June MD 07/12/2020 Injection Vitamin B-12 Cyanocobalamin To 1000 mcg (Charge)Injection Unknown Medications Administered in Office Medication SIG Qnty Indications Ordering Provider Date Injection Vitamin B-12 Cyanocobalamin To 1000 mcg (PT Brought)Injection Nurse 02/18/2024 Therapeutic, Prophylactic Or Diagnostic Injection Subq/ImInjection Nurse 02/18/2024 Injection Vitamin B-12 Cyanocobalamin To 1000 mcg (PT Brought)Injection Nurse 02/07/2024 Therapeutic, Prophylactic Or Diagnostic Injection Subq/ImInjection Nurse 02/07/2024 Injection Vitamin B-12 Cyanocobalamin To 1000 mcg (PT Brought)Injection Nurse 01/28/2024 Therapeutic, Prophylactic Or Diagnostic Injection Subq/ImInjection Nurse 01/28/2024 Injection Vitamin B-12 Cyanocobalamin To 1000 mcg (PT Brought)Injection Nurse 01/10/2024 Therapeutic, Prophylactic Or Diagnostic Injection Subq/ImInjection Nurse 01/10/2024 Injection Vitamin B-12 Cyanocobalamin To 1000 mcg (PT Brought)Injection Nurse 12/21/2023 Therapeutic, Prophylactic Or Diagnostic Injection Subq/ImInjection Nurse 12/21/2023 Injection Vitamin B-12 Cyanocobalamin To 1000 mcg (PT Brought)Injection Nurse 12/07/2023 Therapeutic, Prophylactic Or Diagnostic Injection Subq/ImInjection Nurse 12/07/2023 Injection Vitamin B-12 Cyanocobalamin To 1000 mcg (PT Brought)Injection Labs 11/26/2023 Therapeutic, Prophylactic Or Diagnostic Injection Subq/ImInjection Labs 11/26/2023 Injection Vitamin B-12 Cyanocobalamin To 1000 mcg (PT Brought)Injection Nurse 10/19/2023 Therapeutic, Prophylactic Or Diagnostic Injection Subq/ImInjection Nurse 10/19/2023 Injection Vitamin B-12 Cyanocobalamin To 1000 mcg (PT Brought)Injection Nurse 10/08/2023 Therapeutic, Prophylactic Or Diagnostic Injection Subq/ImInjection Nurse 10/08/2023 Injection Vitamin B-12 Cyanocobalamin To 1000 mcg (PT Brought)Injection Nurse 09/27/2023 Therapeutic, Prophylactic Or Diagnostic Injection Subq/ImInjection Nurse 09/27/2023 Injection Vitamin B-12 Cyanocobalamin To 1000 mcg (PT Brought)Injection Juliocesar June MD Therapeutic, Prophylactic Or Diagnostic Injection Subq/ImInjection Juliocesar June MD 08/21 Injection Vitamin B-12 Cyanocobalamin To 1000 mcg (PT Brought)Injection Nurse 09/11/2023 Therapeutic, Prophylactic Or Diagnostic Injection Subq/ImInjection Nurse 09/11/2023 Injection Vitamin B-12 Cyanocobalamin To 1000 mcg (PT Brought)Injection Juliocesar June MD Injection Vitamin B-12 Cyanocobalamin To 1000 mcg (Charge)Injection Juliocesar June MD 09/2023 Therapeutic, Prophylactic Or Diagnostic Injection Subq/ImInjection Juliocesar June MD 09/2023 Injection Vitamin B-12 Cyanocobalamin To 1000 mcg (Charge)Injection Nurse 08/20/2023 Therapeutic, Prophylactic Or Diagnostic Injection Subq/ImInjection Nurse 08/20/2023 Injection Vitamin B-12 Cyanocobalamin To 1000 mcg (Charge)Injection Nurse 07/17/2023 Therapeutic, Prophylactic Or Diagnostic Injection Subq/ImInjection Nurse 07/17/2023 Injection Vitamin B-12 Cyanocobalamin To 1000 mcg (Charge)Injection Nurse 06/18/2023 Therapeutic, Prophylactic Or Diagnostic Injection Subq/ImInjection Nurse 06/18/2023 Injection Vitamin B-12 Cyanocobalamin To 1000 mcg (Charge)Injection Nurse 05/21/2023 Therapeutic, Prophylactic Or Diagnostic Injection Subq/ImInjection Nurse 05/21/2023 Injection Vitamin B-12 Cyanocobalamin To 1000 mcg (Charge)Injection Nurse 05/14/2023 Therapeutic, Prophylactic Or Diagnostic Injection Subq/ImInjection Nurse 05/14/2023 Injection Vitamin B-12 Cyanocobalamin To 1000 mcg (Charge)Injection Nurse 05/08/2023 Therapeutic, Prophylactic Or Diagnostic Injection Subq/ImInjection Nurse 05/08/2023 Injection Vitamin B-12 Cyanocobalamin To 1000 mcg (Charge)Injection Nurse 04/30/2023 Therapeutic, Prophylactic Or Diagnostic Injection Subq/ImInjection Nurse 04/30/2023 Injection Vitamin B-12 Cyanocobalamin To 1000 mcg (Charge)Injection Nurse 04/23/2023 Therapeutic, Prophylactic Or Diagnostic Injection Subq/ImInjection Nurse 04/23/2023 Injection Vitamin B-12 Cyanocobalamin To 1000 mcg (Charge)Injection Juliocesar June MD Therapeutic, Prophylactic Or Diagnostic Injection Subq/ImInjection Juliocesar June MD 03/23 Therapeutic, Prophylactic Or Diagnostic Injection Subq/ImInjection Nurse 04/09/2023 Injection Vitamin B-12 Cyanocobalamin To 1000 mcg (Charge)Injection Nurse 03/29/2023 Therapeutic, Prophylactic Or Diagnostic Injection Subq/ImInjection Nurse 03/29/2023 Injection Vitamin B-12 Cyanocobalamin To 1000 mcg (Charge)Injection Nurse 02/26/2023 Therapeutic, Prophylactic Or Diagnostic Injection Subq/ImInjection Nurse 02/26/2023 Injection Vitamin B-12 Cyanocobalamin To 1000 mcg (Charge)Injection Nurse 02/07/2023 Therapeutic, Prophylactic Or Diagnostic Injection Subq/ImInjection Nurse 02/07/2023 Injection Vitamin B-12 Cyanocobalamin To 1000 mcg (Charge)Injection Nurse 01/08/2023 Injection Vitamin B-12 Cyanocobalamin To 1000 mcg (Charge)Injection Nurse 12/22/2022 Therapeutic, Prophylactic Or Diagnostic Injection Subq/ImInjection Nurse 12/22/2022 Injection Vitamin B-12 Cyanocobalamin To 1000 mcg (Charge)Injection Nurse 12/05/2022 Therapeutic, Prophylactic Or Diagnostic Injection Subq/ImInjection Nurse 12/05/2022 Injection Vitamin B-12 Cyanocobalamin To 1000 mcg (Charge)Injection Juliocesar June MD Therapeutic, Prophylactic Or Diagnostic Injection Subq/ImInjection Juliocesar June MD 10/21 Injection Vitamin B-12 Cyanocobalamin To 1000 mcg (Charge)Injection Nurse 11/03/2022 Injection Vitamin B-12 Cyanocobalamin To 1000 mcg (Charge)Injection Nurse 10/16/2022 Therapeutic, Prophylactic Or Diagnostic Injection Subq/ImInjection Nurse 10/16/2022 Injection Vitamin B-12 Cyanocobalamin To 1000 mcg (Charge)Injection Nurse 09/22/2022 Injection Vitamin B-12 Cyanocobalamin To 1000 mcg (Charge)Injection Nurse 09/01/2022 Therapeutic, Prophylactic Or Diagnostic Injection Subq/ImInjection Nurse 09/01/2022 Injection Vitamin B-12 Cyanocobalamin To 1000 mcg (Charge)Injection Juliocesar June MD Therapeutic, Prophylactic Or Diagnostic Injection Subq/ImInjection Juliocesar June MD 07/21 Injection Vitamin B-12 Cyanocobalamin To 1000 mcg (Charge)Injection Nurse 01/06/2022 Injection Vitamin B-12 Cyanocobalamin To 1000 mcg (Charge)Injection Nurse 01/06/2022 Therapeutic, Prophylactic Or Diagnostic Injection Subq/ImInjection Nurse 01/06/2022 Injection Vitamin B-12 Cyanocobalamin To 1000 mcg (Charge)Injection Nurse 12/21/2021 Therapeutic, Prophylactic Or Diagnostic Injection Subq/ImInjection Nurse 12/21/2021 Injection Vitamin B-12 Cyanocobalamin To 1000 mcg (Charge)Injection Nurse 11/14/2021 Therapeutic, Prophylactic Or Diagnostic Injection Subq/ImInjection Nurse 11/14/2021 Injection Vitamin B-12 Cyanocobalamin To 1000 mcg (Charge)Injection Nurse 10/28/2021 Injection Vitamin B-12 Cyanocobalamin To 1000 mcg (Charge)Injection Nurse 08/24/2021 Therapeutic, Prophylactic Or Diagnostic Injection Subq/ImInjection Nurse 08/24/2021 Injection Vitamin B-12 Cyanocobalamin To 1000 mcg (Charge)Injection Nurse 08/10/2021 Injection Vitamin B-12 Cyanocobalamin To 1000 mcg (Charge)Injection Juliocesar June MD Therapeutic, Prophylactic Or Diagnostic Injection Subq/ImInjection Juliocesar June MD 06/20 Injection Vitamin B-12 Cyanocobalamin To 1000 mcg (Charge)Injection Nurse 06/29/2021 Therapeutic, Prophylactic Or Diagnostic Injection Subq/ImInjection Nurse 06/29/2021 Injection Vitamin B-12 Cyanocobalamin To 1000 mcg (Charge)Injection Nurse 06/15/2021 Therapeutic, Prophylactic Or Diagnostic Injection Subq/ImInjection Nurse 06/15/2021 Injection Vitamin B-12 Cyanocobalamin To 1000 mcg (Charge)Injection Juliocesar June MD 09/2021 Therapeutic, Prophylactic Or Diagnostic Injection Subq/ImInjection Juliocesar June MD 09/2021 Injection Vitamin B-12 Cyanocobalamin To 1000 mcg (Charge)Injection Juliocesar June MD Therapeutic, Prophylactic Or Diagnostic Injection Subq/ImInjection Juliocesar June MD 04/19 Injection Vitamin B-12 Cyanocobalamin To 1000 mcg (Charge)Injection Juliocesar June MD Therapeutic, Prophylactic Or Diagnostic Injection Subq/ImInjection Juliocesar June MD 02/19 Injection Vitamin B-12 Cyanocobalamin To 1000 mcg (Charge)Injection Juliocesar June MD 05/2021 Therapeutic, Prophylactic Or Diagnostic Injection Subq/ImInjection Juliocesar June MD 05/2021 Injection Vitamin B-12 Cyanocobalamin To 1000 mcg (Charge)Injection Juliocesar June MD Therapeutic, Prophylactic Or Diagnostic Injection Subq/ImInjection Juliocesar June MD 12/21 Injection Vitamin B-12 Cyanocobalamin To 1000 mcg (Charge)Injection Juliocesar June MD 01/2021 Therapeutic, Prophylactic Or Diagnostic Injection Subq/ImInjection Juliocesar June MD 12/20 Injection Vitamin B-12 Cyanocobalamin To 1000 mcg (Charge)Injection Juliocesar June MD Therapeutic, Prophylactic Or Diagnostic Injection Subq/ImInjection Juliocesar June MD 11/20 Injection Vitamin B-12 Cyanocobalamin To 1000 mcg (Charge)Injection Juliocesar June MD 01/2021 Therapeutic, Prophylactic Or Diagnostic Injection Subq/ImInjection Juliocesar June MD 11/19 Injection Vitamin B-12 Cyanocobalamin To 1000 mcg (Charge)Injection Juliocesar June MD Therapeutic, Prophylactic Or Diagnostic Injection Subq/ImInjection Juliocesar June MD 10/21 Injection Vitamin B-12 Cyanocobalamin To 1000 mcg (Charge)Injection Juliocesar June MD 08/2020 Therapeutic, Prophylactic Or Diagnostic Injection Subq/ImInjection Juliocesar June MD 08/2020 Injection Vitamin B-12 Cyanocobalamin To 1000 mcg (Charge)Injection Juliocesar June MD Therapeutic, Prophylactic Or Diagnostic Injection Subq/ImInjection Juliocesar June MD 09/20 Injection Vitamin B-12 Cyanocobalamin To 1000 mcg (Charge)Injection Juliocesar June MD 05/2020 Therapeutic, Prophylactic Or Diagnostic Injection Subq/ImInjection Juliocesar June MD 05/2020 Injection Vitamin B-12 Cyanocobalamin To 1000 mcg (Charge)Injection Juliocesar June MD Therapeutic, Prophylactic Or Diagnostic Injection Subq/ImInjection Juliocesar June MD 08/20 Injection Vitamin B-12 Cyanocobalamin To 1000 mcg (Charge)Injection Juliocesar June MD 08/2020 Therapeutic, Prophylactic Or Diagnostic Injection Subq/ImInjection Juliocesar June MD 08/2020 Injection Vitamin B-12 Cyanocobalamin To 1000 mcg (Charge)Injection Juliocesar June MD Therapeutic, Prophylactic Or Diagnostic Injection Subq/ImInjection Juliocesar June MD 07/21 Injection Vitamin B-12 Cyanocobalamin To 1000 mcg (Charge)Injection Juliocesar June MD 10/2020 Therapeutic, Prophylactic Or Diagnostic Injection Subq/ImInjection Juliocesar Jnue MD 10/2020 Injection Vitamin B-12 Cyanocobalamin To 1000 mcg (Charge)Injection Juliocesar June MD Therapeutic, Prophylactic Or Diagnostic Injection Subq/ImInjection Juliocesar June MD 06/20 Immunizations CPT Code Status Date Vaccine Lot # [id number] Given 06/02/2020 Sars-Cov-2 (Cov he-24-Khmoji) Vaccine 30 mcg/ 0.3 mL (No Charge) 97066 Given 08/11/2011 Tetanus, Diphth eria Toxoids/Acellular Pertussis Vaccine 7 Or > 26024 Given 04/29/2009 Tetanus, Diphth eria Toxoids/Acellular Pertussis Vaccine 7 Or > Vital Signs Date Vital Result Comment 12/28/2023 10:37am Height 65 inches 5'5 Weight 256.00 lb BMI (Body Mass Index) 42.6 kg/m2 BP Systolic 129 mmHg BP Diastolic 85 mmHg Heart Rate 76 /min Respiratory Rate 16 /min O2 % BldC Oximetry 96 % Body Temperature 97.3 F Results Test Acquired Date Facility Test Result H/L Range Note Clinical PDF Report [id number] PDF Report [id number] SEE IMAGE Vitamin B12/Folate, Serum Panel 4 [facility] Vitamin B12 1322 pg/mL High 200-1100 Folate, Serum 17.8 ng/mL Normal 1 Jak2 V617F Mutation Analysis 4 [facility] Clinical Indication POLYCYTHEMIA Specimen Source BLOOD Block/Specimen Id UNKNOWN Jak2 [id number] Mutation NOT DETECTED Not Detected Gene DNR Normal Amino Acid DNR Normal Mutation Frequency DNR Normal Mutation Type DNR Normal Exon DNR Normal Nucleotide Change DNR Normal Reference DNR Normal Interpretation SEE NOTE 2 Assay Details SEE NOTE 3 Enhanced PDF Report [id number] 4 [facility] Enhanced PDF Report [id number] SEE IMAGE Enhanced PDF Report [id number] 4 [facility] Enhanced PDF Report [id number] SEE IMAGE 4 Clinical PDF Report [id number] 4 [facility] PDF Report [id number] SEE IMAGE Testosterone,F ree,Bioavailab le+Total MS 4 [facility] Albumin 4.2 g/dL 3.6-5.1 Sex Hormone Binding Globulin 51.2 nmol/L 17-124 Testosterone, Free 1.5 pg/mL 0.2-5.0 Testosterone,B ioavailable 2.9 ng/dL 0.5-8.5 Testosterone, Total, MS 18 ng/dL 2-45 5 Progesterone 4 [facility] Progesterone <0.5 ng/mL Normal 6 FSH And LH 4 [facility] FSH 61.8 mIU/mL Normal 7 LH 35.1 mIU/mL Normal 8 Cyclic Citrullinated Peptide (CCP) AB (Igg) 4 [facility] Cyclic Citrullinated Peptide (CCP) AB (Igg) <16 units Normal 9 Medardo Young(Medardo,If a W/RFL And Refl 11 AB Young) 4 [facility] Medardo Young(Medardo,If a W/RFL And Refl 11 AB Young) NEGATIVE Normal Negative 10 Cortisol,Free, LC/MS,S 4 [facility] Cortisol,Free, LC/MS,S 0.52 g/dL 11 Acth, Plasma 4 [facility] Acth, Plasma 23 pg/mL 6-50 12 TSH 4 [facility] TSH 2.15 mIU/L Normal 13, 14 Enhanced PDF Report [id number] 4 [facility] Enhanced PDF Report [id number] SEE IMAGE Clinical PDF Report [id number] 4 [facility] Clinical PDF Report [id number] SEE IMAGE Lipid Panel, Standard 4 [facility] Cholesterol, Total 224 mg/dL High <200 HDL Cholesterol 54 mg/dL Normal > Or = 50 Triglycerides 178 mg/dL High <150 LDL-Cholestero l 139 mg/dL(calc) High 15 Chol/HDLC Ratio 4.1 (calc) Normal <5.0 Non HDL Cholesterol 170 mg/dL(calc) High <130 16 CBC (H/H, RBC, Indices, WBC, PLT) 4 [facility] White Blood Cell Count 7.4 Thousand/uL Normal 3.8-10.8 Red Blood Cell Count 5.23 Million/uL High 3.80-5.10 Hemoglobin 16.1 g/dL High 11.7-15.5 Hematocrit 48.9 % High 35.0-45.0 MCV 93.5 fL Normal 80.0-100. 0 MCH 30.8 pg Normal 27.0-33.0 MCHC 32.9 g/dL Normal 32.0-36.0 17 RDW 12.2 % Normal 11.0-15.0 Platelet Count 292 Thousand/uL Normal 1 40-400 MPV 9.8 fL Normal 7.5-12.5 Zinc 4 [facility] Zinc 88 g/dL Normal 60-130 18 T3, Free 4 [facility] T3, Free 3.1 pg/mL Normal 2.3-4.2 T4, Free 4 [facility] T4, Free 1.5 ng/dL Normal 0.8-1.8 Vitamin D,25-Oh,Total, Ia 4 [facility] Vitamin D,25-Oh,Total, Ia 67 ng/mL Normal 30-100 19 Gastrin 4 [facility] Gastrin 20 pg/mL < Or = 100 20 Vitamin B12/Folate, Serum Panel 4 [facility] Vitamin B12 1095 pg/mL Normal 200-1100 Folate, Serum >24.0 ng/mL Normal 21 Leptin 4 [facility] Leptin 11.9 ng/mL 22, 23 Clinical PDF Report [id number] 4 [facility] PDF Report [id number] SEE IMAGE 24 Zinc 4 [facility] Zinc 80 g/dL Normal 60-130 25 Vitamin B12/Folate, Serum Panel 4 [facility] Vitamin B12 1834 pg/mL High 200-1100 Folate, Serum >24.0 ng/mL Normal 26 Homocysteine 4 [facility] Homocysteine 7.7 umol/L Normal <10.4 27 CBC (H/H, RBC, Indices, WBC, PLT) 4 [facility] White Blood Cell Count 5.8 Thousand/uL Normal 3.8-10.8 Red Blood Cell Count 5.06 Million/uL Normal 3.80-5.10 Hemoglobin 15.4 g/dL Normal 11.7-15.5 Hematocrit 46.5 % High 35.0-45.0 MCV 91.9 fL Normal 80.0-100. 0 MCH 30.4 pg Normal 27.0-33.0 MCHC 33.1 g/dL Normal 32.0-36.0 RDW 12.8 % Normal 11.0-15.0 Platelet Count 303 Thousand/uL Normal 1 40-400 MPV 9.9 fL Normal 7.5-12.5 Enhanced PDF Report [id number] 4 [facility] Enhanced PDF Report [id number] SEE IMAGE 28 Advanced Lipid Panel Cardio Iq(R) 4 [facility] Cholesterol, Total 215 mg/dL High <200 HDL Cholesterol 49 mg/dL Low >49 Triglycerides 199 mg/dL High <150 LDL-Cholestero l 132 mg/dL(calc) High <100 29 Chol/HDLC Ratio 4.4 calc <5.0 Non HDL Cholesterol 166 mg/dL(calc) High <130 30 LDL Particle Number 2183 nmol/L High <1138 31 LDL Small 555 nmol/L High <142 32 LDL Medium 426 nmol/L High <215 33 HDL Large 5596 nmol/L Low >6729 34 LDL Pattern B Pattern Abnormal A 3 5 LDL Peak Size 210.9 Angstrom Low >22 2.9 36 Apolipoprotein B 116 mg/dL High <90 37 Lipoprotein (a) 184 nmol/L High <75 38 hs CRP 4 [facility] hs CRP 5.1 mg/L High 39 T3, Free 4 [facility] T3, Free 3.2 pg/mL Normal 2.3-4.2 TSH 4 [facility] TSH 2.10 mIU/L Normal 40 Vitamin D,25-Oh,Total, Ia 4 [facility] Vitamin D,25-Oh,Total, Ia 80 ng/mL Normal 30-100 41 Hemoglobin A1c 4 [facility] Hemoglobin A1c 5.3 %oftotalHgb Normal <5.7 42 Insulin 4 [facility] Insulin 9.3 uIU/mL Normal 43 Comprehensive Metabolic Panel 4 [facility] Glucose 90 mg/dL Normal 65-99 44 Urea Nitrogen (BUN) 9 mg/dL Normal 7-25 Creatinine 0.87 mg/dL Normal 0.50-0.99 Egfr 82 mL/min/1.73m2 Normal > Or = 60 BUN/Creatinine Ratio SEE NOTE: (calc) 6-22 45 Sodium 139 mmol/L Normal 135-146 Potassium 3.9 mmol/L Normal 3.5-5.3 Chloride 105 mmol/L Normal 98-110 Carbon Dioxide 25 mmol/L Normal 20-32 Calcium 9.3 mg/dL Normal 8.6-10.2 Protein, Total 6.9 g/dL Normal 6.1-8.1 Albumin 4.1 g/dL Normal 3.6-5.1 Globulin 2.8 g/dL(calc) Normal 1.9-3.7 Albumin/Globul in Ratio 1.5 (calc) Normal 1.0-2.5 Bilirubin, Total 1.5 mg/dL High 0.2-1.2 Alkaline Phosphatase 76 U/L Normal 31-125 Ast 15 U/L Normal 10-35 Alt 18 U/L Normal 6-29 Iron, Tibc And Ferritin Panel 4 [facility] Iron, Total 146 g/dL Normal 40-190 Iron Binding Capacity 267 mcg/dL(calc) Normal 250-450 % Saturation 55 %(calc) High 16-45 Ferritin 109 ng/mL Normal 16-232 Lipase 4 [facility] Lipase 29 U/L Normal 7-60 T4, Free 4 [facility] T4, Free 1.3 ng/dL Normal 0.8-1.8 Xray 4 [facility] CT Heart For Calcium Scoring W/O Contrast <pending> DBT Digital Breast Tomosynthesis Screening Bilateral <pending> NM Hepatobiliary Imaging W Pharmacologic <pending> Iodine, Serum/Plasma 4 [facility] Iodine, Serum/Plasma 116 g/L High 52-109 46, 47 Clinical PDF Report [id number] 4 [facility] Clinical PDF Report [id number] SEE IMAGE Phosphate (as Phosphorus) 4 [facility] Phosphate (as Phosphorus) 4.0 mg/dL Normal 2.5-4.5 Insulin 4 [facility] Insulin 9.0 uIU/mL Normal 48, 49 Enhanced PDF Report [id number] 4 [facility] Enhanced PDF Report [id number] SEE IMAGE Clinical PDF Report [id number] 4 [facility] Clinical PDF Report [id number] SEE IMAGE Comprehensive Metabolic Panel 4 [facility] Glucose 86 mg/dL Normal 65-99 50 Urea Nitrogen (BUN) 10 mg/dL Normal 7-25 Creatinine 0.94 mg/dL Normal 0.50-0.99 Egfr 74 mL/min/1.73m2 Normal > Or = 60 BUN/Creatinine Ratio SEE NOTE: (calc) 6-22 51 Sodium 140 mmol/L Normal 135-146 Potassium 3.8 mmol/L Normal 3.5-5.3 Chloride 104 mmol/L Normal 98-110 Carbon Dioxide 27 mmol/L Normal 20-32 Calcium 9.6 mg/dL Normal 8.6-10.2 Protein, Total 7.1 g/dL Normal 6.1-8.1 Albumin 4.2 g/dL Normal 3.6-5.1 Globulin 2.9 g/dL(calc) Normal 1.9-3.7 Albumin/Globul in Ratio 1.4 (calc) Normal 1.0-2.5 Bilirubin, Total 1.5 mg/dL High 0.2-1.2 Alkaline Phosphatase 73 U/L Normal 31-125 Ast 15 U/L Normal 10-35 Alt 12 U/L Normal 6-29 Lipid Panel, Standard 4 [facility] Cholesterol, Total 208 mg/dL High <200 HDL Cholesterol 45 mg/dL Low > Or = 50 Triglycerides 192 mg/dL High <150 LDL-Cholestero l 130 mg/dL(calc) High 52 Chol/HDLC Ratio 4.6 (calc) Normal <5.0 Non HDL Cholesterol 163 mg/dL(calc) High <130 53 Iodine, Serum/Plasma 4 [facility] Iodine, Serum/Plasma 148 g/L High 52-109 54 T3, Free 4 [facility] T3, Free 3.9 pg/mL Normal 2.3-4.2 T4, Free 4 [facility] T4, Free 1.6 ng/dL Normal 0.8-1.8 Vitamin D,25-Oh,Total, Ia 4 [facility] Vitamin D,25-Oh,Total, Ia 85 ng/mL Normal 30-100 55 Vitamin B12/Folate, Serum Panel 4 [facility] Vitamin B12 1040 pg/mL Normal 200-1100 Folate, Serum >24.0 ng/mL Normal 56 Leptin 4 [facility] Leptin 36.2 ng/mL 57 Homocysteine 4 [facility] Homocysteine 9.1 umol/L Normal <10.4 58 CBC (H/H, RBC, Indices, WBC, PLT) 4 [facility] White Blood Cell Count 5.3 Thousand/uL Normal 3.8-10.8 Red Blood Cell Count 5.05 Million/uL Normal 3.80-5.10 Hemoglobin 15.3 g/dL Normal 11.7-15.5 Hematocrit 46.2 % High 35.0-45.0 MCV 91.5 fL Normal 80.0-100. 0 MCH 30.3 pg Normal 27.0-33.0 MCHC 33.1 g/dL Normal 32.0-36.0 RDW 12.9 % Normal 11.0-15.0 Platelet Count 307 Thousand/uL Normal 1 40-400 MPV 10.1 fL Normal 7.5-12.5 TSH 4 [facility] TSH 0.51 mIU/L Normal 59 Iron, Tibc And Ferritin Panel 4 [facility] Iron, Total 131 g/dL Normal 40-190 Iron Binding Capacity 318 mcg/dL(calc) Normal 250-450 % Saturation 41 %(calc) Normal 16-45 Ferritin 67 ng/mL Normal 16-232 Clinical PDF Report [id number] 4 [facility] Clinical PDF Report [id number] SEE IMAGE Magnesium 4 [facility] Magnesium 2.2 mg/dL Normal 1.5-2.5 .Urine DIP In-Office 3 [facility] Urine Glucose QN Test Strip NEG Urine Bilirubin TTL QL T-Strip NEG Urine Ketones QL Test Strip NEG Urine Specific [place] 1.015 Ua Blood Qual 5-10 Ua PH Test Strip 8.0 Ua Protein 15+ (0.15) Urine Urobilinogen QN TS 0.2 Urine Nitrite QL TS NEG Ua WBC NEG Culture, Urine, Routine 3 [facility] Culture, Urine, Routine SEE NOTE 60 Clinical PDF Report [id number] [facility] Clinical PDF Report [id number] SEE IMAGE TSH 3 [facility] TSH 3.80 mIU/L Normal 61, 62 Enhanced PDF Report [id number] [facility] Enhanced PDF Report [id number] SEE IMAGE T3, Free 3 [facility] T3, Free 3.0 pg/mL Normal 2.3-4.2 T4, Free 3 [facility] T4, Free 1.1 ng/dL Normal 0.8-1.8 Thyroid Peroxidase And Thyroglobulin Antibodies 3 [facility] Thyroglobulin Antibodies <1 IU/mL Normal < or = 1 Thyroid Peroxidase Antibodies 176 IU/mL High <9 Vitamin D,25-Oh,Total, Ia 3 [facility] Vitamin D,25-Oh,Total, Ia 45 ng/mL Normal 30-100 63 Zinc 3 [facility] Zinc 73 g/dL Normal 60-130 64, 65 Clinical PDF Report [id number] [facility] Clinical PDF Report [id number] SEE IMAGE Vitamin B1 (Thiamine), Serum/Plasma, LC/MS/MS 3 [facility] Vitamin B1 (Thiamine), Serum/Plasma, LC/MS/MS 13 nmol/L 8-30 66 Vitamin B12/Folate, Serum Panel 3 [facility] Vitamin B12 397 pg/mL Normal 200-1100 67 Folate, Serum 13.9 ng/mL Normal 68 Iron, Tibc And Ferritin Panel 3 [facility] Iron, Total 129 g/dL Normal 40-190 Iron Binding Capacity 311 mcg/dL(calc) Normal 250-450 % Saturation 41 %(calc) Normal 16-45 Ferritin 40 ng/mL Normal 16-232 Homocysteine 3 [facility] Homocysteine 10.2 umol/L Normal <10.4 69 hs CRP 3 [facility] hs CRP 8.3 mg/L High 70 Comprehensive Metabolic Panel 3 [facility] Glucose 83 mg/dL Normal 65-99 71 Urea Nitrogen (BUN) 12 mg/dL Normal 7-25 Creatinine 1.01 mg/dL High 0.50-0.99 Egfr 69 mL/min/1.73m2 Normal > Or = 60 72 BUN/Creatinine Ratio 12 (calc) Normal 6-22 Sodium 142 mmol/L Normal 135-146 Potassium 3.8 mmol/L Normal 3.5-5.3 Chloride 105 mmol/L Normal 98-110 Carbon Dioxide 30 mmol/L Normal 20-32 Calcium 9.4 mg/dL Normal 8.6-10.2 Protein, Total 6.8 g/dL Normal 6.1-8.1 Albumin 3.9 g/dL Normal 3.6-5.1 Globulin 2.9 g/dL(calc) Normal 1.9-3.7 Albumin/Globul in Ratio 1.3 (calc) Normal 1.0-2.5 Bilirubin, Total 1.0 mg/dL Normal 0.2-1.2 Alkaline Phosphatase 87 U/L Normal 31-125 Ast 14 U/L Normal 10-35 Alt 12 U/L Normal 6-29 Hemoglobin A1c 3 [facility] Hemoglobin A1c 5.1 %oftotalHgb Normal <5.7 73 CBC (H/H, RBC, Indices, WBC, PLT) 3 [facility] White Blood Cell Count 6.4 Thousand/uL Normal 3.8-10.8 Red Blood Cell Count 4.97 Million/uL Normal 3.80-5.10 Hemoglobin 15.2 g/dL Normal 11.7-15.5 Hematocrit 44.4 % Normal 35.0-45.0 MCV 89.3 fL Normal 80.0-100. 0 MCH 30.6 pg Normal 27.0-33.0 MCHC 34.2 g/dL Normal 32.0-36.0 RDW 12.7 % Normal 11.0-15.0 Platelet Count 279 Thousand/uL Normal 1 40-400 MPV 9.9 fL Normal 7.5-12.5 Lipid Panel, Standard 3 [facility] Cholesterol, Total 226 mg/dL High <200 HDL Cholesterol 51 mg/dL Normal > Or = 50 Triglycerides 143 mg/dL Normal <150 LDL-Cholestero l 148 mg/dL(calc) High 74 Chol/HDLC Ratio 4.4 (calc) Normal <5.0 Non HDL Cholesterol 175 mg/dL(calc) High <130 75 Leptin 3 [facility] Leptin 46.0 ng/mL High 76 Insulin 3 [facility] Insulin 8.1 uIU/mL Normal 77 Enhanced PDF Report [id number] [facility] Enhanced PDF Report [id number] SEE IMAGE 78 Vitamin D,25-Oh,Total, Ia 3 [facility] Vitamin D,25-Oh,Total, Ia 37 ng/mL Normal 30-100 79 T3, Free 3 [facility] T3, Free 3.6 pg/mL Normal 2.3-4.2 T4, Free 3 [facility] T4, Free 1.4 ng/dL Normal 0.8-1.8 TSH 3 [facility] TSH 2.27 mIU/L Normal 80 Iodine, Serum/Plasma 2 [facility] Iodine, Serum/Plasma 80 g/L 52-109 81 Enhanced PDF Report [id number] 2 [facility] Enhanced PDF Report [id number] SEE IMAGE Clinical PDF Report [id number] [facility] Clinical PDF Report [id number] SEE IMAGE Lipid Panel, Standard 2 [facility] Cholesterol, Total 211 mg/dL High <200 HDL Cholesterol 56 mg/dL Normal > Or = 50 Triglycerides 117 mg/dL Normal <150 LDL-Cholestero l 133 mg/dL(calc) High 82 Chol/HDLC Ratio 3.8 (calc) Normal <5.0 Non HDL Cholesterol 155 mg/dL(calc) High <130 83 Iron, Tibc And Ferritin Panel 2 [facility] Iron, Total 68 g/dL Normal 40-190 Iron Binding Capacity 322 mcg/dL(calc) Normal 250-450 % Saturation 21 %(calc) Normal 16-45 Ferritin 34 ng/mL Normal 16-232 CBC (H/H, RBC, Indices, WBC, PLT) 2 [facility] White Blood Cell Count 5.5 Thousand/uL Normal 3.8-10.8 Red Blood Cell Count 5.06 Million/uL Normal 3.80-5.10 Hemoglobin 15.3 g/dL Normal 11.7-15.5 Hematocrit 45.4 % High 35.0-45.0 MCV 89.7 fL Normal 80.0-100. 0 MCH 30.2 pg Normal 27.0-33.0 MCHC 33.7 g/dL Normal 32.0-36.0 RDW 12.3 % Normal 11.0-15.0 Platelet Count 301 Thousand/uL Normal 1 40-400 MPV 9.5 fL Normal 7.5-12.5 Vitamin D,25-Oh,Total, Ia 2 [facility] Vitamin D,25-Oh,Total, Ia 59 ng/mL Normal 30-100 84 T3, Free 2 [facility] T3, Free 2.9 pg/mL Normal 2.3-4.2 T4, Free 2 [facility] T4, Free 1.3 ng/dL Normal 0.8-1.8 TSH 2 [facility] TSH 3.35 mIU/L Normal 85 Vitamin B12/Folate, Serum Panel 2 [facility] Vitamin B12 866 pg/mL Normal 200-1100 Folate, Serum >24.0 ng/mL Normal 86 T3, Free 1 [facility] T3, Free 2.7 pg/mL Normal 2.3-4.2 Enhanced PDF Report [id number] [facility] Enhanced PDF Report [id number] SEE IMAGE Clinical PDF Report [id number] 1 [facility] Clinical PDF Report [id number] SEE IMAGE Interpretation 1 [facility] Interpretation (SEE NOTE) 87 Celiac Disease Diagnostic Panel 1 [facility] Tissue Transglutamina se AB, Igg <1.0 U/mL Normal 88 Tissue Transglutamina se AB, Iga <1.0 U/mL Normal 89 Gliadin (Deamidated) AB (Iga) 2.0 U/mL Normal 90 Gliadin (Deamidated) AB (Igg) <1.0 U/mL Normal 91 Immunoglobulin A 180 mg/dL Normal 47-310 Food Allergy Profile With Reflexes 1 [facility] Egg White (F1) Ige <0.10 kU/L Normal Class 0 Peanut (F13) Ige <0.10 kU/L Normal Class 0 Wheat (F4) Ige <0.10 kU/L Normal Class 0 [place] (F256) Ige <0.10 kU/L Normal Class 0 Codfish (F3) Ige <0.10 kU/L Normal Class 0 Cow's Milk (F2) Ige <0.10 kU/L Normal Class 0 Soybean (F14) Ige <0.10 kU/L Normal Class 0 Shrimp (F24) Ige 0.14 kU/L High Class 0/1 Scallop (F338) Ige <0.10 kU/L Normal Class 0 Sesame Seed (F10) Ige <0.10 kU/L Normal Class 0 Hazelnut (F17) Ige <0.10 kU/L Normal Class 0 Cashew Nut (F202) Ige <0.10 kU/L Normal Class 0 Spring (F20) Ige <0.10 kU/L Normal Class 0 [place] (F41) Ige <0.10 kU/L Normal Class 0 TUNA (F40) Ige <0.10 kU/L Normal Class 0 T4, Free 1 [facility] T4, Free 1.4 ng/dL Normal 0.8-1.8 TSH 1 [facility] TSH 3.59 mIU/L Normal 92 Zinc 1 [facility] Zinc 79 g/dL Normal 60-130 93 CBC (Includes Diff/PLT) With Pathologist Review 1 [facility] White Blood Cell Count 7.2 Thousand/uL Normal 3.8-10.8 Red Blood Cell Count 5.24 Million/uL High 3.80-5.10 Hemoglobin 15.7 g/dL High 11.7-15.5 Hematocrit 46.0 % High 35.0-45.0 MCV 87.8 fL Normal 80.0-100. 0 MCH 30.0 pg Normal 27.0-33.0 MCHC 34.1 g/dL Normal 32.0-36.0 RDW 12.9 % Normal 11.0-15.0 Platelet Count 313 Thousand/uL Normal 1 40-400 MPV 9.5 fL Normal 7.5-12.5 Absolute Neutrophils 4824 cells/uL Normal 0300-6033 Absolute Band Neutrophils DNR cells/uL Normal 0-750 Absolute Metamyelocytes DNR cells/uL Normal 0 Absolute Myelocytes DNR cells/uL Normal 0 Absolute Promyelocytes DNR cells/uL Normal 0 Absolute Lymphocytes 1656 cells/uL Normal 850-3900 Absolute Monocytes 576 cells/uL Normal 200-950 Absolute Eosinophils 72 cells/uL Normal 15-500 Absolute Basophils 72 cells/uL Normal 0-200 Absolute Blasts DNR cells/uL Normal 0 Absolute Nucleated RBC DNR cells/uL Normal 0 Neutrophils 67 % Normal Band Neutrophils DNR % Normal Metamyelocytes DNR % Normal Myelocytes DNR % Normal Promyelocytes DNR % Normal Lymphocytes 23 % Normal Reactive Lymphocytes DNR % Normal 0-10 Monocytes 8 % Normal Eosinophils 1 % Normal Basophils 1 % Normal Blasts DNR % Normal Nucleated RBC DNR /100WBC Normal 0 Comment (S) (SEE NOTE) 9 4 Vitamin B6, Plasma 1 [facility] Vitamin B6, Plasma 31.3 ng/mL High 2.1-21.7 95 Vitamin B12/Folate, Serum Panel 1 [facility] Vitamin B12 1709 pg/mL High 200-1100 Folate, Serum >24.0 ng/mL Normal 96 Enhanced PDF Report [id number] [facility] Enhanced PDF Report [id number] SEE IMAGE Clinical PDF Report [id number] 1 [facility] Clinical PDF Report [id number] SEE IMAGE Iodine, Serum/Plasma 1 [facility] Iodine, Serum/Plasma 75 g/L 52-109 97 Comprehensive Metabolic Panel 1 [facility] Glucose 89 mg/dL Normal 65-99 98 Urea Nitrogen (BUN) 8 mg/dL Normal 7-25 Creatinine 0.99 mg/dL Normal 0.50-1.10 eGFR Non-Afr. [place] 68 mL/min/1.73m2 Normal > Or = 60 eGFR 79 mL/min/1.73m2 Normal > Or = 60 BUN/Creatinine Ratio NOT APPLICABLE (calc) 6-22 Sodium 139 mmol/L Normal 135-146 Potassium 3.9 mmol/L Normal 3.5-5.3 Chloride 102 mmol/L Normal 98-110 Carbon Dioxide 27 mmol/L Normal 20-32 Calcium 9.6 mg/dL Normal 8.6-10.2 Protein, Total 7.1 g/dL Normal 6.1-8.1 Albumin 4.3 g/dL Normal 3.6-5.1 Globulin 2.8 g/dL(calc) Normal 1.9-3.7 Albumin/Globul in Ratio 1.5 (calc) Normal 1.0-2.5 Bilirubin, Total 1.0 mg/dL Normal 0.2-1.2 Alkaline Phosphatase 68 U/L Normal 31-125 Ast 16 U/L Normal 10-35 Alt 11 U/L Normal 6-29 Vitamin D,25-Oh,Total, Ia 1 [facility] Vitamin D,25-Oh,Total, Ia 80 ng/mL Normal 30-100 99 TSH 1 [facility] TSH 2.60 mIU/L Normal 100 CBC (H/H, RBC, Indices, WBC, PLT) 1 [facility] White Blood Cell Count 5.2 Thousand/uL Normal 3.8-10.8 Red Blood Cell Count 5.54 Million/uL High 3.80-5.10 Hemoglobin 16.4 g/dL High 11.7-15.5 Hematocrit 48.7 % High 35.0-45.0 MCV 87.9 fL Normal 80.0-100. 0 MCH 29.6 pg Normal 27.0-33.0 MCHC 33.7 g/dL Normal 32.0-36.0 RDW 12.7 % Normal 11.0-15.0 Platelet Count 314 Thousand/uL Normal 1 40-400 MPV 10.1 fL Normal 7.5-12.5 Iron, Tibc And Ferritin Panel 1 [facility] Iron, Total 73 g/dL Normal 40-190 Iron Binding Capacity 272 mcg/dL(calc) Normal 250-450 % Saturation 27 %(calc) Normal 16-45 Ferritin 30 ng/mL Normal 16-232 Leptin 1 [facility] Leptin 15.9 ng/mL 101 Insulin 1 [facility] Insulin 3.6 uIU/mL Normal 102 Vitamin D,25-Oh,Total, Ia 07/14/202 1 [facility] Vitamin D,25-Oh,Total, Ia 60 ng/mL Normal 30-100 103, 104 Enhanced PDF Report [id number] [facility] Enhanced PDF Report [id number] SEE IMAGE Clinical PDF Report [id number] 1 [facility] Clinical PDF Report [id number] SEE IMAGE Zinc 1 [facility] Zinc 68 g/dL Normal 60-130 105 Insulin 1 [facility] Insulin 20.3 uIU/mL High 106 Iron, Tibc And Ferritin Panel 1 [facility] Iron, Total 142 g/dL Normal 40-190 Iron Binding Capacity 338 mcg/dL(calc) Normal 250-450 % Saturation 42 %(calc) Normal 16-45 Ferritin 21 ng/mL Normal 16-232 CBC (H/H, RBC, Indices, WBC, PLT) 1 [facility] White Blood Cell Count 7.6 Thousand/uL Normal 3.8-10.8 Red Blood Cell Count 5.06 Million/uL Normal 3.80-5.10 Hemoglobin 14.9 g/dL Normal 11.7-15.5 Hematocrit 44.9 % Normal 35.0-45.0 MCV 88.7 fL Normal 80.0-100. 0 MCH 29.4 pg Normal 27.0-33.0 MCHC 33.2 g/dL Normal 32.0-36.0 RDW 13.0 % Normal 11.0-15.0 Platelet Count 305 Thousand/uL Normal 1 40-400 MPV 9.6 fL Normal 7.5-12.5 T3, Free 1 [facility] T3, Free 3.1 pg/mL Normal 2.3-4.2 T4, Free 1 [facility] T4, Free 1.1 ng/dL Normal 0.8-1.8 TSH 1 [facility] TSH 3.10 mIU/L Normal 107 Vitamin B12/Folate, Serum Panel 1 [facility] Vitamin B12 707 pg/mL Normal 200-1100 Folate, Serum >24.0 ng/mL Normal 108 Enhanced PDF Report [id number] 1 [facility] Enhanced PDF Report [id number] SEE IMAGE Interpretation 1 [facility] Interpretation (SEE NOTE) 109 [place] Cochineal Extract (F340) [place] I 1 [facility] [place] Cochineal Extract (F340) Ige <0.10 kU/L Class 0 Interpretation 1 [facility] Interpretation (SEE NOTE) 110 [place], Grass (G202) Ige 1 [facility] [place], Grass (G202) Ige <0.10 kU/L Normal Class 0 [place] (F8) Ige 1 [facility] [place] (F8) Ige <0.10 kU/L Normal Class 0 Allergen Specific Iga [place] Dye/Red Dye 1 [facility] Allergen Specific Iga [place] Dye/Red Dye <1 mg/L <5 111 Enhanced PDF Report [id number] 1 [facility] Enhanced PDF Report [id number] SEE IMAGE [place] Cochineal Extract (F340) Red Dye I 1 [facility] [place]ye Cochineal Extract (F340) Ige <0.10 kU/L Class 0 Interpretation 1 [facility] Interpretation (SEE NOTE) 112 Allergen Specific Iga [place] Dye/Red Dye 1 [facility] Allergen Specific Iga [place] Dye/Red Dye <1 mg/L <5 113 Interpretation 1 [facility] Interpretation (SEE NOTE) 114 [place], Grass (G202) Ige 1 [facility] [place], Grass (G202) Ige <0.10 kU/L Normal Class 0 [place] (F8) Ige 1 [facility] [place] (F8) Ige <0.10 kU/L Normal Class 0 Allergen Specific Iga [place] Dye/Red Dye 1 [facility] Allergen Specific Iga [place] Dye/Red Dye <1 mg/L <5 115 [place] Cochineal Extract (F340) Red D[place] I 1 [facility] [place] Cochineal Extract (F340) Ige <0.10 kU/L Class 0 [place], Grass (G202) Ige 1 [facility] [place], Grass (G202) Ige <0.10 kU/L Normal Class 0 Enhanced PDF Report [id number] [facility] Enhanced PDF Report [id number] SEE IMAGE [place] (F8) Ige 1 [facility] [place] (F8) Ige <0.10 kU/L Normal Class 0 [place], Grass (G202) Ige 1 [facility] [place], Grass (G202) Ige <0.10 kU/L Normal Class 0 Interpretation 1 [facility] Interpretation (SEE NOTE) 116 [place] Cochineal Extract (F340) [place] I 1 [facility] [place] Cochineal Extract (F340) Ige <0.10 kU/L Class 0 Enhanced PDF Report [id number] [facility] Enhanced PDF Report [id number] SEE IMAGE Allergen Specific Iga [place] Dye/Red Dye 1 [facility] Allergen Specific Iga [place] Dye/Red Dye <1 mg/L <5 117 [place] (F8) Ige 1 [facility] [place] (F8) Ige <0.10 kU/L Normal Class 0 Vitamin B2 (Riboflavin), Plasma 1 [facility] Vitamin B2 (Riboflavin), Plasma 7.5 nmol/L 6.2-39.0 118 CBC (H/H, RBC, Indices, WBC, PLT) 1 [facility] White Blood Cell Count 9.3 Thousand/uL Normal 3.8-10.8 Red Blood Cell Count 5.26 Million/uL High 3.80-5.10 Hemoglobin 15.5 g/dL Normal 11.7-15.5 Hematocrit 46.1 % High 35.0-45.0 MCV 87.6 fL Normal 80.0-100. 0 MCH 29.5 pg Normal 27.0-33.0 MCHC 33.6 g/dL Normal 32.0-36.0 RDW 12.8 % Normal 11.0-15.0 Platelet Count 340 Thousand/uL Normal 1 40-400 MPV 9.4 fL Normal 7.5-12.5 Iron, Tibc And Ferritin Panel 1 [facility] Iron, Total 89 g/dL Normal 40-190 Iron Binding Capacity 361 mcg/dL(calc) Normal 250-450 % Saturation 25 %(calc) Normal 16-45 Ferritin 22 ng/mL Normal 16-232 Vitamin C 1 [facility] Vitamin C 1.0 mg/dL 0.3-2.7 119 Vitamin D,25-Oh,Total, Ia 1 [facility] Vitamin D,25-Oh,Total, Ia 32 ng/mL Normal 30-100 120 PTH, Intact Without Calcium 1 [facility] PTH, Intact Without Calcium 23 pg/mL Normal 14-64 121 Hemoglobin A1c 1 [facility] Hemoglobin A1c 5.1 %oftotalHgb Normal <5.7 122 Zinc 1 [facility] Zinc 60 g/dL Normal 60-130 123 Enhanced PDF Report [id number] [facility] Enhanced PDF Report [id number] SEE IMAGE Clinical PDF Report [id number] 1 [facility] Clinical PDF Report [id number] SEE IMAGE Prolactin 1 [facility] Prolactin 6.2 ng/mL Normal 124 FSH And LH 1 [facility] FSH 32.6 mIU/mL Normal 125 LH 21.7 mIU/mL Normal 126 Norepinephrine , Plasma 1 [facility] Norepinephrine , Plasma 573 pg/mL 127 Vitamin B6, Plasma 1 [facility] Vitamin B6, Plasma 12.4 ng/mL 2.1-21.7 128 Vitamin B12/Folate, Serum Panel 1 [facility] Vitamin B12 403 pg/mL Normal 200-1100 Folate, Serum 15.5 ng/mL Normal 129 Vitamin B1 (Thiamine), Serum/Plasma, LC/MS/MS 1 [facility] Vitamin B1 (Thiamine), Serum/Plasma, LC/MS/MS 21 nmol/L 8-30 130 TSH 1 [facility] TSH 2.93 mIU/L Normal 131 T4, Free 1 [facility] T4, Free 1.1 ng/dL Normal 0.8-1.8 T3, Free 1 [facility] T3, Free 3.1 pg/mL Normal 2.3-4.2 Iodine, Serum/Plasma 1 [facility] Iodine, Serum/Plasma 70 g/L 52-109 132 Food Allergy Profile 1 [facility] Egg White (F1) Ige <0.10 kU/L Normal Class 0 Peanut (F13) Ige <0.10 kU/L Normal Class 0 Wheat (F4) Ige <0.10 kU/L Normal Class 0 [place] (F256) Ige <0.10 kU/L Normal Class 0 Codfish (F3) Ige <0.10 kU/L Normal Class 0 Cow's Milk (F2) Ige <0.10 kU/L Normal Class 0 Soybean (F14) Ige <0.10 kU/L Normal Class 0 Shrimp (F24) Ige 0.20 kU/L High Class 0/1 Scallop (F338) Ige <0.10 kU/L Normal Class 0 Sesame Seed (F10) Ige <0.10 kU/L Normal Class 0 Hazelnut (F17) Ige <0.10 kU/L Normal Class 0 Cashew Nut (F202) Ige <0.10 kU/L Normal Class 0 Spring (F20) Ige <0.10 kU/L Normal Class 0 [place] (F41) Ige <0.10 kU/L Normal Class 0 TUNA (F40) Ige <0.10 kU/L Normal Class 0 Interpretation (SEE NOTE) 133 Epinephrine, Plasma 1 [facility] Epinephrine, Plasma <20 pg/mL 134 Metanephrines, Fract, Free, LC/MS/MS, Plasma 1 [facility] Metanephrine, Free <25 pg/mL < Or = 57 135 Normetanephrin e, Free 86 pg/mL < Or = 148 136 Total, Free (MN+NMN) 86 pg/mL < Or = 205 137 Dopamine, Plasma 1 [facility] Dopamine, Plasma SEE NOTE pg/mL 138 Iron and iron binding capacity 1 [facility] Iron 90 g/dL 35 - 180 Iron Binding Cap 331 g/dL 240 - 430 Iron Saturation Index 27 % 15 - 46 Vitamin D Deficiency 1 [facility] Vitamin D Deficiency screening 17 ug/L Low 20 - 75 139 HIV Antigen Antibody Combo 1 [facility] HIV Antigen Antibody Combo Nonreactive NR^Nonrea ctive 140 Covid-19 Virus (Coronavirus) Antibody & Titer Refl 1 [facility] Covid-19 [place] RBD Evonne Negative 141 Covid-19 [place] RBD Evonne Titer Not Applicable 142 Hepatitis C Screen Reflex to HCV Rna Quant and Gen 1 [facility] Hepatitis C Antibody Nonreactive NR^Nonrea ctive 143 Ferritin 1 [facility] Ferritin 20 ng/mL 8 - 252 CBC with platelets differential 1 [facility] WBC 9.8 4.0 - 11.0 10e9/L RBC Count 4.79 3.8 - 5.2 10e12/L Hemoglobin 14.8 g/dL 11.7 - 15.7 Hematocrit 43.0 % 35.0 - 47.0 MCV 90 fl 78 - 100 MCH 30.9 pg 26.5 - 33.0 MCHC 34.4 g/dL 31.5 - 36.5 RDW 13.9 % 10.0 - 15.0 Platelet Count 271 150 - 450 10e9/L % Neutrophils 75.4 % % Lymphocytes 17.3 % % Monocytes 6.0 % % Eosinophils 0.8 % % Basophils 0.5 % Absolute Neutrophil 7.4 1.6 - 8.3 10e9/L Absolute Lymphocytes 1.7 0.8 - 5.3 10e9/L Absolute Monocytes 0.6 0.0 - 1.3 10e9/L Absolute Eosinophils 0.1 0.0 - 0.7 10e9/L Absolute Basophils 0.1 0.0 - 0.2 10e9/L Diff Method Automated Method D dimer, quantitative 1 [facility] D Dimer <0.3 0.0 - 0.50 ug/ml Feu 144 Lipid panel reflex to direct LDL Fasting 1 [facility] Cholesterol 164 mg/dL <200 Triglycerides 176 mg/dL High <150 145 HDL Cholesterol 39 mg/dL Low >49 LDL Cholesterol Calculated 90 mg/dL <100 146 Non HDL Cholesterol 125 mg/dL <130 BNP-N terminal pro 1 [facility] N-Terminal Pro Bnp 69 pg/mL 0 - 125 147 TSH with free T4 reflex 1 [facility] TSH 6.31 mU/L High 0.40 - 4.00 T4 free 1 [facility] T4 Free 0.83 ng/dL 0.76 - 1.46 Sars-CoV-2 Covid-19 Virus (Coronavirus) by PCR 1 [facility] Sars-CoV-2 Virus Specimen Source Nasopharyngeal Sars-CoV-2 PCR Result Negative 148 Sars-CoV-2 PCR Comment See Note 149 Symptomatic Covid-19 Virus (Coronavirus) by PCR 1 [facility] Covid-19 Virus PCR to [facility] - Source Nasopharyngeal Covid-19 Virus PCR to [facility] - Result See Note 150 TSH 1 [facility] TSH 2.31 mU/L 0.40 - 4.00 HCG Qual, Urine ([id number]) 1 [facility] HCG Qual Urine Negative Neg^Negat toro 151 *Ua reflex to Microscopic and Culture (Range and F 1 [facility] Color Urine Yellow Appearance Urine Clear Glucose Urine Negative Neg^Negat toro mg/dL Bilirubin Urine Negative Neg^Negat toro Ketones Urine Negative Neg^Negat toro mg/dL Specific [place] Urine 1.020 1.003 - 1.035 Blood Urine Negative Neg^Negat toro pH Urine 7.5 pH High 5.0 - 7.0 Protein Albumin Urine Negative Neg^Negat toro mg/dL Urobilinogen Urine 0.2 EU/dL 0.2 - 1.0 Nitrite Urine Negative Neg^Negat toro Leukocyte Esterase Urine Negative Neg^Negat toro Source Midstream Urine 1 Reference Range Low: <3.4 Borderline: 3.4-5.4 Normal: >5.4 2 A JAK2 V617F mutatio n is not detected.This data was reviewed and interpreted by Kosta Avitia, PhD. HCLSoraida(ABB) This data was reviewed and interpreted by Kosta Avitia, PhD. HCLSoraida(ABB) 3 This PCR-based [employer] sequencing assay interrogates DNA from leukocytes for the presence of mutations in codon 617 of JAK2. The sensitivity of mutation detection is 5%. Alterations outside of the tested areas of this gene will not be detected. Synonymous or known non-synonymous polymorphic changes (SNPs) are not reported. JAK2 V617F mutation is associated with myeloproliferative neoplasms (MPNs), including polycythemia vera (PV), essential thrombocythemia (ET) and primary myelofibrosis (PMF), and a small subset of other myeloid neoplasms. Increasing allele burden of JAK2 V617F in MPNs has been shown in a number of studies to be associated with increased symptoms including pruritis, splenomegaly, and leukocytosis. Results of this assay should be correlated with morphology and other laboratory testing for final diagnosis and classification. If this test is negative, additional testing that may be useful for workup of MPNs, depending on presenting hematologic features, includes BCR-ABL1 rearrangement (test code 68952 or 21713R) or mutational analysis of CALR (ET/PMF, 69450), JAK2 exon 12 (PV, 65588), MPL (ET/PMF, 20401) or CSF3R (chronic neutrophilic leukemia, 65747). Residual material from this sample may be used except for BCR-ABL1 testing; call lab to add. DNA was aligned to GRCh37(hg19) for analysis and transcript ID [id number] was used as reference for JAK2 sequence. For additional information, please refer to [email or web address].Art Qualified/faq/HQB719 (This link is being provided for informational/educational purposes only.) This test was developed and its analytical performance characteristics have been determined by [facility]. It has not been cleared or approved by FDA. This assay has been validated pursuant to the CLIA regulations and is used for clinical purposes. 4 FASTING:YES FASTING: YES 5 For additional infor mation, please refer to https://education.PipelineDB/faq/DNB694 (This link is being provided for informational/educational purposes only.) (Note) This test was developed and its analytical performance characteristics have been determined by [facility]. It has not been cleared or approved by the FDA. This assay has been validated pursuant to the CLIA regulations and is used for clinical purposes. [employer] [facility] [address] [address],[address] [facility] [address] Gerardo Tovar MD, PhD 6 Reference Ranges Female Follicular Phase < 1.0 Luteal Phase 2.6-21.5 Post menopausal < 0.5 1st Trimester 4.1-34.0 2nd Trimester 24.0-76.0 3rd Trimester 52.0-302.0 7 Reference Range Follicular Phase 2.5-10.2 Mid-cycle Peak 3.1-17.7 Luteal Phase 1.5- 9.1 Postmenopausal 23.0-116.3 8 Reference Range Follicular Phase 1.9-12.5 Mid-Cycle Peak 8.7-76.3 Luteal Phase 0.5-16.9 Postmenopausal 10.0-54.7 9 Reference Range Negative: <20 Weak Positive: 20-39 Moderate Positive: 40-59 Strong Positive: >59 10 MEDARDO IFA is a first l ine screen for detecting the presence of up to approximately 150 autoantibodies in various autoimmune diseases. A negative MEDARDO IFA result suggests an MEDARDO-associated autoimmune disease is not present at this time, and does not reflex further. If there is high clinical suspicion for Sjogren's syndrome, testing for anti-SS-A/Ro antibody should be considered. Anti-Isela-1 antibody should be considered for clinically suspected inflammatory myopathies. AC-0: Negative International Consensus on MEDARDO Patterns (https://doi.org/10.1515/hwzj-4681-2323) For additional information, please refer to http://education.Art Qualified/faq/YPC893 (This link is being provided for informational/ educational purposes only.) 11 Adult Reference Rang es for Cortisol, MS, Free: 8:00 - 10:00 AM 0.07-0.93 mcg/dL 4:00 - 6:00 PM 0.04-0.45 mcg/dL 10:00 - 11:00 PM 0.04-0.35 mcg/dL This test was developed and its analytical performance characteristics have been determined by [facility]. It has not been cleared or approved by FDA. This assay has been validated pursuant to the CLIA regulations and is used for clinical purposes. 12 Reference range appl ies only to the specimens collected between 7am-10am. 13 FASTING:YES FASTING: YES 14 Reference Range > or = 20 Years 0.40-4.50 Ranges First trimester 0.26-2.66 Second trimester 0.55-2.73 Third trimester 0.43-2.91 15 Reference range: <10 0 Desirable range <100 mg/dL for primary prevention; <70 mg/dL for patients with CHD or diabetic patients with > or = 2 CHD risk factors. LDL-C is now calculated using the Luis-Sean calculation, which is a validated novel method providing better accuracy than the Friedewald equation in the estimation of LDL-C. Luis CARPIO et al. JUSTIN. 2013;310(19): 2456-7106 (http://education.Trust Mico.R[employer]M Engineering/faq/YFN006) 16 For patients with di abetes plus 1 major ASCVD risk factor, treating to a non-HDL-C goal of <100 mg/dL (LDL-C of <70 mg/dL) is considered a therapeutic option. 17 For adults, a slight decrease in the calculated MCHC value (in the range of 30 to 32 g/dL) is most likely not clinically significant; however, it should be interpreted with caution in correlation with other red cell parameters and the patient's clinical condition. 18 This test was develo ped and its analytical performance characteristics have been determined by [facility]. It has not been cleared or approved by the FDA. This assay has been validated pursuant to the CLIA regulations and is used for clinical purposes. 19 Vitamin D Status 25- OH Vitamin D: Deficiency: <20 ng/mL Insufficiency: 20 - 29 ng/mL Optimal: > or = 30 ng/mL For 25-OH Vitamin D testing on patients on D2-supplementation and patients for whom quantitation of D2 and D3 fractions is required, the QuestAssureD(TM) 25-OH VIT D, (D2,D3), LC/MS/MS is recommended: order code 15500 (patients >2yrs). See Note 1 Note 1 For additional information, please refer to http://Celsense.Art [email or web address]/faq/IZQ274 (This link is being provided for informational/ educational purposes only.) 20 NOTE: Reference rang e applies to fasting specimen only. For additional information, please refer to http://[employer]/faq/WPD172 (This link is being provided for informational/educational purposes only.) 21 Reference Range Low: <3.4 Borderline: 3.4-5.4 Normal: >5.4 22 FASTING 8 HOUR FASTI NG:YES FASTING: YES 23 Reference Ranges for Leptin: Adult Lean Subjects (18-71 years) with BMI range of 18-25: Males: 0.3-13.4 ng/mL Females: 4.7-23.7 ng/mL Adult Subjects (19-60 years) with BMI range of 25-30: Males: 1.8-19.9 ng/mL Females: 8.0-38.9 ng/mL Pediatric Reference Ranges for Leptin: 5-9.9 years: 0.6-16.8 ng/mL 10-13.9 years: 1.4-16.5 ng/mL 14-17.9 years: 0.6-24.9 ng/mL This test was developed and its analytical performance characteristics have been determined by [facility]. It has not been cleared or approved by FDA. This assay has been validated pursuant to the CLIA regulations and is used for clinical purposes. 24 SPLIT 04/06/2023 GRACIELA Paige [id number] FASTING:YES FASTING: YES 25 This test was hazelo ped and its analytical performance characteristics have been determined by [facility]. It has not been cleared or approved by the FDA. This assay has been validated pursuant to the CLIA regulations and is used for clinical purposes. 26 Reference Range Low: <3.4 Borderline: 3.4-5.4 Normal: >5.4 27 Homocysteine is incr eased by functional deficiency of folate or vitamin B12. Testing for methylmalonic acid differentiates between these deficiencies. Other causes of increased homocysteine include renal failure, folate antagonists such as methotrexate and phenytoin, and exposure to nitrous oxide. Andrew Orona et al., Xochitl [place] Med. 1999;131(5):331-9. 28 FASTING 8 HOUR FASTI NG:YES FASTING: YES 29 Desirable range <100 mg/dL for primary prevention; <70 mg/dL for patients with CHD or diabetic patients with >= 2 CHD risk factors. LDL-C is now calculated using the Luis-Estrada calculation, which is a validated novel method providing better accuracy than the Friedewald equation in the estimation of LDL-C. Luis SS et al. JUSTIN. 2013;310(19): 5240-7765 (http://education.[employer].com/faq/FHW268) LDL-C is now calculated using the Luis-Estrada calculation, which is a validated novel method providing better accuracy than the Friedewald equation in the estimation of LDL-C. Luis SS et al. JUSTIN. 2013;310(19): 5053-8954 (http://education.[employer].com/faq/NNW753) 30 For patients with di abetes plus 1 major ASCVD risk factor, treating to a non-HDL-C goal of <100 mg/dL (LDL-C of <70 mg/dL) is considered a therapeutic option. For patients with diabetes plus 1 major ASCVD risk factor, treating to a non-HDL-C goal of <100 mg/dL (LDL-C of <70 mg/dL) is considered a therapeutic option. 31 Relative Risk: Optim al <1138; Moderate 6348-2421; High >1409. Male and Female Reference Range: 1016 to 2185 nmol/L. 32 Relative Risk: Optim al <142; Moderate 142-219; High >219. Male Reference Range: 123 to 441 nmol/L; Female Reference Range: 115 to 386 nmol/L. 33 Relative Risk: Optim al <215; Moderate 215-301; High >301. Male Reference Range: 167 to 485 nmol/L; Female Reference Range: 121 to 397 nmol/L. 34 Relative Risk: Optim al >6729; Moderate 6480-7265; High <5353. Male Reference Range: 4334 to 95873 nmol/L; Female Reference Range: 5038 to 32210 nmol/L. 35 Relative Risk: Optim al Pattern A; High Pattern B. Reference Range: Pattern A. 36 This test was develo ped and its analytical performance characteristics have been determined by [facility]. It has not been cleared or approved by the U.S. Food and Drug Administration. This assay has been validated pursuant to the CLIA regulations and is used for clinical purposes. Relative Risk: Optimal >222.9; Moderate 222.9-217.4; High <217.4. Male and Female Reference Range: 216 to 234.3 Angstrom. Adult cardiovascular event risk category cut points (optimal, moderate, high) are based on an adult [place] reference population plus two large cohort study populations. Association between lipoprotein subfractions and cardiovascular events is based on Carlos et al. ATVB.2009;29:1975. For additional information, please refer to http://education.[employer]/faq/QXJ679 (This link is being provided for informational/educational purposes only.) 37 Risk: Optimal <90 mg /dL; Moderate 90-119 mg/dL; High >= 120 mg/dL; Cardiovascular event risk category cut points (optimal, moderate, high) are based on National Lipid Association recommendations- Joyner TA et al. J of Clin Lipid. 2015; 9: 129-169 and Timo NAJERA et al. Endocr Pract. 2017;23(Suppl 2):1-87. 38 Risk: Optimal <75 nm ol/L; Moderate 75-125 nmol/L; High >125 nmol/L. Cardiovascular event risk category cut points (optimal, moderate, high) are based on Aminata Lind JACC 2017;69:692-711. 39 Reference Range Optimal <1.0 Timo Bullard al. Endocr Pract.2017;23(Suppl 2):1-87. For ages >17 Years: hs-CRP mg/L Risk According to AHA/CDC Guidelines <1.0 Lower relative cardiovascular risk. 1.0-3.0 Average relative cardiovascular risk. 3.1-10.0 Higher relative cardiovascular risk. Consider retesting in 1 to 2 weeks to exclude a benign transient elevation in the baseline CRP value secondary to infection or inflammation. >10.0 Persistent elevation, upon retesting, may be associated with infection and inflammation. 40 Reference Range > or = 20 Years 0.40-4.50 Ranges First trimester 0.26-2.66 Second trimester 0.55-2.73 Third trimester 0.43-2.91 41 Vitamin D Status 25- [place] Vitamin D: Deficiency: <20 ng/mL Insufficiency: 20 - 29 ng/mL Optimal: > or = 30 ng/mL For 25-OH Vitamin D testing on patients on D2-supplementation and patients for whom quantitation of D2 and D3 fractions is required, the QuestAssureD(TM) 25-OH VIT D, (D2,D3), LC/MS/MS is recommended: order code [id number] (patients >2yrs). See Note 1 Note 1 For additional information, please refer to http://education.[employer]/faq/GCB954 (This link is being provided for informational/ educational purposes only.) 42 For the purpose of s creening for the presence of diabetes: <5.7% Consistent with the absence of diabetes 5.7-6.4% Consistent with increased risk for diabetes (prediabetes) > or =6.5% Consistent with diabetes This assay result is consistent with a decreased risk of diabetes. Currently, no consensus exists regarding use of hemoglobin A1c for diagnosis of diabetes in children. According to [place] Diabetes Association (ADA) guidelines, hemoglobin A1c <7.0% represents optimal control in non- diabetic patients. Different metrics may apply to specific patient populations. Standards of Medical Care in Diabetes(ADA). This test was performed on the Nick trent c503 platform. Effective 04/25/23, a change in test platforms from the [employer] to the Nick trent c503 may have shifted HbA1c results compared to historical results. Based on laboratory validation testing conducted at [facility], the Nick platform relative to the Hi platform had an average increase in HbA1c value of < or = 0.3%. This difference is within accepted variability established by the National Glycohemoglobin Standardization Program. Note that not all individuals will have had a shift in their results and direct comparisons between historical and current results for testing conducted on different platforms is not recommended. 43 Reference Range < or = 18.4 Risk: Optimal < or = 18.4 Moderate NA High >18.4 Adult cardiovascular event risk category cut points (optimal, moderate, high) are based on Insulin Reference Interval studies performed at [facility] in 2021. 44 Fasting reference in [facility] 45 Not Reported: BUN an d Creatinine are within reference range. 46 FASTING:YES COLLECTI ON REQUIREMENTS NOT MET. PATIENT ADVISED TO RETURN. FASTING: YES 47 This test was develo ped and its analytical performance characteristics have been determined by [facility] [place], [place]. It has not been cleared or approved by the U.S. Food and Drug Administration. This assay has been validated pursuant to the CLIA regulations and is used for clinical purposes. 48 FASTING:YES FASTING: YES 49 Reference Range < or = 18.4 Risk: Optimal < or = 18.4 Moderate NA High >18.4 Adult cardiovascular event risk category cut points (optimal, moderate, high) are based on Insulin Reference Interval studies performed at [facility] in 2021. 50 Fasting reference in [facility] 51 Not Reported: BUN an d Creatinine are within reference range. 52 Reference range: <10 0 Desirable range <100 mg/dL for primary prevention; <70 mg/dL for patients with CHD or diabetic patients with > or = 2 CHD risk factors. LDL-C is now calculated using the Luis-Sean calculation, which is a validated novel method providing better accuracy than the Friedewald equation in the estimation of LDL-C. Luis CARPIO et al. JUSTIN. 2013;310(19): 8281-1470 (http://education.[employer]/faq/EDZ899) 53 For patients with di abetes plus 1 major ASCVD risk factor, treating to a non-HDL-C goal of <100 mg/dL (LDL-C of <70 mg/dL) is considered a therapeutic option. 54 This test was jayne madera and its analytical performance characteristics have been determined by [facility] [place], [place]. It has not been cleared or approved by the U.S. Food and Drug Administration. This assay has been validated pursuant to the CLIA regulations and is used for clinical purposes. 55 Vitamin D Status 25- OH Vitamin D: Deficiency: <20 ng/mL Insufficiency: 20 - 29 ng/mL Optimal: > or = 30 ng/mL For 25-OH Vitamin D testing on patients on D2-supplementation and patients for whom quantitation of D2 and D3 fractions is required, the QuestAssureD(TM) 25-OH VIT D, (D2,D3), LC/MS/MS is recommended: order code [id number] (patients >2yrs). See Note 1 Note 1 For additional information, please refer to http://education.[employer]/faq/XVV752 (This link is being provided for informational/ educational purposes only.) 56 Reference Range Low: <3.4 Borderline: 3.4-5.4 Normal: >5.4 57 Reference Ranges for Leptin: Adult Lean Subjects (18-71 years) with BMI range of 18-25: Males: 0.3-13.4 ng/mL Females: 4.7-23.7 ng/mL Adult Subjects (19-60 years) with BMI range of 25-30: Males: 1.8-19.9 ng/mL Females: 8.0-38.9 ng/mL Pediatric Reference Ranges for Leptin: 5-9.9 years: 0.6-16.8 ng/mL 10-13.9 years: 1.4-16.5 ng/mL 14-17.9 years: 0.6-24.9 ng/mL This test was developed and its analytical performance characteristics have been determined by [facility]. It has not been cleared or approved by FDA. This assay has been validated pursuant to the CLIA regulations and is used for clinical purposes. 58 Homocysteine is incr eased by functional deficiency of folate or vitamin B12. Testing for methylmalonic acid differentiates between these deficiencies. Other causes of increased homocysteine include renal failure, folate antagonists such as methotrexate and phenytoin, and exposure to nitrous oxide. Selhub J, et al., Xochitl [place] Med. 1999;131(5):331-9. 59 Reference Range > or = 20 Years 0.40-4.50 Ranges First trimester 0.26-2.66 Second trimester 0.55-2.73 Third trimester 0.43-2.91 60 CULTURE, URINE, ROUT INE Micro Number: [id number] Test Status: Final Specimen Source: Urine, clean catch Specimen Quality: Adequate Result: No Growth 61 FASTING:YES FASTING: YES 62 Reference Range > or = 20 Years 0.40-4.50 Ranges First trimester 0.26-2.66 Second trimester 0.55-2.73 Third trimester 0.43-2.91 63 Vitamin D Status 25- OH Vitamin D: Deficiency: <20 ng/mL Insufficiency: 20 - 29 ng/mL Optimal: > or = 30 ng/mL For 25-OH Vitamin D testing on patients on D2-supplementation and patients for whom quantitation of D2 and D3 fractions is required, the QuestAssureD(TM) 25-OH VIT D, (D2,D3), LC/MS/MS is recommended: order code [id number] (patients >2yrs). See Note 1 Note 1 For additional information, please refer to http://education.[employer]/faq/IMR808 (This link is being provided for informational/ educational purposes only.) 64 FASTING FASTING:YES FASTING: YES 65 This test was develo ped and its analytical performance characteristics have been determined by [facility]. It has not been cleared or approved by the FDA. This assay has been validated pursuant to the CLIA regulations and is used for clinical purposes. 66 Vitamin supplementat ion within 24 hours prior to blood draw may affect the accuracy of results. This test was developed and its analytical performance characteristics have been determined by [facility]. It has not been cleared or approved by the FDA. This assay has been validated pursuant to the CLIA regulations and is used for clinical purposes. 67 Please Note: Althoug h the reference range for vitamin B12 is 200-1100 pg/mL, it has been reported that between 5 and 10% of patients with values between 200 and 400 pg/mL may experience neuropsychiatric and hematologic abnormalities due to occult B12 deficiency; less than 1% of patients with values above 400 pg/mL will have symptoms. 68 Reference Range Low: <3.4 Borderline: 3.4-5.4 Normal: >5.4 69 Homocysteine is incr eased by functional deficiency of folate or vitamin B12. Testing for methylmalonic acid differentiates between these deficiencies. Other causes of increased homocysteine include renal failure, folate antagonists such as methotrexate and phenytoin, and exposure to nitrous oxide. Andrew Orona, et al., Xochitl [place] Med. 1999;131(5):331-9. 70 Reference Range Optimal <1.0 Timo NAJERA et al. Endocr Pract.2017;23(Suppl 2):1-87. For ages >17 Years: hs-CRP mg/L Risk According to AHA/CDC Guidelines <1.0 Lower relative cardiovascular risk. 1.0-3.0 Average relative cardiovascular risk. 3.1-10.0 Higher relative cardiovascular risk. Consider retesting in 1 to 2 weeks to exclude a benign transient elevation in the baseline CRP value secondary to infection or inflammation. >10.0 Persistent elevation, upon retesting, may be associated with infection and inflammation. 71 Fasting reference in terval 72 The eGFR is based on the CKD-EPI 2020 equation. To calculate the new eGFR from a previous Creatinine or Cystatin C result, go to https://www.kidney.org/professionals/ kdoqi/gfr%5Fcalculator 73 For the purpose of s creening for the presence of diabetes: <5.7% Consistent with the absence of diabetes 5.7-6.4% Consistent with increased risk for diabetes (prediabetes) > or =6.5% Consistent with diabetes This assay result is consistent with a decreased risk of diabetes. Currently, no consensus exists regarding use of hemoglobin A1c for diagnosis of diabetes in children. According to [place] Diabetes Association (ADA) guidelines, hemoglobin A1c <7.0% represents optimal control in non- diabetic patients. Different metrics may apply to specific patient populations. Standards of Medical Care in Diabetes(ADA). 74 Reference range: <10 0 Desirable range <100 mg/dL for primary prevention; <70 mg/dL for patients with CHD or diabetic patients with > or = 2 CHD risk factors. LDL-C is now calculated using the Luis-Sean calculation, which is a validated novel method providing better accuracy than the Friedewald equation in the estimation of LDL-C. Luis CARPIO et al. JUSTIN. 2013;310(19): 5933-6993 (http://education.[facility].com/faq/ZGQ646) 75 For patients with di abetes plus 1 major ASCVD risk factor, treating to a non-HDL-C goal of <100 mg/dL (LDL-C of <70 mg/dL) is considered a therapeutic option. 76 Reference Ranges for Leptin: Adult Lean Subjects (18-71 years) with BMI range of 18-25: Males: 0.3-13.4 ng/mL Females: 4.7-23.7 ng/mL Adult Subjects (19-60 years) with BMI range of 25-30: Males: 1.8-19.9 ng/mL Females: 8.0-38.9 ng/mL Pediatric Reference Ranges for Leptin: 5-9.9 years: 0.6-16.8 ng/mL 10-13.9 years: 1.4-16.5 ng/mL 14-17.9 years: 0.6-24.9 ng/mL This test was developed and its analytical performance characteristics have been determined by [facility]. It has not been cleared or approved by FDA. This assay has been validated pursuant to the CLIA regulations and is used for clinical purposes. 77 Reference Range < or = 18.4 Risk: Optimal < or = 18.4 Moderate NA High >18.4 Adult cardiovascular event risk category cut points (optimal, moderate, high) are based on Insulin Reference Interval studies performed at [facility] in 2021. 78 FASTING:YES FASTING: YES 79 Vitamin D Status 25- OH Vitamin D: Deficiency: <20 ng/mL Insufficiency: 20 - 29 ng/mL Optimal: > or = 30 ng/mL For 25-OH Vitamin D testing on patients on D2-supplementation and patients for whom quantitation of D2 and D3 fractions is required, the QuestAssureD(TM) 25-OH VIT D, (D2,D3), LC/MS/MS is recommended: order code [id number] (patients >2yrs). See Note 1 Note 1 For additional information, please refer to http://[employer]/faq/YVW951 (This link is being provided for informational/ educational purposes only.) 80 Reference Range > or = 20 Years 0.40-4.50 Ranges First trimester 0.26-2.66 Second trimester 0.55-2.73 Third trimester 0.43-2.91 81 This test was develo ped and its analytical performance characteristics have been determined by [facility] [place], [place]. It has not been cleared or approved by the U.S. Food and Drug Administration. This assay has been validated pursuant to the CLIA regulations and is used for clinical purposes. 82 Reference range: <10 0 Desirable range <100 mg/dL for primary prevention; <70 mg/dL for patients with CHD or diabetic patients with > or = 2 CHD risk factors. LDL-C is now calculated using the Luis-Estrada calculation, which is a validated novel method providing better accuracy than the Friedewald equation in the estimation of LDL-C. Luis SS et al. JUSTIN. 2013;310(19): 2749-3430 (http://C[employer]/faq/GDD584) 83 For patients with di abetes plus 1 major ASCVD risk factor, treating to a non-HDL-C goal of <100 mg/dL (LDL-C of <70 mg/dL) is considered a therapeutic option. 84 Vitamin D Status 25- OH Vitamin D: Deficiency: <20 ng/mL Insufficiency: 20 - 29 ng/mL Optimal: > or = 30 ng/mL For 25-OH Vitamin D testing on patients on D2-supplementation and patients for whom quantitation of D2 and D3 fractions is required, the QuestAssureD(TM) 25-OH VIT D, (D2,D3), LC/MS/MS is recommended: order code [id number] (patients >2yrs). See Note 1 Note 1 For additional information, please refer to http://Cels[employer]/faq/PYY358 (This link is being provided for informational/ educational purposes only.) 85 Reference Range > or = 20 Years 0.40-4.50 Ranges First trimester 0.26-2.66 Second trimester 0.55-2.73 Third trimester 0.43-2.91 86 Reference Range Low: <3.4 Borderline: 3.4-5.4 Normal: >5.4 87 Specific Level of Al lergen IGE Class kU/L Specific IGE Antibody ----- --------- 0 <0.10 Absent/Undetectable 0/1 0.10-0.34 Very Low Level 1 0.35-0.69 Low Level 2 0.70-3.49 Moderate Level 3 3.50-17.4 High Level 4 17.5-49.9 Very High Level 5 50-100 Very High Level 6 >100 Very High Level The clinical relevance of allergen results of 0.10-0.34 kU/L are undetermined and intended for specialist use. Allergens denoted with a include results using one or more analyte specific reagents. In those cases, the test was developed and its analytical performance characteristics have been determined by [facility]. It has not been cleared or approved by the U.S. Food and Drug Administration. This assay has been validated pursuant to the CLIA regulations and is used for clinical purposes. 88 Value Interpretation ----- <15.0 Antibody not detected > or = 15.0 Antibody detected 89 Value Interpretation ----- <15.0 Antibody not detected > or = 15.0 Antibody detected 90 Value Interpretation ----- <15.0 Antibody not detected > or = 15.0 Antibody detected 91 Value Interpretation ----- <15.0 Antibody not detected > or = 15.0 Antibody detected 92 Reference Range > or = 20 Years 0.40-4.50 Ranges First trimester 0.26-2.66 Second trimester 0.55-2.73 Third trimester 0.43-2.91 93 This test was develo ped and its analytical performance characteristics have been determined by [facility]. It has not been cleared or approved by the FDA. This assay has been validated pursuant to the CLIA regulations and is used for clinical purposes. 94 NORMAL WBC AND PLATE LET MORPHOLOGY AND POLYCYTHEMIA WITH NORMAL RBC MORPHOLOGY. CONSIDER AN INFECTIOUS OR REACTIVE ETIOLOGY. CORRELATE CLINICALLY TO RULE OUT CAUSES OF PRIMARY OR SECONDARY POLYCYTHEMIA. CORRELATION AND CLINICALLY APPROPRIATE FOLLOW UP SUGGESTED. SMEAR(S) REVIEWED BY JUHI RODRIGUEZ M.D. 95 Vitamin supplementat ion within 24 hours prior to blood draw may affect the accuracy of results. This test was developed and its analytical performance characteristics have been determined by [facility]. It has not been cleared or approved by the FDA. This assay has been validated pursuant to the CLIA regulations and is used for clinical purposes. 96 Reference Range Low: <3.4 Borderline: 3.4-5.4 Normal: >5.4 97 This test was jayne ped and its analytical performance characteristics have been determined [facility] [place] It has not been cleared or approved by the U.S. Food and Drug Administration. This assay has been validated pursuant to the CLIA regulations and is used for clinical purposes. 98 Fasting reference in terval 99 Vitamin D Status 25- OH Vitamin D: Deficiency: <20 ng/mL Insufficiency: 20 - 29 ng/mL Optimal: > or = 30 ng/mL For 25-OH Vitamin D testing on patients on D2-supplementation and patients for whom quantitation of D2 and D3 fractions is required, the QuestAssureD(TM) 25-OH VIT D, (D2,D3), LC/MS/MS is recommended: order code [id number] (patients >2yrs). See Note 1 Note 1 For additional information, please refer to http://education.[employer]/faq/AOF328 (This link is being provided for informational/ educational purposes only.) 100 Reference Range > or = 20 Years 0.40-4.50 Ranges First trimester 0.26-2.66 Second trimester 0.55-2.73 Third trimester 0.43-2.91 101 Reference Ranges for Leptin: Adult Lean Subjects (18-71 years) with BMI range of 18-25: Males: 0.3-13.4 ng/mL Females: 4.7-23.7 ng/mL Adult Subjects (19-60 years) with BMI range of 25-30: Males: 1.8-19.9 ng/mL Females: 8.0-38.9 ng/mL Pediatric Reference Ranges for Leptin: 5-9.9 years: 0.6-16.8 ng/mL 10-13.9 years: 1.4-16.5 ng/mL 14-17.9 years: 0.6-24.9 ng/mL This test was developed and its analytical performance characteristics have been determined by [facility]. It has not been cleared or approved by FDA. This assay has been validated pursuant to the CLIA regulations and is used for clinical purposes. 102 Reference Range < or = 19.6 Risk: Optimal < or = 19.6 Moderate NA High >19.6 Adult cardiovascular event risk category cut points (optimal, moderate, high) are based on [facility] population data from 01/2011. This insulin assay shows strong cross-reactivity for some insulin analogs (lispro, aspart, and glargine) and much lower cross-reactivity with others (detemir, glulisine). 103 AN UPDATE OR CORRECT ION HAS BEEN MADE TO NAME 104 Vitamin D Status 25- OH Vitamin D: Deficiency: <20 ng/mL Insufficiency: 20 - 29 ng/mL Optimal: > or = 30 ng/mL For 25-OH Vitamin D testing on patients on D2-supplementation and patients for whom quantitation of D2 and D3 fractions is required, the QuestAssureD(TM) 25-OH VIT D, (D2,D3), LC/MS/MS is recommended: order code [id number] (patients >2yrs). See Note 1 Note 1 For additional information, please refer to http://education.[employer]/faq/FZP354 (This link is being provided for informational/ educational purposes only.) 105 This test was develo ped and its analytical performance characteristics have been determined by [facility]. It has not been cleared or approved by the FDA. This assay has been validated pursuant to the CLIA regulations and is used for clinical purposes. 106 Reference Range < or = 19.6 Risk: Optimal < or = 19.6 Moderate NA High >19.6 Adult cardiovascular event risk category cut points (optimal, moderate, high) are based on [facility] population data from 01/2011. This insulin assay shows strong cross-reactivity for some insulin analogs (lispro, aspart, and glargine) and much lower cross-reactivity with others (detemir, glulisine). 107 Reference Range > or = 20 Years 0.40-4.50 Ranges First trimester 0.26-2.66 Second trimester 0.55-2.73 Third trimester 0.43-2.91 108 Reference Range Low: <3.4 Borderline: 3.4-5.4 Normal: >5.4 109 Specific Level of A llergen IGE Class kU/L Specific IGE Antibody ----- --------- 0 <0.10 Absent/Undetectable 0/1 0.10-0.34 Very Low Level 1 0.35-0.69 Low Level 2 0.70-3.49 Moderate Level 3 3.50-17.4 High Level 4 17.5-49.9 Very High Level 5 50-100 Very High Level 6 >100 Very High Level The clinical relevance of allergen results of 0.10-0.34 kU/L are undetermined and intended for specialist use. Allergens denoted with a include results using one or more analyte specific reagents. In those cases, the test was developed and its analytical performance characteristics have been determined by [facility]. It has not been cleared or approved by the U.S. Food and Drug Administration. This assay has been validated pursuant to the CLIA regulations and is used for clinical purposes. 110 Specific Level of A llergen IGE Class kU/L Specific IGE Antibody ----- --------- 0 <0.10 Absent/Undetectable 0/1 0.10-0.34 Very Low Level 1 0.35-0.69 Low Level 2 0.70-3.49 Moderate Level 3 3.50-17.4 High Level 4 17.5-49.9 Very High Level 5 50-100 Very High Level 6 >100 Very High Level The clinical relevance of allergen results of 0.10-0.34 kU/L are undetermined and intended for specialist use. Allergens denoted with a include results using one or more analyte specific reagents. In those cases, the test was developed and its analytical performance characteristics have been determined by [facility]. It has not been cleared or approved by the U.S. Food and Drug Administration. This assay has been validated pursuant to the CLIA regulations and is used for clinical purposes. 111 *This test was devsameer freeman and its performance characteristics determined by [email or web address]. It has not been cleared or approved by the U.S. Food and Drug Administration. 112 Specific Level of Al lergen IGE Class kU/L Specific IGE Antibody ----- --------- 0 <0.10 Absent/Undetectable 0/1 0.10-0.34 Very Low Level 1 0.35-0.69 Low Level 2 0.70-3.49 Moderate Level 3 3.50-17.4 High Level 4 17.5-49.9 Very High Level 5 50-100 Very High Level 6 >100 Very High Level The clinical relevance of allergen results of 0.10-0.34 kU/L are undetermined and intended for specialist use. Allergens denoted with a include results using one or more analyte specific reagents. In those cases, the test was developed and its analytical performance characteristics have been determined by [facility]. It has not been cleared or approved by the U.S. Food and Drug Administration. This assay has been validated pursuant to the CLIA regulations and is used for clinical purposes. 113 *This test was [employer] and its performance characteristics determined by [email or web address]. It has not been cleared or approved by the U.S. Food and Drug Administration. 114 Specific Level of Al lergen IGE Class kU/L Specific IGE Antibody ----- --------- 0 <0.10 Absent/Undetectable 0/1 0.10-0.34 Very Low Level 1 0.35-0.69 Low Level 2 0.70-3.49 Moderate Level 3 3.50-17.4 High Level 4 17.5-49.9 Very High Level 5 50-100 Very High Level 6 >100 Very High Level The clinical relevance of allergen results of 0.10-0.34 kU/L are undetermined and intended for specialist use. Allergens denoted with a include results using one or more analyte specific reagents. In those cases, the test was developed and its analytical performance characteristics have been determined by [facility]. It has not been cleared or approved by the U.S. Food and Drug Administration. This assay has been validated pursuant to the CLIA regulations and is used for clinical purposes. 115 *This test was [employer] and its performance characteristics determined by [email or web address]. It has not been cleared or approved by the U.S. Food and Drug Administration. 116 Specific Level of Al lergen IGE Class kU/L Specific IGE Antibody ----- --------- 0 <0.10 Absent/Undetectable 0/1 0.10-0.34 Very Low Level 1 0.35-0.69 Low Level 2 0.70-3.49 Moderate Level 3 3.50-17.4 High Level 4 17.5-49.9 Very High Level 5 50-100 Very High Level 6 >100 Very High Level The clinical relevance of allergen results of 0.10-0.34 kU/L are undetermined and intended for specialist use. Allergens denoted with a include results using one or more analyte specific reagents. In those cases, the test was developed and its analytical performance characteristics have been determined by [facility]. It has not been cleared or approved by the U.S. Food and Drug Administration. This assay has been validated pursuant to the CLIA regulations and is used for clinical purposes. 117 *This test was devel oped and its performance characteristics determined by [email or web address]. It has not been cleared or approved by the U.S. Food and Drug Administration. 118 Vitamin supplementat ion within 24 hours prior to blood draw may affect the accuracy of results. This test was developed and its analytical performance characteristics have been determined by [facility]. It has not been cleared or approved by the FDA. This assay has been validated pursuant to the CLIA regulations and is used for clinical purposes. 119 This test was develo ped and its analytical performance characteristics have been determined by [facility]. It has not been cleared or approved by the FDA. This assay has been validated pursuant to the CLIA regulations and is used for clinical purposes. 120 Vitamin D Status 25- OH Vitamin D: Deficiency: <20 ng/mL Insufficiency: 20 - 29 ng/mL Optimal: > or = 30 ng/mL For 25-OH Vitamin D testing on patients on D2-supplementation and patients for whom quantitation of D2 and D3 fractions is required, the QuestAssureD(TM) 25-OH VIT D, (D2,D3), LC/MS/MS is recommended: order code 61894 (patients >2yrs). See Note 1 Note 1 For additional information, please refer to http://education.[employer] Mico.[employer]/faq/LTQ589 (This link is being provided for informational/ educational purposes only.) 121 Interpretive Guide I ntact PTH Calcium ------- Normal Parathyroid Normal Normal Hypoparathyroidism Low or Low Normal Low Hyperparathyroidism Primary Normal or High High Secondary High Normal or Low Tertiary High High Non-Parathyroid Hypercalcemia Low or Low Normal High 122 For the purpose of s creening for the presence of diabetes: <5.7% Consistent with the absence of diabetes 5.7-6.4% Consistent with increased risk for diabetes (prediabetes) > or =6.5% Consistent with diabetes This assay result is consistent with a decreased risk of diabetes. Currently, no consensus exists regarding use of hemoglobin A1c for diagnosis of diabetes in children. According to [place] Diabetes Association (ADA) guidelines, hemoglobin A1c <7.0% represents optimal control in non- diabetic patients. Different metrics may apply to specific patient populations. Standards of Medical Care in Diabetes(ADA). 123 This test was devsameero ped and its analytical performance characteristics have been determined by [facility]. It has not been cleared or approved by the FDA. This assay has been validated pursuant to the CLIA regulations and is used for clinical purposes. 124 Reference Range Females Non- 3.0-30.0 10.0-209.0 Postmenopausal 2.0-20.0 125 Reference Range Follicular Phase 2.5-10.2 Mid-cycle Peak 3.1-17.7 Luteal Phase 1.5- 9.1 Postmenopausal 23.0-116.3 126 Reference Range Follicular Phase 1.9-12.5 Mid-Cycle Peak 8.7-76.3 Luteal Phase 0.5-16.9 Postmenopausal 10.0-54.7 127 Reference Ranges for Norepinephrine, Plasma: Supine Upright Adults 112-658 pg/mL 217-1109 pg/mL 3-15 Years 1251 pg/mL or less Not available Pediatric data from J [employer]at[employer] (1993) 617:304-307. Due to stress, plasma catecholamine levels are generally unreliable in infants and small children. Urinary catecholamine assays are more reliable. This test was developed and its analytical performance characteristics have been determined by [facility]. It has not been cleared or approved by FDA. This assay has been validated pursuant to the CLIA regulations and is used for clinical purposes. 128 Vitamin supplementat ion within 24 hours prior to blood draw may affect the accuracy of results. This test was developed and its analytical performance characteristics have been determined by [facility]. It has not been cleared or approved by the FDA. This assay has been validated pursuant to the CLIA regulations and is used for clinical purposes. 129 Reference Range Low: <3.4 Borderline: 3.4-5.4 Normal: >5.4 130 Vitamin supplementat ion within 24 hours prior to blood draw may affect the accuracy of results. This test was developed and its analytical performance characteristics have been determined by [facility]. It has not been cleared or approved by the FDA. This assay has been validated pursuant to the CLIA regulations and is used for clinical purposes. 131 Reference Range > or = 20 Years 0.40-4.50 Ranges First trimester 0.26-2.66 Second trimester 0.55-2.73 Third trimester 0.43-2.91 132 This test was develo ped and its analytical performance characteristics have been determined by [facility] [place]. It has not been cleared or approved by the U.S. Food and Drug Administration. This assay has been validated pursuant to the CLIA regulations and is used for clinical purposes. 133 Specific Level of Al lergen IGE Class kU/L Specific IGE Antibody ----- --------- 0 <0.10 Absent/Undetectable 0/1 0.10-0.34 Very Low Level 1 0.35-0.69 Low Level 2 0.70-3.49 Moderate Level 3 3.50-17.4 High Level 4 17.5-49.9 Very High Level 5 50-100 Very High Level 6 >100 Very High Level The clinical relevance of allergen results of 0.10-0.34 kU/L are undetermined and intended for specialist use. Allergens denoted with a include results using one or more analyte specific reagents. In those cases, the test was developed and its analytical performance characteristics have been determined by [facility]. It has not been cleared or approved by the U.S. Food and Drug Administration. This assay has been validated pursuant to the CLIA regulations and is used for clinical purposes. 134 Reference Ranges for Epinephrine, Plasma: Supine Upright Adults <50 pg/mL <95 pg/mL 3-15 Years < or = 464 pg/mL No Reference Range Available Pediatric data from Chrom[employer]ogr (1992) 617:304-307 Due to stress, plasma catecholamine levels are generally unreliable in infants and small children. Urinary catecholamine assays are more reliable. This test was developed and its analytical performance characteristics have been determined by [facility]. It has not been cleared or approved by FDA. This assay has been validated pursuant to the CLIA regulations and is used for clinical purposes. 135 This test was develo ped and its analytical performance characteristics have been determined by [facility]. It has not been cleared or approved by FDA. This assay has been validated pursuant to the CLIA regulations and is used for clinical purposes. 136 This test was develo ped and its analytical performance characteristics have been determined by [facility]. It has not been cleared or approved by FDA. This assay has been validated pursuant to the CLIA regulations and is used for clinical purposes. 137 Elevations > 4-fold upper reference range: strongly suggestive of a pheochromocytoma(1). Elevations >1 - 4-fold upper reference range: significant but not diagnostic, may be due to medications or stress. Suggest running 24 hr urine fractionated metanephrines and serum Chromogranin A for confirmation. Reference: (1) Loly Noonan et al, Plasma Chromogranin A or Urine Fractionated Metanephrines Follow-Up Testing Improves the Diagnostic Accuracy of Plasma Fractionated Metanephrines for Pheochromocytoma. The Journal of Clinical Endocrinology and Metabolism 93 (1),91-95, 2008. For additional information, please refer to http://education.PipelineDB/faq/MetFractFree (This link is being provided for informational/educational purposes only.) This test was developed and its analytical performance characteristics have been determined by [facility]. It has not been cleared or approved by FDA. This assay has been validated pursuant to the CLIA regulations and is used for clinical purposes. 138 Results are below re portable range for this analyte, which is 10 pg/mL. Adult Reference Ranges for Dopamine, Plasma: Supine: Less than 10 pg/mL Upright: Less than 20 pg/mL Pediatric Reference Ranges for Dopamine, Plasma: 3-15 Years: Supine: Less than 60 pg/mL Upright: Not Available Pediatric data from J [employer]ogr (1993) 617:304-307. This test was developed and its analytical performance characteristics have been determined by [facility]. It has not been cleared or approved by FDA. This assay has been validated pursuant to the CLIA regulations and is used for clinical purposes. 139 Season, race, dietar y intake, and treatment affect the concentration of [id number] D. Values may decrease during winter months and increase during summer months. Values 20-29 ug/L may indicate Vitamin D insufficiency and values <20 ug/L may indicate Vitamin D deficiency. Vitamin D determination is routinely performed by an immunoassay specific for 25 hydroxyvitamin D3. If an individual is on vitamin D2 (ergocalciferol) supplementation, please specify 25 OH vitamin D2 and D3 level determination by LCMSMS test [id number]. 140 HIV-1 p24 Ag & HIV-1 /HIV-2 Ab Not Detected 141 No COVID-19 antibodi es detected. Patients with recent COVID-19 vaccination or recent symptom onset from COVID-19 infection may not produce sufficient levels of detectable antibodies. Immunocompromised COVID-19 patients may take longer to develop antibodies. 142 Qualitative screen f or IgG, IgM and IgA antibodies to COVID-19 (SARS-CoV-2) spike receptor binding domain (RBD) protein. COVID-19 spike RBD antibodies may be elevated due to vaccination, or a past or current COVID-19 infection. The qualitative screen for IgG, IgM and IgA COVID-19 spike RBD antibodies is performed on the [employer], and this test is approved by the FDA under the Emergency Use Authorization (EUA). Negative results do not rule out COVID-19 infection. Results from antibody testing should not be used as the sole basis to diagnose or exclude SARS-CoV-2 infection or to inform infection status. COVID-19 PCR test should be ordered if current infection is suspected. False positive results may occur in rare cases due to cross-reacting antibodies. Testing performed by [facility], [facility], [address] [place] [address], [address], [place] [address] 143 Assay performance ch aracteristics have not been established for newborns, infants, and children 144 This D-dimer assay i s intended for use in conjunction with a clinical pretest probability assessment model to exclude pulmonary embolism (PE) and deep venous thrombosis (DVT) in outpatients suspected of PE or DVT. The cut-off value is 0.5 ug/mL FEU. 145 Borderline high: 150 -199 mg/dl High: 200-499 mg/dl Very high: >499 mg/dl Non Fasting 146 Desirable: <100 mg/d l 147 Reference range show n and results flagged as abnormal are for the outpatient, non acute settings. Establishing a baseline value for each individual patient is useful for follow-up. Suggested inpatient cut points for confirming diagnosis of CHF in an acute setting are: >450 pg/mL (age 18 to less than 50) >900 pg/mL (age 50 to less than 75) >1800 pg/mL (75 yrs and older) An inpatient or emergency department NT-proPBNP <300 pg/mL effectively rules out acute CHF, with 99% negative predictive value. 148 SARS-CoV2 (COVID-19) RNA not detected, presumed negative. 149 This test should be ordered for the detection of SARS-CoV-2 in individuals who meet SARS-CoV-2 clinical and/or epidemiological criteria. Test performance is unknown in asymptomatic patients. This test is for in vitro diagnostic use under the FDA EUA for laboratories certified under CLIA to perform high complexity testing. This test has not been FDA cleared or approved. A negative result does not rule out the presence of PCR inhibitors in the specimen or target RNA in concentration below the limit of detection for the assay. The possibility of a false negative should be considered if the patient's recent exposure or clinical presentation suggests COVID-19. This test was validated by the [facility]. This laboratory is certified under the Clinical Laboratory Improvement Amendments of 1988 (CLIA-88) as qualified to perform high complexity laboratory testing. Testing was performed using the [employer]ptima Sars-CoV-2 Assay on the [employer] Instrument System. Additional information about this Emergency Use Authorization (Eua) assay can be found via the Lab Guide. 150 Test received-See re flex to Iddl test Sars CoV2 (Covid-19) Virus RT-PCR 151 This test is for scr eening purposes. Results should be interpreted along with the clinical picture. Confirmation testing is available if warranted by ordering [id number], HCG Quantitative . Procedures Date Code Description Status 02/18/2024 Therapeutic, Prophylactic Or Diagnostic Injection Subq/Im Completed 02/18/2024 J3420 Injection Vitami n B-12 Cyanocobalamin To 1000 mcg (PT Brought) Completed 02/07/2024 Therapeutic, Prophylactic Or Diagnostic Injection Subq/Im Completed 02/07/2024 J3420 Injection Vitami n B-12 Cyanocobalamin To 1000 mcg (PT Brought) Completed 01/28/202467949 Therapeutic, Prophylactic Or Diagnostic Injection Subq/Im Completed 01/28/2024 J3420 Injection Vitami n B-12 Cyanocobalamin To 1000 mcg (PT Brought) Completed 01/10/2024 J3420 Injection Vitami n B-12 Cyanocobalamin To 1000 mcg (PT Brought) Completed 01/10/202490351 Therapeutic, Prophylactic Or Diagnostic Injection Subq/Im Completed 12/07/2023 J3420 Injection Vitami n B-12 Cyanocobalamin To 1000 mcg (PT Brought) Completed 12/07/202320584 Therapeutic, Prophylactic Or Diagnostic Injection Subq/Im Completed 11/26/2023 J3420 Injection Vitami n B-12 Cyanocobalamin To 1000 mcg (PT Brought) Completed 11/26/2023 Therapeutic, Prophylactic Or Diagnostic Injection Subq/Im Completed 10/19/2023 J3420 Injection Vitami n B-12 Cyanocobalamin To 1000 mcg (PT Brought) Completed 10/19/202368891 Therapeutic, Prophylactic Or Diagnostic Injection Subq/Im Completed 10/08/2023 J3420 Injection Vitami n B-12 Cyanocobalamin To 1000 mcg (PT Brought) Completed 10/08/202329639 Therapeutic, Prophylactic Or Diagnostic Injection Subq/Im Completed 09/27/2023 J3420 Injection Vitami n B-12 Cyanocobalamin To 1000 mcg (PT Brought) Completed 09/27/202323696 Therapeutic, Prophylactic Or Diagnostic Injection Subq/Im Completed 09/18/2023 J3420 Injection Vitami n B-12 Cyanocobalamin To 1000 mcg (PT Brought) Completed 09/18/202369692 Therapeutic, Prophylactic Or Diagnostic Injection Subq/Im Completed 09/11/2023 J3420 Injection Vitami n B-12 Cyanocobalamin To 1000 mcg (PT Brought) Completed 09/11/2023 11836 Therapeutic, Prophylactic Or Diagnostic Injection Subq/Im Completed 09/03/2023 J3420 Injection Vitami n B-12 Cyanocobalamin To 1000 mcg (PT Brought) Completed 08/27/2023 J3420 Injection Vitamin B-12 Cyano cobalamin To 1000 mcg (Charge) Completed 08/27/2023 71539 Therapeutic, Prophylactic Or Diagnostic Injection Subq/Im Completed 08/07/2023 G2211 Complex e/m visi t add on Completed 07/17/2023 J3420 Injection Vitamin B-12 Cyano cobalamin To 1000 mcg (Charge) Completed 07/17/202387451 Therapeutic, Prophylactic Or Diagnostic Injection Subq/Im Completed 06/18/2023 J3420 Injection Vitamin B-12 Cyano cobalamin To 1000 mcg (Charge) Completed 06/18/202341856 Therapeutic, Prophylactic Or Diagnostic Injection Subq/Im Completed 06/04/2023 G2212 Prolong outpt/of fice vis Completed 06/04/2023 G221 Complex e/m visi t add on Completed 05/14/202385572 Therapeutic, Prophylactic Or Diagnostic Injection Subq/Im Completed 05/14/2023 J3420 Injection Vitamin B-12 Cyano cobalamin To 1000 mcg (Charge) Completed 05/08/2023 J3420 Injection Vitamin B-12 Cyano cobalamin To 1000 mcg (Charge) Completed 05/08/202357773 Therapeutic, Prophylactic Or Diagnostic Injection Subq/Im Completed 05/01/2023 G221 Complex e/m visi t add on Completed 04/30/2023 J3420 Injection Vitamin B-12 Cyano cobalamin To 1000 mcg (Charge) Completed 04/30/2023 10040 Therapeutic, Prophylactic Or Diagnostic Injection Subq/Im Completed 04/23/2023 J3420 Injection Vitamin B-12 Cyano cobalamin To 1000 mcg (Charge) Completed 04/23/2023 15791 Therapeutic, Prophylactic Or Diagnostic Injection Subq/Im Completed 04/17/2023 J3420 Injection Vitamin B-12 Cyano cobalamin To 1000 mcg (Charge) Completed 04/17/2023 10555 Therapeutic, Prophylactic Or Diagnostic Injection Subq/Im Completed 04/09/2023 47904 Therapeutic, Prophylactic Or Diagnostic Injection Subq/Im Completed 04/03/2023 G2212 Prolong outpt/of fice vis Completed 04/03/2023 G2211 Complex e/m visi t add on Completed 03/29/2023 J3420 Injection Vitamin B-12 Cyano cobalamin To 1000 mcg (Charge) Completed 03/29/2023 [id number] Therapeutic, Prophylactic Or Diagnostic Injection Subq/Im Completed 02/26/2023 J3420 Injection Vitamin B-12 Cyano cobalamin To 1000 mcg (Charge) Completed 02/26/2023 67981 Therapeutic, Prophylactic Or Diagnostic Injection Subq/Im Completed 02/07/2023 J3420 Injection Vitamin B-12 Cyano cobalamin To 1000 mcg (Charge) Completed 02/07/2023 50483 Therapeutic, Prophylactic Or Diagnostic Injection Subq/Im Completed 01/08/2023 J3420 Injection Vitamin B-12 Cyano cobalamin To 1000 mcg (Charge) Completed 12/22/2022 J3420 Injection Vitamin B-12 Cyano cobalamin To 1000 mcg (Charge) Completed 12/22/2022 [id number] Therapeutic, Prophylactic Or Diagnostic Injection Subq/Im Completed 12/05/2022 J3420 Injection Vitamin B-12 Cyano cobalamin To 1000 mcg (Charge) Completed 12/05/2022 89811 Therapeutic, Prophylactic Or Diagnostic Injection Subq/Im Completed 11/17/2022 J3420 Injection Vitamin B-12 Cyano cobalamin To 1000 mcg (Charge) Completed 11/17/2022 [id number] Therapeutic, Prophylactic Or Diagnostic Injection Subq/Im Completed 11/03/2022 J3420 Injection Vitamin B-12 Cyano cobalamin To 1000 mcg (Charge) Completed 10/16/2022 J3420 Injection Vitamin B-12 Cyano cobalamin To 1000 mcg (Charge) Completed 10/16/2022 71023 Therapeutic, Prophylactic Or Diagnostic Injection Subq/Im Completed 09/22/2022 J3420 Injection Vitamin B-12 Cyano cobalamin To 1000 mcg (Charge) Completed 09/01/2022 J3420 Injection Vitamin B-12 Cyano cobalamin To 1000 mcg (Charge) Completed 09/01/2022 [id number] Therapeutic, Prophylactic Or Diagnostic Injection Subq/Im Completed 08/11/2022 J3420 Injection Vitamin B-12 Cyano cobalamin To 1000 mcg (Charge) Completed 08/11/2022 04320 Therapeutic, Prophylactic Or Diagnostic Injection Subq/Im Completed 08/11/2022 G2212 Prolong outpt/of fice vis Completed 05/23/2022 G2212 Prolong outpt/of fice vis Completed 05/23/2022 G0447 [id number] avioral Counseling For Obesity, 15 Minutes Completed 01/06/2022 J3420 Injection Vitamin B-12 Cyano cobalamin To 1000 mcg (Charge) Completed 01/06/2022 01655 Therapeutic, Prophylactic Or Diagnostic Injection Subq/Im Completed 12/21/2021 J3420 Injection Vitamin B-12 Cyano cobalamin To 1000 mcg (Charge) Completed 12/21/2021 42195 Therapeutic, Prophylactic Or Diagnostic Injection Subq/Im Completed 11/14/2021 J3420 Injection Vitamin B-12 Cyano cobalamin To 1000 mcg (Charge) Completed 11/14/2021 16291 Therapeutic, Prophylactic Or Diagnostic Injection Subq/Im Completed 10/28/2021 J3420 Injection Vitamin B-12 Cyano cobalamin To 1000 mcg (Charge) Completed 08/24/2021 J3420 Injection Vitamin B-12 Cyano cobalamin To 1000 mcg (Charge) Completed 08/24/2021 56884 Therapeutic, Prophylactic Or Diagnostic Injection Subq/Im Completed 08/10/2021 J3420 Injection Vitamin B-12 Cyano cobalamin To 1000 mcg (Charge) Completed 07/13/2021 93913 Therapeutic, Prophylactic Or Diagnostic Injection Subq/Im Completed 07/13/2021 J3420 Injection Vitamin B-12 Cyano cobalamin To 1000 mcg (Charge) Completed 06/29/2021 J3420 Injection Vitamin B-12 Cyano cobalamin To 1000 mcg (Charge) Completed 06/29/2021 62802 Therapeutic, Prophylactic Or Diagnostic Injection Subq/Im Completed 06/15/2021 J3420 Injection Vitamin B-12 Cyano cobalamin To 1000 mcg (Charge) Completed 06/15/2021 99129 Therapeutic, Prophylactic Or Diagnostic Injection Subq/Im Completed 05/27/2021 J3420 Injection Vitamin B-12 Cyano cobalamin To 1000 mcg (Charge) Completed 05/27/2021 16808 Therapeutic, Prophylactic Or Diagnostic Injection Subq/Im Completed 05/03/2021 J3420 Injection Vitamin B-12 Cyano cobalamin To 1000 mcg (Charge) Completed 05/03/2021 67266 Therapeutic, Prophylactic Or Diagnostic Injection Subq/Im Completed 03/08/2021 J3420 Injection Vitamin B-12 Cyano cobalamin To 1000 mcg (Charge) Completed 03/08/2021 06325 Therapeutic, Prophylactic Or Diagnostic Injection Subq/Im Completed 02/22/2021 J3420 Injection Vitamin B-12 Cyano cobalamin To 1000 mcg (Charge) Completed 02/22/2021 06775 Therapeutic, Prophylactic Or Diagnostic Injection Subq/Im Completed 01/17/2021 97272 Therapeutic, Prophylactic Or Diagnostic Injection Subq/Im Completed 01/17/2021 J3420 Injection Vitamin B-12 Cyano cobalamin To 1000 mcg (Charge) Completed 12/31/2020 J3420 Injection Vitamin B-12 Cyano cobalamin To 1000 mcg (Charge) Completed 12/31/2020 73010 Therapeutic, Prophylactic Or Diagnostic Injection Subq/Im Completed 12/14/2020 J3420 Injection Vitamin B-12 Cyano cobalamin To 1000 mcg (Charge) Completed 12/14/2020 30501 Therapeutic, Prophylactic Or Diagnostic Injection Subq/Im Completed 11/30/2020 J3420 Injection Vitamin B-12 Cyano cobalamin To 1000 mcg (Charge) Completed 11/30/2020 28313 Therapeutic, Prophylactic Or Diagnostic Injection Subq/Im Completed 11/15/2020 G8510 Negative Screen For Clinical Depression Using A Standardized Too Completed 11/15/2020 G0444 Annual Depression Screening, 15 Minutes Completed 11/09/2020 J3420 Injection Vitamin B-12 Cyano cobalamin To 1000 mcg (Charge) Completed 11/09/2020 41266 Therapeutic, Prophylactic Or Diagnostic Injection Subq/Im Completed 11/03/2020 G8510 Negative Screen For Clinical Depression Using A Standardized Too Completed 11/03/2020 G0444 Annual Depression Screening, 15 Minutes Completed 10/26/2020 J3420 Injection Vitamin B-12 Cyano cobalamin To 1000 mcg (Charge) Completed 10/26/2020 60707 Therapeutic, Prophylactic Or Diagnostic Injection Subq/Im Completed 10/11/2020 31534 Therapeutic, Prophylactic Or Diagnostic Injection Subq/Im Completed 10/11/2020 J3420 Injection Vitamin B-12 Cyano cobalamin To 1000 mcg (Charge) Completed 09/22/2020 J3420 Injection Vitamin B-12 Cyano cobalamin To 1000 mcg (Charge) Completed 09/22/2020 09092 Therapeutic, Prophylactic Or Diagnostic Injection Subq/Im Completed 09/08/2020 J3420 Injection Vitamin B-12 Cyano cobalamin To 1000 mcg (Charge) Completed 09/08/2020 G0447 [facility] avioral Counseling For Obesity, 15 Minutes Completed 09/08/2020 99815 Therapeutic, Prophylactic Or Diagnostic Injection Subq/Im Completed 08/25/2020 J3420 Injection Vitamin B-12 Cyano cobalamin To 1000 mcg (Charge) Completed 08/25/2020 21337 Therapeutic, Prophylactic Or Diagnostic Injection Subq/Im Completed 08/09/2020 J3420 Injection Vitamin B-12 Cyano cobalamin To 1000 mcg (Charge) Completed 08/09/2020 37184 Therapeutic, Prophylactic Or Diagnostic Injection Subq/Im Completed 07/28/2020 J3420 Injection Vitamin B-12 Cyano cobalamin To 1000 mcg (Charge) Completed 07/28/2020 75452 Therapeutic, Prophylactic Or Diagnostic Injection Subq/Im Completed 07/12/2020 J3420 Injection Vitamin B-12 Cyano cobalamin To 1000 mcg (Charge) Completed 07/12/2020 75104 Therapeutic, Prophylactic Or Diagnostic Injection Subq/Im Completed 07/06/2020 28329 Electrocardiogram Complete C ompleted 04/10/2020 51969 Electrocardiogram Complete C ompleted Medical Devices Description No Information Available Encounters Type Date Location Provider Dx Diagnosis Office Visit 12/28/2023 10:30a Main Office Juliocesar June MD N95.1 Menopausal and female climacteric states N95.9 Unspecified menopaus al and perimenopausal disorder 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 Dr. Amarilis Austin requested. Please evaluate and treat as appropriate. Thank you Created [address] [address] [phone] [facility] Multiple moles with ? Atypia on some of the most noted on the back. Created [address] [place] [address] [phone] Tiffany Dinero MD For routine Pap an d pelvic exam. No abnormal history or physical examination findings. Created [address] [facility] [address] [place] [address] [phone] [facility] Mole check. Created [address] [facility] [address] [place] [address] [phone] Tiffany Dinero MD Heavy menses, with symptomatic iron deficiency. Please help evaluate for alternatives for treatment-surgical and nonsurgical. Dr. Tiffany Dinero requested. Created [address] [facility] [address] [place] [address] [phone] Feroz Balderas MD Evaluate for food al lergies, previous anaphylaxis. Created [address] [facility] [address] [place] [address] [phone] Tiffany Dinero MD Iron deficiency in the setting of menometrorrhagia. Serum ferritin 22 mcg/mL. Created [address] [facility] [address] [place] [address] [phone]
--- OUTSIDE RECORDS SUMMARY | 2024-04-26 11:43 | XMS_ITS | Encounter Summary ---
Author Organization [facility] Address [address] [place] [address] Care Team Providers Care Digital Producer Name Role Phone Corine Bullard PA-C Primary Care Provider + [phone] Corine Bullard PA-C Unavailable [phone] Tiffany Dinero MD Unavailable + Juliocesar June MD Primary Care Provider [phone] Tiffany Dinero MD Unavailable + Tiffany Dinero MD Unavailable + [place] Rangel MD Unavailable [phone] Encounter Details Date Type Department Care Team (Late st Contact Info) Description 09/22/2021 [facility] [address] [address] Rika Casper, BRY Social History Tobacco Use Types Packs/Day Years Used Date Smoking Tobacco: Never Smokeless Tobacco: Never Alcohol Use Standard Drinks/Week Comments No 0 (1 standard drink = 0.6 oz pur e alcohol) PHQ-2 Answer Date Recorded PHQ-2 Score 0 09/20/2021 Comments No Sex and Gender Information Value Date Recorded Sex Assigned at Female 05/15/2020 4:50 PM CDT Legal Sex Female 4:19 AM DAILY RELEASE AND DUPE PRINTER Gender Identity Female 05/15/2020 4:50 PM CDT Sexual Orientation Straight 05/15/2020 4: 50 PM CDT COVID-19 Exposure Response Date Recorded In the last 10 days, have yo u been in contact with someone who was confirmed or suspected to have Coronavirus/COVID-19? No / Unsure 09/20/2021 10:52 AM CDT documented as of this encounter Plan of Treatment Not on file documented as of this encounter Visit Diagnoses Not on filedocumented in this encounter Additional Health Concerns Infection Onset Date Last Indicated Resolved Time Rule Out COVID-19 11/15/2022 11/15/2022 11/15/2022 6:00 PM CDT Rule Out COVID-19 01/16/2023 01/16/2023 01/16/2023 5:19 PM DAILY RELEASE AND DUPE PRINTER Rule Out COVID-19 02/14/2023 02/14/2023 02/14/2023 6:41 PM DAILY RELEASE AND DUPE PRINTER Rule Out COVID-19 02/27/2023 02/27/2023 02/28/2023 12:40 AM DAILY RELEASE AND DUPE PRINTER COVID-19 02/27/2023 02/27/2023 03/20/2023 11:3 9 PM DAILY RELEASE AND DUPE PRINTER Rule Out COVID-19 08/22/2023 08/22/2023 08/22/2023 1:50 PM CDT Assessment Noted Time PHQ-9 Depression Total Score: 1 09/21/19 22 11:46 AM CDT documented as of this encounter Care Teams Digital Producer Relationship Specialty Start Date End Date Corine Bullard PA-C PCP - General Physician Level Vial Inside Grinder 10/08/14 11/14/22 Juliocesar June MD [address] [address] PCP - General Internal Medicine 11/15/22 Corine Bullard PA-C Assigned PCP 07/29/17 08/11/23 Tiffany Dinero MD [address] [facility] [address] [place] [address] Assigned OBGYN Provider 09/24/21 2// 4 Tiffany Dinero MD [address] [facility] [address] [facility] [address] [place] [address] catalogue maker 08/13/23 Tiffany Dinero MD [address] [facility] [address] [place] [address] Assigned OBGYN Provider 09/11/23 [place] Rangel MD [address] [facility] [address] [place] [address] Assigned PCP 02/11/24 documented as of this encounter
--- OUTSIDE RECORDS SUMMARY | 2024-04-26 11:43 | XMS_ITS | Encounter Summary ---
Author Organization [facility] Address [address] [place] [address] Care Team Providers Care Matchbook Assembler Name Role Phone Corine Bullard PA-C Primary Care Provider + [phone] Corine Bullard PA-C Unavailable [phone] Mery Reyna RN Unavailable Unavailable Tiffany Dinero MD Unavailable + Juliocesar June MD Primary Care Provider [phone] Tiffnay Dinero MD Unavailable + Tiffany Dinero MD Unavailable + [place] Rangel MD Unavailable [phone] Encounter Details Date Type Department Care Team (Late st Contact Info) Description 03/04/2019 [facility] Advice [address] [address] Manjula Carcamo, [facility] Social History Tobacco Use Types Packs/Day Years Used Date Smoking Tobacco: Never Smokeless Tobacco: Never Alcohol Use Standard Drinks/Week Comments No 0 (1 standard drink = 0.6 oz pur e alcohol) PHQ-2 Answer Date Recorded PHQ-2 Score 0 02/27/2018 Comments No Sex and Gender Information Value Date Recorded Sex Assigned at Female 05/15/2020 4:50 PM CDT Legal Sex Female 4:19 AM MAMMAL CONTROL AGENT Gender Identity Female 05/15/2020 4:50 PM CDT [...] Out COVID-19 04/10/2020 04/10/2020 04/11/2020 3:27 PM MAMMAL CONTROL AGENT Rule Out COVID-19 06/14/2021 06/14/2021 06/14/2021 10:34 PM CDT Rule Out COVID-19 11/15/2022 11/15/2022 11/15/2022 6:00 PM CDT Rule Out COVID-19 01/16/2023 01/16/2023 01/16/2023 5:19 PM MAMMAL CONTROL AGENT Rule Out COVID-19 02/14/2023 02/14/2023 02/14/2023 6:41 PM MAMMAL CONTROL AGENT Rule Out COVID-19 02/27/2023 02/27/2023 02/28/2023 12:40 AM MAMMAL CONTROL AGENT COVID-19 02/27/2023 02/27/2023 03/20/2023 11:3 9 PM MAMMAL CONTROL AGENT Rule Out COVID-19 08/22/2023 08/22/2023 08/22/2023 1:50 PM CDT Assessment Noted Time PHQ-9 Depression Total Score: 2 01/26/20 19 8:04 AM MAMMAL CONTROL AGENT documented as of this encounter Care Teams Matchbook Assembler Relationship Specialty Start Date End Date Corine Bullard PA-C PCP - General Physician Bus System Operator 10/08/14 11/14/22 Juliocesar June MD [address] [address] PCP - General Internal Medicine 11/15/22 Corine Bullard PA-C Assigned PCP 6/10/18 6/22/24 Mery Reyna, RN Personal Advocate & Liaison (PAL) Nurse 05/24/20 06/28/20 Tiffany Dinero MD [address] [place] [address] [place] [address] Assigned OBGYN Provider 09/24/21 4 Tiffany Dinero MD [address] [place] [address] [place] [address] loan review officer 08/13/23 Tiffany Dinero MD [address] [facility] [place] [address] [place] [address] Assigned OBGYN Provider 09/11/23 [place] Rangel MD [address] [facility] [address] [place] [address] Assigned PCP 02/11/24 documented as of this encounter
[2024-04-26 11:58] LABS: Magnesium* 2.3 mg/dL (1.5-2.6)
[2024-04-26] MEDS: 0.9 % SODIUM CHLORIDE 1000 ml 1,000 ML IV (13:10)
[2024-04-26 13:39] LABS: Vitamin B12* > 1000 pg/mL (243-894)
[2024-04-27 07:35] LABS: Vitamin D 25 Hydroxy* 79 ng/mL (30-80)
[2024-04-30 14:35] LABS: Vitamin B6 (Pyridoxal 5-Phos) 26.9 nmol/L (20.0-125.0)
== END 2024-04-26 14:35 | disposition home or self-care (01) ==
PROVIDERS: Emergency Provider Family Medicine; PCP Family Medicine
DX: G62.9 Polyneuropathy, unspecified (principal); R53.81 Other malaise; R53.83 Other fatigue
CPT/HCPCS: 36415; 80048; 82306; 82607; 83735; 84207; 84443; 84484; 85025; 93005; 96361; 96374; 99284; A9270; J7030

== ENCOUNTER 2024-05-19 08:12 | Day surgery (SDC) | payer BC, SELFPAY ==
[2024-05-19] VITALS (21 sets, daily range): BP systolic 134–166; BP diastolic 78–106; PULSE 59–99; RESP 10–16; TEMP 36.3–37; O2SAT 90–99; BMI 44.9
[2024-05-19] MEDS: LACTATED RINGERS 1000 ML 1,000 ML 100 ML IV (08:50)
[2024-05-19] MEDS: SODIUM CHLORIDE 0.9 % (FLUSH) 10 ML SYRINGE IVF (08:50)
[2024-05-19] MEDS: SCOPOLAMINE 1 MG/3 DAY PATCH 1 PATCH TRANSDERMA (08:50)
--- NOTE | 2024-05-19 09:57 | W.PM.H&PU ---
History & Physical Update History & Physical Update H&P Reviewed and patient assessed: The following changes are noted below H&P Updates: I was able to obtain the patient's records since our last visit. She underwent an EGD and colonoscopy last year. She was found to have erosive gastritis and was advised to take a PPI. She was negative for H pylori. Colonoscopy showed a 10 mm polyp in the transverse colon. HIDA scan done on 04/19/2023 showed normal ejection fraction of 43%. She underwent a normal stress test on 04/11/2023.
--- NOTE | 2024-05-19 09:58 | P.GSOP_ITS ---
Operative Note Date of procedure: 05/19/24 Pre-op diagnosis: 1. Gallbladder polyps 2. Biliary colic symptoms Post-op diagnosis: Same Type of Procedure: Laparoscopic cholecystectomy Indications: The patient is a 49-year-old female with a 1.5 year history of right upper quadrant pain. Initially it was difficult for her to discern exactly the timing of her discomfort, however it began to come on after eating. She also complained additional GI symptoms including early satiety, bloating and constipation. Workup included cardiac workup which was negative, HIDA scan which showed an ejection fraction of 43%, upper endoscopy which showed gastropathy but was negative for H pylori. She had a more recent ultrasound which showed a small 2 mm polyp versus nonshadowing stone in her gallbladder. After discussion of options, she elected to proceed with cholecystectomy. Procedure Description: After discussing the risks and benefits of the procedure, the patient signed informed consent.? The operative site was marked and the patient was brought to the operating room and placed on the operating table in supine position.? Care was taken to pad the patient's pressure points.?? The patient was then intubated by anesthesia.?? The operative site was then prepped and draped in the usual sterile fashion.? A time-out was then performed. Entrance to the abdomen was gained via a 5 mm Visiport in the left upper quadrant. The abdomen was insufflated and briefly surveyed for signs of injury. There was none. A 10 mm umbilical port was placed as well as 2 working ports along the right costal margin, all under direct vision. The patient was then placed in reverse Trendelenburg position with the right side up. The gallbladder fundus was grasped and retracted cephalad. A small amount of dissection was needed to free omental adhesions from the gallbladder. The infundibulum was grasped. A combination of hook cautery and blunt dissection was used to carefully dissect out the cystic duct and artery until they could clearly be seen entering the gallbladder without any intervening structures. The gallbladder was dissected off the cystic plate to achieve the critical view. Once this was achieved the cystic duct and artery were each clipped with 2 clips proximally and 1 clip distally and transected with the scissors. The gallbladder was then taken off of the liver bed and removed from the abdomen using an Endo- Catch bag. The gallbladder bed was surveyed for hemostasis which appeared excellent. A small amount of bile which had spilled was suctioned from the abdomen. The umbilical port fascia was closed with 0 Vicryl using a Edenilson- Gab device. The remaining ports were then removed and the abdomen desufflated. The skin was closed with absorbable subcuticular suture. Sterile dressings were applied. Instrument sponge and needle counts were correct at the end of the case. The patient was then woken and transferred to the PACU in stable condition. The patient tolerated the procedure well. Findings: None Anesthesia: GETA Surgeon: Savi Middleton MD Estimated blood loss (mL): 5 Specimen: Gallbladder Condition: stable Disposition: PACU
[2024-05-19] MEDS: CLINDAMYCIN 900 MG/50 ML-D5W IVPB (10:12)
[2024-05-19] MEDS: BUPIVACAINE 0.25% 30 ML INJECTION (10:24)
[2024-05-19] MEDS: fentaNYL 100 MCG/2 ML inj 50 MCG IVP ×2 (11:22→11:29)
--- NOTE | 2024-05-19 11:26 | P.ANES_ITS ---
Anesthesia Charges Start Date/Time Anesthesia Start Date: 05/19/24 Anesthesia Start Time: 09:52 Stop Date/Time Anesthesia Stop Date: 05/19/24 Anesthesia Stop Time: 11:20 Coding CPT Codes CPT Codes: ANESTH SURG UPPER ABDOMEN - 65742 ([id number]) P3 - PATIENT W/SEVERE SYS DISEASE, QZ - PRESS OPERATOR HEAVY DUTY SVC W/O ANIMAL DOCTOR BY
--- NOTE | 2024-05-19 11:26 | W.ANESCHARGE ---
Anesthesia Charges Start Date/Time Anesthesia Start Date: 05/19/24 Anesthesia Start Time: 09:52 Stop Date/Time Anesthesia Stop Date: 05/19/24 Anesthesia Stop Time: 11:20 Coding CPT Codes CPT Codes: ANESTH SURG UPPER ABDOMEN - 46459 ([id number]) P3 - PATIENT W/SEVERE SYS DISEASE, QZ - STEEL CHECKER SVC W/O HAT BAND ATTACHER BY
[2024-05-19] MEDS: METOCLOPRAMIDE HCL 5 MG/ML INJ 10 MG IVP (11:42)
[2024-05-19] MEDS: HYDROmorphone 0.5 mg/0.5 ml inj IVP (11:49)
[2024-05-19] MEDS: 0.9 % SODIUM CHLORIDE 500 ML 500 ML IV (14:00)
--- NOTE | 2024-05-19 15:29 | SUR.PHASEII ---
YULI and Dr. Middleton in to see patient. Pt report My legs and my body feel heavy. pt states she feels dizzy and lightheaded when sitting up. RN and YULI Educated pt and on side effects of scopolamine patch. Pt agreed to removed patch. Pt stood with a walker by the bed. Pt states she was dizzy and shaky when standing up. I asked patient if she feels like she could pass out and she states yes I want to lay down. Pt sipping on coke and eating crackers.
--- NOTE | 2024-05-19 16:36 | SUR.PHASEII ---
Pt tried to get up again at 4 pm and was able to successfully transfer to the chair. Feeling more awake and alert since scopolamine patch removed and other anesthesia meds having more time to wear off. Additional 500 cc bag of NS infused as well. Pt worried about her O2 sat dropping at home. Reassured pt and spouse that she was OK to go home by our standpoint but could stay overnight if she felt more comfortable. Pt has risk factors for sleep apnea and states she does snore at night. Pt and spouse discussed options and decided to go home. They have a pulse oximeter to use at home and pt feeling more awake. O2 sats 95-96 percent on room air when sitting in chair. D/c to home via wheelchair.
== END 2024-05-19 16:44 | disposition home or self-care (01) ==
PROVIDERS: PCP Family Medicine; Visit Provider Surgery
PROC: 0FT44ZZ Resection of Gallbladder, Percutaneous Endoscopic Approach (ICD-10-PCS; CPT 47562; principal; 2024-05-19 09:30)
DX: K82.4 Cholesterolosis of gallbladder (principal); K83.8 Other specified diseases of biliary tract; G62.9 Polyneuropathy, unspecified
CPT/HCPCS: 47562; 00790; 81025; 88304; A9270; J0330; J0665; J0736; J1100; J1171; J1630; J1885; J2250; J2405; J2704; J2710; J2765; J3010; J3490; J7030; J7120

== ENCOUNTER 2024-07-07 14:10 | Outpatient (CLI) | payer BC, SELFPAY | END 2024-07-07 14:11 | disposition home or self-care (01) | PROVIDERS: PCP Family Medicine; Visit Provider Family Medicine | DX: M13.89 Other specified arthritis, multiple sites (principal) | CPT/HCPCS: 80053; 83690; 86140; 86618 ==

== ENCOUNTER 2024-07-21 14:21 | Outpatient (CLI) | payer BC, SELFPAY | END 2024-07-21 14:22 | disposition home or self-care (01) | PROVIDERS: PCP Family Medicine; Visit Provider Family Medicine | DX: E78.5 Hyperlipidemia, unspecified (principal); E03.9 Hypothyroidism, unspecified | CPT/HCPCS: 80061; 84443 ==

== ENCOUNTER 2024-08-25 12:58 | Outpatient (CLI) | payer BC, SELFPAY | END 2024-08-25 12:59 | disposition home or self-care (01) | LOC: NFLDREF 08-27 01:56 | PROVIDERS: PCP Family Medicine; Referring Provider Family Medicine; Visit Provider Family Medicine | DX: R70.0 Elevated erythrocyte sedimentation rate (principal); E53.8 Deficiency of other specified B group vitamins; R73.03 Prediabetes; G62.9 Polyneuropathy, unspecified; M13.80 Other specified arthritis, unspecified site; Z86.39 Personal history of other endocrine, nutritional and metabolic disease; Z79.899 Other long term (current) drug therapy | CPT/HCPCS: 80053; 82306; 82550; 82607; 83735; 86038; 86039; 86200; 86431 ==

== ENCOUNTER 2024-08-28 13:57 | Outpatient (CLI) | payer BC, SELFPAY | END 2024-08-28 13:58 | disposition home or self-care (01) | LOC: FRMREF 13:58 | PROVIDERS: PCP Family Medicine; Visit Provider Family Medicine | DX: R74.01 Elevation of levels of liver transaminase levels (principal); R76.8 Other specified abnormal immunological findings in serum; R17 Unspecified jaundice; M13.80 Other specified arthritis, unspecified site | CPT/HCPCS: 81291 ==

== ENCOUNTER 2025-01-21 10:00 | Outpatient (CLI) | payer BC, SELFPAY ==
--- NOTE | 2025-01-21 10:15 | CRLHL7_ITS ---
For Patients: As a result of the Century Cures Act, medical imaging exams and procedure reports are released immediately into your electronic medical record. You may view this report before your referring provider. If you have questions, please contact your health care provider. INDICATION: Pain. Unspecified TMJ disorder. TECHNIQUE: Noncontrast MRI of the bilateral temporomandibular joints.Parasagittal open mouth and closed mouth images acquired.1.5 carissa MRI scanner. COMPARISON: No prior. FINDINGS: Right temporomandibular joint: Normal biconcave morphology of the temporomandibular joint articular disc. The disc appears normally positioned in the open mouth and closed mouth positions. Normal anterior translation of the mandibular condyle with mouth opening. Joint space maintained. No effusion. No atrophy of the muscles of mastication. Left temporomandibular joint: Mild degeneration of the left temporomandibular joint articular disc. Disc overall maintains a biconcave morphology. The disc appears normally positioned in the open mouth and closed mouth positions. Normal anterior translation of the mandibular condyle with mouth opening. Joint space maintained. No effusion. No atrophy of the muscles of mastication. Other findings: There is opacification of mastoid air cells bilaterally suggesting mastoiditis. There is also mucosal thickening involving the maxillary sinuses, ethmoid air cells and sphenoid sinuses. 8 millimeter right parotid gland nodule versus prominent intraparotid lymph node on image number 6 of series 2. IMPRESSION: 1. Intact right temporomandibular joint and articular disc. 2. Mild degeneration of the left temporomandibular joint articular disc though it overall maintains a normal biconcave morphology and appears normally positioned. Left TMJ otherwise maintained. 3. Opacification of mastoid air cells bilaterally suggesting mastoiditis. 4. Sinusitis involving the maxillary sinuses, ethmoid air cells and sphenoid sinuses. 5. Incidental 8 millimeter right parotid gland nodule versus prominent intraparotid lymph node. Dictated by Reji Betancourt MD @ 01/21/2025 1:07:39 PM (Electronically Signed)
== END 2025-01-21 10:01 | disposition home or self-care (01) ==
LOC: MRI 10:01
PROVIDERS: PCP Family Medicine; Visit Provider Family Medicine
DX: M26.609 Unspecified temporomandibular joint disorder, unspecified side (principal); M26.652 Arthropathy of left temporomandibular joint; H70.003 Acute mastoiditis without complications, bilateral; J32.4 Chronic pansinusitis; K11.8 Other diseases of salivary glands
CPT/HCPCS: 70336